=== PATIENT | female | born 1955 | race Caucasian/White ===

== ENCOUNTER 2017-08-08 20:19 | Emergency (ER) | payer MEDICARE, MEDICAID ==
[~2017-08-08] VITALS: Ht 157.5 cm; Wt 90.9 kg
[~2017-08-08 20:19] MED LIST: ASPI81TA52 PO; BIMA2.5D EACHEYE; BUDE10.2 INH; CITA20TA11 PO; CLOT15CR10 TP; COU1T PO; COU5T PO; DOCU100C40 PO; FLUT16SP26 NAS; GABA-338 PO; GABA600T2 PO; HYDR-3964 PO; LANTUS SQ; LEVO112T5 PO; LINA5TAB4 PO; LISI40TA4 PO; METO100T7 PO; MONT10TA24 PO; NIFE90TA37 PO; ZOC40T PO; [UNRECOGNIZED DRUG - CODE] LEFTEYE; [UNRECOGNIZED DRUG - CODE] OP
[2017-08-08 20:58] LABS: BASOPHILS % (AUTO) 0.5 % (0-1); EOSINOPHILS # (AUTO) 0.2 X10'3 (0-0.9); EOSINOPHILS % (AUTO) 2.8 % (0-6); HEMATOCRIT 37.4 % (35.0-45.0); HEMOGLOBIN 12.8 g/dl (12.0-16.0); LYMPHOCYTES # (AUTO) 1.9 X10'3 (1.1-4.8); LYMPHOCYTES % (AUTO) 25.3 % (21-51); MEAN CORPUSCULAR HEMOGLOBIN 30.9 PG (27.0-31.0); MEAN CORPUSCULAR HGB CONC 34.2 % (33.0-36.5); MEAN CORPUSCULAR VOLUME 90.4 FL (78-98); MEAN PLATELET VOLUME 8.4 FL (7.4-10.4); MONOCYTES # (AUTO) 0.5 X10'3 (0-0.9); MONOCYTES % (AUTO) 7.4 % (2-12); NEUTROPHILS # (AUTO) 4.7 X10'3 (1.8-7.7); PLATELET COUNT 181 X10'3 (140-440); RED BLOOD COUNT 4.13 X10'6 (4.20-5.60); RED CELL DISTRIBUTION WIDTH 14.6 % (11.5-14.5); WHITE BLOOD COUNT 7.4 X10'3 (4.5-11.0)
[2017-08-08 21:08] LABS: INR 2.2 INR; PARTIAL THROMBOPLASTIN TIME 51 SECONDS (22-32); PROTHROMBIN TIME 21.9 SECONDS (9.0-12.0)
[2017-08-08 21:24] LABS: ALANINE AMINOTRANSFERASE 37 U/L (12-78); ALBUMIN 3.3 G/DL (3.4-5.0); ALBUMIN/GLOBULIN RATIO 0.9 (1.1-1.5); ALKALINE PHOSPHATASE 94 IU/L (46-116); ANION GAP 8 (8-16); ASPARTATE AMINO TRANSFERASE 28 U/L (10-37); BILIRUBIN,TOTAL 0.2 MG/DL (0.1-1.0); BLOOD UREA NITROGEN 34 MG/DL (7-18); BUN/CREATININE RATIO 27.2 (6.6-38.0); CALCIUM 9.4 MG/DL (8.5-10.1); CHLORIDE 103 MMOL/L (99-107); CREATININE 1.25 MG/DL (0.40-0.90); GLUCOSE 263 MG/DL (70-104); POTASSIUM 3.6 MMOL/L (3.5-5.1); SODIUM 139 MMOL/L (135-145); TOTAL CARBON DIOXIDE 27.6 MMOL/L (24-32); TOTAL PROTEIN 6.8 G/DL (6.4-8.2); eGFR 44 ML/MIN
[2017-08-09 01:17] VITALS: BP 137/74
== END 2017-08-09 01:18 | disposition home or self-care (01) ==
LOC: ER 20:19
DX: R07.9 Chest pain, unspecified (principal); I25.10 Atherosclerotic heart disease of native coronary artery without angina pectoris; J44.9 Chronic obstructive pulmonary disease, unspecified; G89.29 Other chronic pain; Z86.718 Personal history of other venous thrombosis and embolism; Z95.5 Presence of coronary angioplasty implant and graft; Z95.1 Presence of aortocoronary bypass graft; Z87.891 Personal history of nicotine dependence; Z56.0 Unemployment, unspecified; Z88.8 Allergy status to other drugs, medicaments and biological substances; Z88.5 Allergy status to narcotic agent; Z79.82 Long term (current) use of aspirin; Z79.01 Long term (current) use of anticoagulants; Z79.899 Other long term (current) drug therapy; Z79.4 Long term (current) use of insulin
CPT/HCPCS: 36415; 71045; 80053; 82948; 84484; 85025; 85610; 85730; 93005; 99285

== ENCOUNTER 2017-08-31 16:46 | Inpatient (IN) | payer MEDICARE, MEDICAID ==
[~2017-08-31] VITALS: Ht 157.5 cm; Wt 97.3 kg
[~2017-08-31 16:46] MED LIST changes: +etomidate 2mg/ml inj. ONE; +rocuronium 10mg/ml inj IV ONE
[2017-08-31] MEDS ORDERED: aspirin 81mg tab.chew PO ONE (17:35)
[2017-08-31 18:11] LABS: BASOPHILS % (AUTO) 0.4 % (0-1); EOSINOPHILS # (AUTO) 0.2 X10'3 (0-0.9); EOSINOPHILS % (AUTO) 2.3 % (0-6); HEMATOCRIT 36.1 % (35.0-45.0); HEMOGLOBIN 12.4 g/dl (12.0-16.0); LYMPHOCYTES # (AUTO) 1.7 X10'3 (1.1-4.8); LYMPHOCYTES % (AUTO) 15.5 % (21-51); MEAN CORPUSCULAR HEMOGLOBIN 30.9 PG (27.0-31.0); MEAN CORPUSCULAR HGB CONC 34.5 % (33.0-36.5); MEAN CORPUSCULAR VOLUME 89.6 FL (78-98); MEAN PLATELET VOLUME 8.6 FL (7.4-10.4); MONOCYTES # (AUTO) 0.9 X10'3 (0-0.9); MONOCYTES % (AUTO) 8.2 % (2-12); NEUTROPHILS # (AUTO) 7.9 X10'3 (1.8-7.7); NEUTROPHILS % (AUTO) 73.6 % (42-75); PLATELET COUNT 155 X10'3 (140-440); RED BLOOD COUNT 4.03 X10'6 (4.20-5.60); RED CELL DISTRIBUTION WIDTH 14.4 % (11.5-14.5); WHITE BLOOD COUNT 10.7 X10'3 (4.5-11.0)
[2017-08-31] MEDS ORDERED: iohexol 350MG/ML 100ml bottle IV ONE (18:20)
[2017-08-31 18:22] LABS: PARTIAL THROMBOPLASTIN TIME 50 SECONDS (22-32); PROTHROMBIN TIME 20.2 SECONDS (9.0-12.0)
[2017-08-31 18:35] LABS: ALANINE AMINOTRANSFERASE 34 U/L (12-78); ALBUMIN 3.7 G/DL (3.4-5.0); ALBUMIN/GLOBULIN RATIO 1.1 (1.1-1.5); ALKALINE PHOSPHATASE 89 IU/L (46-116); ANION GAP 9 (8-16); ASPARTATE AMINO TRANSFERASE 18 U/L (10-37); BILIRUBIN,TOTAL 0.3 MG/DL (0.1-1.0); BLOOD UREA NITROGEN 44 MG/DL (7-18); BUN/CREATININE RATIO 31.4 (6.6-38.0); CALCIUM 9.2 MG/DL (8.5-10.1); CHLORIDE 99 MMOL/L (99-107); GLUCOSE 257 MG/DL (70-104); MAGNESIUM 1.9 MG/DL (1.5-2.4); POTASSIUM 3.8 MMOL/L (3.5-5.1); SODIUM 138 MMOL/L (135-145); TOTAL CARBON DIOXIDE 30.2 MMOL/L (24-32); eGFR 38 ML/MIN
[2017-08-31] MEDS ORDERED: phytonadione inj. 10 MG in normal saline 100ml IV soln 99 ML IV STA (20:04)
[2017-08-31] MEDS ORDERED: succinylcholine 20mg/ml inj IV ONE ×2 (20:10→20:45)
[2017-08-31] MEDS ORDERED: propofol 1000mg/100ml bottle 100 ML IV ONE (20:18)
[2017-08-31] MEDS ORDERED: tranexamic acid inj. 980 MG in normal saline 100ml IV soln 90.2 ML IV ONE (20:30)
[2017-08-31] MEDS ORDERED: heparin 10,000 units/1 ML INJ ONE (20:40)
[2017-08-31] MEDS ORDERED: ceFAZolin 1000mg inj ONE (20:40)
[2017-08-31] MEDS ORDERED: MIDAZolam 5mg/ml 2ml vial IV ONE (20:45)
[2017-08-31] MEDS ORDERED: sevoflurane 250ml liquid IH ONE (20:45)
[2017-08-31] MEDS ORDERED: midazolam 100mg in NS 100ml 100 ML IV PRN (20:45)
[2017-08-31] MEDS ORDERED: insulin regular, human 10 units/0.1 ml syringe IV ONE (20:50)
[2017-08-31] MEDS ORDERED: VECuronium br 10mg inj. IV ONE (20:57)
[2017-08-31] MEDS ORDERED: midazolam 2 mg/2 ml injection ONE (20:59)
[2017-08-31] MEDS ORDERED: fentaNYL/PF 50MCG/1 ML 2ML syringe ONE (20:59)
[2017-08-31 21:05] LABS: ABG BASE EXCESS 1.5 mmol/L (-2.0-3.0); ABG HCO3 26.3 mmol/L (22.0-26.0); ABG PCO2 (T) 43.1 mmHg (32.0-45.0); ABG PH (T) 7.406 (7.350-7.450); ABG PO2 (T) 68.4 mmHg (83-108); FCOHb 0.3 % (0.5-1.5); FMetHb 0.1 % (0.3-1.12); FO2Hb 92.6 % (94-100); MINUTE VOLUME 7 L/min; PATIENT TEMPERATURE 37.5; PEEP 5 cm H2O; RESPIRATORY RATE 14 b/min; TIDAL VOLUME 400 mL; TOTAL HEMOGLOBIN 11.9 G/dl (12.0-16.0)
[2017-08-31] MEDS ORDERED: ringers solution, lacted 1,000 ML IV SCH (21:57)
[2017-08-31] MEDS ORDERED: ondansetron/PF 4mg/2ml inj IV PRN (22:00)
[2017-08-31] MEDS ORDERED: magnesium 4gm in 100ml NS 100 ML IV PRN (22:00)
[2017-08-31] MEDS ORDERED: magnesium 2GM in 50ml NS 50 ML IV PRN (22:00)
[2017-08-31] MEDS ORDERED: potassium Cl 40MEQ/NS 500ml 500 ML IV PRN ×2 (22:00)
[2017-08-31] MEDS ORDERED: morphine 2 MG/ML inj. syringe IV PRN (22:00)
[2017-08-31] MEDS ORDERED: midazolam 2 mg/2 ml injection IV ONE (22:05)
[2017-08-31] MEDS ORDERED: fentaNYL/PF 50MCG/1 ML 2ML syringe IV PRN (22:05)
[2017-08-31] MEDS: midazolam 100mg in NS 100ml 100 ML IV PRN (22:41)
[2017-08-31] MEDS: FENTANYL-0.9 % NACL/PF 100 ML IV PRN (22:41)
[2017-08-31] MEDS: labetalol 5mg/ml 20ml inj. IV PRN ×3 (22:59→23:31)
[2017-08-31 23:00] VITALS: BP 259/85
[2017-08-31 23:00] LABS: HEMATOCRIT 31.3 % (35.0-45.0); HEMOGLOBIN 10.8 g/dl (12.0-16.0); MEAN CORPUSCULAR HGB CONC 34.4 % (33.0-36.5); MEAN CORPUSCULAR VOLUME 90.3 FL (78-98); MEAN PLATELET VOLUME 8.3 FL (7.4-10.4); PLATELET COUNT 143 X10'3 (140-440); RED BLOOD COUNT 3.46 X10'6 (4.20-5.60); RED CELL DISTRIBUTION WIDTH 14.6 % (11.5-14.5); WHITE BLOOD COUNT 8.4 X10'3 (4.5-11.0)
[2017-08-31 23:21] LABS: INR 1.6 INR; PARTIAL THROMBOPLASTIN TIME 37 SECONDS (22-32); PROTHROMBIN TIME 16.1 SECONDS (9.0-12.0)
[2017-08-31 23:22] LABS: ALBUMIN 3.2 G/DL (3.4-5.0); ANION GAP 10 (8-16); BLOOD UREA NITROGEN 35 MG/DL (7-18); BUN/CREATININE RATIO 29.2 (6.6-38.0); CALCIUM 8.3 MG/DL (8.5-10.1); CHLORIDE 105 MMOL/L (99-107); GLUCOSE 140 MG/DL (70-104); POTASSIUM 3.2 MMOL/L (3.5-5.1); SODIUM 142 MMOL/L (135-145); TOTAL CARBON DIOXIDE 26.7 MMOL/L (24-32); eGFR 46 ML/MIN
[2017-08-31 23:31] LABS: ABG BASE EXCESS 2.9 mmol/L (-2.0-3.0); ABG HCO3 24.5 mmol/L (22.0-26.0); ABG OXYGEN SATURATION 98.1 % (95-98); ABG PCO2 (T) 28.7 mmHg (32.0-45.0); ABG PH (T) 7.549 (7.350-7.450); ABG PO2 (T) 122.4 mmHg (83-108); FCOHb 0.3 % (0.5-1.5); FO2Hb 97.8 % (94-100); MINUTE VOLUME 9 L/min; PEEP 5 cm H2O; RESPIRATORY RATE 14 b/min; RESPIRATORY RATE (OBSERVED) 22 b/min; TIDAL VOLUME 400 mL; TOTAL HEMOGLOBIN 12.5 G/dl (12.0-16.0)
[2017-08-31] MEDS ORDERED: hydrALAZINE 20mg/ml inj. IV ONE ×2 (23:45→23:47)
[2017-08-31] MEDS: normal saline 1000ml 1,000 ML IV SCH (23:56)
[2017-09-01] VITALS (25 sets, daily range): BP systolic 122–179; BP diastolic 46–86
[2017-09-01] MEDS ORDERED: potassium Cl 40MEQ/NS 500ml 500 ML IV ONE (00:05)
[2017-09-01] MEDS ORDERED: hydrALAZINE 20mg/ml inj. IV ONE ×2 (01:50→19:55)
[2017-09-01] MEDS: mineral oil/petrolatum ophthal oint EACHEYE SCH ×4 (01:55→19:08)
[2017-09-01 03:02] LABS: BASOPHILS % (AUTO) 0.1 % (0-1); EOSINOPHILS # (AUTO) 0.2 X10'3 (0-0.9); EOSINOPHILS % (AUTO) 1.9 % (0-6); HEMATOCRIT 32.9 % (35.0-45.0); HEMOGLOBIN 11.2 g/dl (12.0-16.0); LYMPHOCYTES # (AUTO) 1.4 X10'3 (1.1-4.8); LYMPHOCYTES % (AUTO) 15.9 % (21-51); MEAN CORPUSCULAR HEMOGLOBIN 30.8 PG (27.0-31.0); MEAN CORPUSCULAR HGB CONC 34.1 % (33.0-36.5); MEAN CORPUSCULAR VOLUME 90.5 FL (78-98); MEAN PLATELET VOLUME 8.2 FL (7.4-10.4); MONOCYTES # (AUTO) 0.7 X10'3 (0-0.9); MONOCYTES % (AUTO) 7.8 % (2-12); NEUTROPHILS # (AUTO) 6.6 X10'3 (1.8-7.7); NEUTROPHILS % (AUTO) 74.3 % (42-75); PLATELET COUNT 151 X10'3 (140-440); RED BLOOD COUNT 3.64 X10'6 (4.20-5.60); RED CELL DISTRIBUTION WIDTH 14.1 % (11.5-14.5); WHITE BLOOD COUNT 8.8 X10'3 (4.5-11.0)
[2017-09-01 03:15] LABS: INR 1.3 INR; PARTIAL THROMBOPLASTIN TIME 35 SECONDS (22-32); PROTHROMBIN TIME 13.8 SECONDS (9.0-12.0)
[2017-09-01 03:17] LABS: ANION GAP 13 (8-16); BILIRUBIN,TOTAL 0.5 MG/DL (0.1-1.0); BLOOD UREA NITROGEN 32 MG/DL (7-18); CALCIUM 8.5 MG/DL (8.5-10.1); CHLORIDE 106 MMOL/L (99-107); GLUCOSE 188 MG/DL (70-104); MAGNESIUM 1.7 MG/DL (1.5-2.4); POTASSIUM 3.5 MMOL/L (3.5-5.1); SODIUM 144 MMOL/L (135-145); TOTAL CARBON DIOXIDE 25.3 MMOL/L (24-32); eGFR 56 ML/MIN
[2017-09-01 03:18] LABS: ALANINE AMINOTRANSFERASE 29 U/L (12-78); ALBUMIN 3.4 G/DL (3.4-5.0); ALBUMIN/GLOBULIN RATIO 1.1 (1.1-1.5); ALKALINE PHOSPHATASE 72 IU/L (46-116); ASPARTATE AMINO TRANSFERASE 17 U/L (10-37); TOTAL PROTEIN 6.6 G/DL (6.4-8.2)
[2017-09-01 04:36] LABS: ABG BASE EXCESS 1.5 mmol/L (-2.0-3.0); ABG HCO3 24.9 mmol/L (22.0-26.0); ABG OXYGEN SATURATION 97.9 % (95-98); ABG PCO2 (T) 34.7 mmHg (32.0-45.0); ABG PH (T) 7.473 (7.350-7.450); ABG PO2 (T) 112.9 mmHg (83-108); FCOHb 0.3 % (0.5-1.5); FMetHb 0.3 % (0.3-1.12); FO2Hb 97.3 % (94-100); MINUTE VOLUME 7 L/min; PATIENT TEMPERATURE 36.9; PEEP 5 cm H2O; RESPIRATORY RATE 14 b/min; RESPIRATORY RATE (OBSERVED) 17 b/min; TIDAL VOLUME 400 mL; TOTAL HEMOGLOBIN 11.4 G/dl (12.0-16.0)
[2017-09-01] MEDS: FENTANYL-0.9 % NACL/PF 100 ML IV PRN ×2 (05:06→20:53)
[2017-09-01] MEDS: midazolam 100mg in NS 100ml 100 ML IV PRN (05:07)
[2017-09-01] MEDS: cefazolin 1gm/NS 100mL 100 ML IV SCH ×3 (06:20→23:20)
[2017-09-01] MEDS: pantoprazole 40 MG vial IV SCH (08:14)
[2017-09-01] MEDS ORDERED: HYDROcodone/acetaminophen 5mg/325mg tablet PO PRN (12:10)
[2017-09-01] MEDS ORDERED: iohexol 300mg/ml 100ml inj. ONE (12:20)
[2017-09-01] MEDS ORDERED: DORZ10DR2 (12:49)
[2017-09-01] MEDS: normal saline 1000ml 1,000 ML IV SCH ×3 (13:21→23:20)
[2017-09-01] MEDS: lactobacillus rhamnosus 10,000 MMU CELLS/CAPSULE PO SCH (17:46)
[2017-09-01] MEDS: gabapentin 300mg capsule PO SCH (19:08)
[2017-09-01] MEDS: prednisoLONE acetate 1% ophth susp 5ml LEFTEYE SCH (19:09)
[2017-09-01] MEDS: latanoprost 0.005% 2.5ml ophthalmic drops EACHEYE SCH (19:11)
[2017-09-01] MEDS: DORZOLAMIDE EACHEYE SCH (19:11)
[2017-09-01] MEDS ORDERED: gabapentin 300mg capsule PO SCH (21:00)
[2017-09-02] VITALS (24 sets, daily range): BP systolic 83–196; BP diastolic 40–88
[2017-09-02] MEDS: midazolam 100mg in NS 100ml 100 ML IV PRN (01:43)
[2017-09-02] MEDS: mineral oil/petrolatum ophthal oint EACHEYE SCH ×4 (01:43→20:04)
[2017-09-02 02:52] LABS: BASOPHILS % (AUTO) 0.4 % (0-1); EOSINOPHILS # (AUTO) 0.2 X10'3 (0-0.9); EOSINOPHILS % (AUTO) 2.6 % (0-6); HEMOGLOBIN 10.4 g/dl (12.0-16.0); LYMPHOCYTES # (AUTO) 1.4 X10'3 (1.1-4.8); MEAN CORPUSCULAR HEMOGLOBIN 30.7 PG (27.0-31.0); MEAN CORPUSCULAR HGB CONC 33.5 % (33.0-36.5); MEAN CORPUSCULAR VOLUME 91.7 FL (78-98); MEAN PLATELET VOLUME 8.3 FL (7.4-10.4); MONOCYTES # (AUTO) 0.8 X10'3 (0-0.9); MONOCYTES % (AUTO) 9.2 % (2-12); NEUTROPHILS # (AUTO) 6.2 X10'3 (1.8-7.7); NEUTROPHILS % (AUTO) 71.8 % (42-75); PLATELET COUNT 139 X10'3 (140-440); RED BLOOD COUNT 3.38 X10'6 (4.20-5.60); RED CELL DISTRIBUTION WIDTH 14.9 % (11.5-14.5); WHITE BLOOD COUNT 8.7 X10'3 (4.5-11.0)
[2017-09-02 03:08] LABS: INR 1.1 INR; PARTIAL THROMBOPLASTIN TIME 34 SECONDS (22-32); PROTHROMBIN TIME 10.9 SECONDS (9.0-12.0)
[2017-09-02 03:23] LABS: ALANINE AMINOTRANSFERASE 24 U/L (12-78); ALBUMIN 2.7 G/DL (3.4-5.0); ALBUMIN/GLOBULIN RATIO 0.8 (1.1-1.5); ALKALINE PHOSPHATASE 65 IU/L (46-116); ANION GAP 7 (8-16); ASPARTATE AMINO TRANSFERASE 15 U/L (10-37); BILIRUBIN,TOTAL 0.4 MG/DL (0.1-1.0); BLOOD UREA NITROGEN 19 MG/DL (7-18); CHLORIDE 110 MMOL/L (99-107); GLUCOSE 144 MG/DL (70-104); MAGNESIUM 1.7 MG/DL (1.5-2.4); POTASSIUM 3.3 MMOL/L (3.5-5.1); SODIUM 143 MMOL/L (135-145); TOTAL CARBON DIOXIDE 26.3 MMOL/L (24-32); TOTAL PROTEIN 6.1 G/DL (6.4-8.2); eGFR 56 ML/MIN
[2017-09-02 04:01] LABS: ABG BASE EXCESS 0.1 mmol/L (-2.0-3.0); ABG HCO3 23.4 mmol/L (22.0-26.0); ABG OXYGEN SATURATION 95.5 % (95-98); ABG PCO2 (T) 33.9 mmHg (32.0-45.0); ABG PH (T) 7.458 (7.350-7.450); ABG PO2 (T) 78.5 mmHg (83-108); FCOHb 0.3 % (0.5-1.5); FMetHb 0.3 % (0.3-1.12); FO2Hb 94.9 % (94-100); MINUTE VOLUME 10 L/min; PATIENT TEMPERATURE 37.7; PEEP 5 cm H2O; RESPIRATORY RATE 14 b/min; RESPIRATORY RATE (OBSERVED) 23 b/min; TIDAL VOLUME 400 mL; TOTAL HEMOGLOBIN 10.9 G/dl (12.0-16.0)
[2017-09-02] MEDS ORDERED: potassium Cl 40MEQ/NS 500ml 500 ML IV ONE (04:15)
[2017-09-02] MEDS: lactobacillus rhamnosus 10,000 MMU CELLS/CAPSULE PO SCH ×2 (07:39→17:58)
[2017-09-02] MEDS: gabapentin 300mg capsule PO SCH ×2 (07:40→20:08)
[2017-09-02] MEDS: citalopram 20mg tablet PO SCH (07:40)
[2017-09-02] MEDS: pantoprazole 40 MG vial IV SCH (07:40)
[2017-09-02] MEDS: NIFEdipine XL 30mg tablet PO SCH (07:41)
[2017-09-02] MEDS: montelukast 10mg tablet PO SCH (07:41)
[2017-09-02] MEDS: levoTHYROXINE 112mcg tablet PO SCH (07:42)
[2017-09-02] MEDS: lisinopril 20mg tablet PO SCH (07:42)
[2017-09-02] MEDS: fluticasone nasal spray 16GM bottle NS SCH (07:43)
[2017-09-02] MEDS: prednisoLONE acetate 1% ophth susp 5ml LEFTEYE SCH ×2 (07:43→20:08)
[2017-09-02] MEDS: clotrimazole topical cream 15gm tube TP SCH (07:43)
[2017-09-02] MEDS: fluticasone/vilanterol 200mcg/25mcg inhaler IH SCH (08:00)
[2017-09-02] MEDS: docusate sod 100mg capsule PO SCH (08:00)
[2017-09-02] MEDS ORDERED: metoprolol succinate 25mg (24-HOUR) SR. Tablet PO SCH (08:00)
[2017-09-02] MEDS: DORZOLAMIDE EACHEYE SCH ×2 (08:00→20:04)
[2017-09-02] MEDS: cefazolin 1gm/NS 100mL 100 ML IV SCH (10:13)
[2017-09-02] MEDS ORDERED: NORepinephrine 8mg/ 250ml NS 250 ML IV SCH (12:10)
[2017-09-02] MEDS ORDERED: furosemide 20 MG/2 ML vial IV ONE (12:10)
[2017-09-02] MEDS ORDERED: albumin (human) 25% 100 ML IV solution IV ONE (12:15)
[2017-09-02] MEDS: furosemide 40mg/4ml inj IV SCH ×2 (12:15→20:12)
[2017-09-02] MEDS ORDERED: albumin (human) 25% 100ml IV 100 ML IV ONE (12:45)
[2017-09-02] MEDS: methylPREDNISolone sod succ 125mg/2ml vial IV SCH ×2 (14:31→20:05)
[2017-09-02] MEDS ORDERED: dextrose ORAL solution 15 GM/59 ML bottle PO PRN ×2 (15:05)
[2017-09-02] MEDS ORDERED: dextrose 50%-water 50ml dispensing syringe IV PRN ×2 (15:05)
[2017-09-02] MEDS ORDERED: MESSAGE TO PHARMACY PO ONE (15:05)
[2017-09-02] MEDS ORDERED: glucagon, human recombinant 1mg kit SUBCUT PRN (15:05)
[2017-09-02] MEDS ORDERED: insulin Lispro (HumaLOG) vial - multi-dose SQ SCH (15:05)
[2017-09-02] MEDS: normal saline 1000ml 1,000 ML IV SCH (16:07)
[2017-09-02] MEDS: insulin regular, human vial - multi-dose SQ SCH (19:01)
[2017-09-02] MEDS: piperacillin/tazo 3.375gm/50ml 50 ML IV SCH (20:07)
[2017-09-02] MEDS: latanoprost 0.005% 2.5ml ophthalmic drops EACHEYE SCH (20:09)
[2017-09-02] MEDS: insulin glargine (Lantus) pen - multi-dose SQ SCH (20:19)
[2017-09-02] MEDS: FENTANYL-0.9 % NACL/PF 100 ML IV PRN (21:12)
[2017-09-02 21:14] LABS: HEMOGLOBIN A1C 8.8 % (4.5-6.2)
[2017-09-03] VITALS (23 sets, daily range): BP systolic 136–158; BP diastolic 48–64
[2017-09-03] MEDS: methylPREDNISolone sod succ 125mg/2ml vial IV SCH ×4 (02:07→20:02)
[2017-09-03] MEDS: piperacillin/tazo 3.375gm/50ml 50 ML IV SCH ×4 (02:08→20:03)
[2017-09-03] MEDS: mineral oil/petrolatum ophthal oint EACHEYE SCH ×4 (02:08→20:03)
[2017-09-03 02:30] LABS: BASOPHILS % (AUTO) 0.1 % (0-1); EOSINOPHILS # (AUTO) 0.1 X10'3 (0-0.9); EOSINOPHILS % (AUTO) 1.1 % (0-6); LYMPHOCYTES # (AUTO) 0.5 X10'3 (1.1-4.8); LYMPHOCYTES % (AUTO) 6.8 % (21-51); MEAN CORPUSCULAR HEMOGLOBIN 31.3 PG (27.0-31.0); MEAN CORPUSCULAR HGB CONC 34.6 % (33.0-36.5); MEAN CORPUSCULAR VOLUME 90.5 FL (78-98); MEAN PLATELET VOLUME 8.6 FL (7.4-10.4); MONOCYTES # (AUTO) 0.1 X10'3 (0-0.9); MONOCYTES % (AUTO) 1.4 % (2-12); NEUTROPHILS # (AUTO) 6.6 X10'3 (1.8-7.7); NEUTROPHILS % (AUTO) 90.6 % (42-75); PLATELET COUNT 124 X10'3 (140-440); RED CELL DISTRIBUTION WIDTH 14.3 % (11.5-14.5); WHITE BLOOD COUNT 7.2 X10'3 (4.5-11.0)
[2017-09-03 02:41] LABS: INR 1.1 INR; PARTIAL THROMBOPLASTIN TIME 34 SECONDS (22-32)
[2017-09-03] MEDS: insulin regular, human vial - multi-dose SQ SCH ×3 (02:42→13:45)
[2017-09-03 02:47] LABS: ALANINE AMINOTRANSFERASE 25 U/L (12-78); ALBUMIN 3.4 G/DL (3.4-5.0); ALKALINE PHOSPHATASE 61 IU/L (46-116); ANION GAP 13 (8-16); ASPARTATE AMINO TRANSFERASE 20 U/L (10-37); BILIRUBIN,TOTAL 0.5 MG/DL (0.1-1.0); BLOOD UREA NITROGEN 32 MG/DL (7-18); CALCIUM 8.1 MG/DL (8.5-10.1); CHLORIDE 108 MMOL/L (99-107); GLUCOSE 324 MG/DL (70-104); MAGNESIUM 1.7 MG/DL (1.5-2.4); POTASSIUM 3.2 MMOL/L (3.5-5.1); SODIUM 142 MMOL/L (135-145); TOTAL CARBON DIOXIDE 20.7 MMOL/L (24-32); TOTAL PROTEIN 6.7 G/DL (6.4-8.2); eGFR 33 ML/MIN
[2017-09-03 03:41] LABS: ABG HCO3 18.1 mmol/L (22.0-26.0); ABG OXYGEN SATURATION 91.3 % (95-98); ABG PCO2 (T) 26.9 mmHg (32.0-45.0); ABG PH (T) 7.442 (7.350-7.450); ABG PO2 (T) 56.5 mmHg (83-108); FCOHb 0.2 % (0.5-1.5); FMetHb 0.3 % (0.3-1.12); FO2Hb 90.8 % (94-100); MINUTE VOLUME 8 L/min; PATIENT TEMPERATURE 36.3; PEEP 5 cm H2O; RESPIRATORY RATE 14 b/min; RESPIRATORY RATE (OBSERVED) 20 b/min; TIDAL VOLUME 400 mL; TOTAL HEMOGLOBIN 11.2 G/dl (12.0-16.0)
[2017-09-03] MEDS: normal saline 1000ml 1,000 ML IV SCH ×2 (04:02→11:55)
[2017-09-03] MEDS ORDERED: potassium Cl 40MEQ/NS 500ml 500 ML IV ONE (05:02)
[2017-09-03] MEDS: docusate sod 100mg capsule PO SCH (08:00)
[2017-09-03] MEDS: NIFEdipine XL 30mg tablet PO SCH (08:00)
[2017-09-03] MEDS: fluticasone/vilanterol 200mcg/25mcg inhaler IH SCH (08:00)
[2017-09-03] MEDS: lisinopril 20mg tablet PO SCH (08:54)
[2017-09-03] MEDS: levoTHYROXINE 112mcg tablet PO SCH (08:54)
[2017-09-03] MEDS: montelukast 10mg tablet PO SCH (08:54)
[2017-09-03] MEDS: amLODIPine 5mg tablet PO SCH (08:54)
[2017-09-03] MEDS: citalopram 20mg tablet PO SCH (08:54)
[2017-09-03] MEDS: gabapentin 300mg capsule PO SCH ×2 (08:54→20:05)
[2017-09-03] MEDS: clotrimazole topical cream 15gm tube TP SCH (08:55)
[2017-09-03] MEDS: furosemide 40mg/4ml inj IV SCH ×2 (08:55→20:02)
[2017-09-03] MEDS: pantoprazole 40 MG vial IV SCH (08:55)
[2017-09-03] MEDS: fluticasone nasal spray 16GM bottle NS SCH (08:56)
[2017-09-03] MEDS: prednisoLONE acetate 1% ophth susp 5ml LEFTEYE SCH ×2 (08:56→20:04)
[2017-09-03] MEDS: DORZOLAMIDE EACHEYE SCH ×2 (08:58→20:04)
[2017-09-03] MEDS: lactobacillus rhamnosus 10,000 MMU CELLS/CAPSULE PO SCH ×2 (09:12→16:33)
[2017-09-03] MEDS: ipratropium/albuterol 3ml nebule NEB SCH ×4 (10:50→23:27)
[2017-09-03] MEDS: midazolam 100mg in NS 100ml 100 ML IV PRN (16:34)
[2017-09-03 20:01] LABS: ABG HCO3 20.9 mmol/L (22.0-26.0); ABG OXYGEN SATURATION 94.6 % (95-98); ABG PCO2 (T) 36.1 mmHg (32.0-45.0); ABG PH (T) 7.377 (7.350-7.450); ABG PO2 (T) 70.4 mmHg (83-108); FCOHb 0.3 % (0.5-1.5); FMetHb 0.3 % (0.3-1.12); MINUTE VOLUME 7 L/min; PATIENT TEMPERATURE 36.3; PEEP 8 cm H2O; RESPIRATORY RATE 12 b/min; RESPIRATORY RATE (OBSERVED) 12 b/min; TIDAL VOLUME 500 mL; TOTAL HEMOGLOBIN 11.6 G/dl (12.0-16.0)
[2017-09-03] MEDS: latanoprost 0.005% 2.5ml ophthalmic drops EACHEYE SCH (20:05)
[2017-09-03] MEDS ORDERED: potassium CL 20mEq in D5-1/2NS 1,000 ML IV PRN (20:25)
[2017-09-03] MEDS ORDERED: insulin regular, human 10 units/0.1 ml syringe SQ PRN (20:25)
[2017-09-03] MEDS: metoprolol succinate 25mg (24-HOUR) SR. Tablet PO SCH (21:00)
[2017-09-03] MEDS: insulin regular, DKA only 100 UNIT in normal saline 100ml IV soln 99 ML IV SCH ×2 (21:25)
[2017-09-03] MEDS: insulin glargine (Lantus) pen - multi-dose SQ SCH (21:29)
[2017-09-03] MEDS: insulin Lispro (HumaLOG) vial - multi-dose SQ SCH ×2 (22:12→23:04)
[2017-09-03 22:56] LABS: ALBUMIN 3.1 G/DL (3.4-5.0); ANION GAP 12 (8-16); BLOOD UREA NITROGEN 46 MG/DL (7-18); BUN/CREATININE RATIO 30.7 (6.6-38.0); CALCIUM 8.1 MG/DL (8.5-10.1); CHLORIDE 109 MMOL/L (99-107); GLUCOSE 439 MG/DL (70-104); SODIUM 143 MMOL/L (135-145); TOTAL CARBON DIOXIDE 21.9 MMOL/L (24-32); eGFR 35 ML/MIN
[2017-09-03 23:05] LABS: POTASSIUM 2.8 MMOL/L (3.5-5.1)
[2017-09-03] MEDS ORDERED: potassium Cl 40MEQ/250ML bag 500 ML IV ONE (23:14)
[2017-09-03] MEDS: potassium Cl 40MEQ/250ML bag 250 ML IV PRN (23:19)
[2017-09-03] MEDS: FENTANYL-0.9 % NACL/PF 100 ML IV PRN (23:23)
[2017-09-04] VITALS (24 sets, daily range): BP systolic 139–166; BP diastolic 44–59
[2017-09-04] MEDS: insulin Lispro (HumaLOG) vial - multi-dose SQ SCH ×6 (00:03→05:02)
[2017-09-04 01:39] LABS: ALBUMIN 3.1 G/DL (3.4-5.0); ANION GAP 12 (8-16); BLOOD UREA NITROGEN 45 MG/DL (7-18); BUN/CREATININE RATIO 32.1 (6.6-38.0); CALCIUM 8.2 MG/DL (8.5-10.1); CHLORIDE 110 MMOL/L (99-107); GLUCOSE 378 MG/DL (70-104); POTASSIUM 3.3 MMOL/L (3.5-5.1); SODIUM 145 MMOL/L (135-145); TOTAL CARBON DIOXIDE 23.2 MMOL/L (24-32); eGFR 38 ML/MIN
[2017-09-04] MEDS: insulin regular, DKA only 100 UNIT in normal saline 100ml IV soln 99 ML IV SCH ×12 (02:16→14:34)
[2017-09-04] MEDS: methylPREDNISolone sod succ 125mg/2ml vial IV SCH ×4 (02:22→19:46)
[2017-09-04] MEDS: mineral oil/petrolatum ophthal oint EACHEYE SCH ×4 (02:22→19:47)
[2017-09-04] MEDS: piperacillin/tazo 3.375gm/50ml 50 ML IV SCH ×4 (02:22→19:46)
[2017-09-04] MEDS ORDERED: VANCOMYCIN LEVEL IV NR (03:30)
[2017-09-04 03:38] LABS: PARTIAL THROMBOPLASTIN TIME 29 SECONDS (22-32); PROTHROMBIN TIME 10.7 SECONDS (9.0-12.0)
[2017-09-04 03:41] LABS: ALANINE AMINOTRANSFERASE 16 U/L (12-78); ALBUMIN/GLOBULIN RATIO 0.9 (1.1-1.5); ALKALINE PHOSPHATASE 62 IU/L (46-116); ANION GAP 11 (8-16); ASPARTATE AMINO TRANSFERASE 12 U/L (10-37); BILIRUBIN,TOTAL 0.3 MG/DL (0.1-1.0); BLOOD UREA NITROGEN 46 MG/DL (7-18); BUN/CREATININE RATIO 32.9 (6.6-38.0); CALCIUM 8.4 MG/DL (8.5-10.1); CHLORIDE 111 MMOL/L (99-107); GLUCOSE 342 MG/DL (70-104); MAGNESIUM 1.6 MG/DL (1.5-2.4); POTASSIUM 3.1 MMOL/L (3.5-5.1); PREALBUMIN 15.7 MG/DL (19-36); SODIUM 146 MMOL/L (135-145); TOTAL CARBON DIOXIDE 24.2 MMOL/L (24-32); TOTAL PROTEIN 6.5 G/DL (6.4-8.2); eGFR 38 ML/MIN
[2017-09-04] MEDS: ipratropium/albuterol 3ml nebule NEB SCH ×6 (03:44→23:13)
[2017-09-04 03:52] LABS: BASOPHILS % (AUTO) 0 % (0-1); EOSINOPHILS # (AUTO) 0.1 X10'3 (0-0.9); EOSINOPHILS % (AUTO) 1.3 % (0-6); HEMATOCRIT 30.2 % (35.0-45.0); LYMPHOCYTES # (AUTO) 0.4 X10'3 (1.1-4.8); MEAN CORPUSCULAR HEMOGLOBIN 30.4 PG (27.0-31.0); MEAN CORPUSCULAR HGB CONC 33.1 % (33.0-36.5); MEAN CORPUSCULAR VOLUME 91.8 FL (78-98); MEAN PLATELET VOLUME 9.1 FL (7.4-10.4); MONOCYTES # (AUTO) 0.3 X10'3 (0-0.9); MONOCYTES % (AUTO) 3.5 % (2-12); NEUTROPHILS # (AUTO) 8.4 X10'3 (1.8-7.7); NEUTROPHILS % (AUTO) 91.2 % (42-75); PLATELET COUNT 172 X10'3 (140-440); RED BLOOD COUNT 3.29 X10'6 (4.20-5.60); RED CELL DISTRIBUTION WIDTH 14.7 % (11.5-14.5); WHITE BLOOD COUNT 9.2 X10'3 (4.5-11.0)
[2017-09-04 04:01] LABS: ABG BASE EXCESS -3.9 mmol/L (-2.0-3.0); ABG HCO3 20.7 mmol/L (22.0-26.0); ABG OXYGEN SATURATION 93.5 % (95-98); ABG PCO2 (T) 34.9 mmHg (32.0-45.0); ABG PH (T) 7.388 (7.350-7.450); ABG PO2 (T) 67.7 mmHg (83-108); FCOHb 0.2 % (0.5-1.5); FMetHb 0.3 % (0.3-1.12); MINUTE VOLUME 7 L/min; PATIENT TEMPERATURE 36.5; PEEP 8 cm H2O; RESPIRATORY RATE 12 b/min; RESPIRATORY RATE (OBSERVED) 12 b/min; TIDAL VOLUME 500 mL; TOTAL HEMOGLOBIN 10.7 G/dl (12.0-16.0)
[2017-09-04] MEDS ORDERED: insulin R INFUSION 1 ML IV ONE (04:36)
[2017-09-04 05:10] LABS: VANCOMYCIN,TROUGH 29.5 UG/ML (6.0-14.0)
[2017-09-04] MEDS: potassium Cl 40MEQ/250ML bag 250 ML IV PRN ×2 (06:02→20:35)
[2017-09-04] MEDS: fluticasone/vilanterol 200mcg/25mcg inhaler IH SCH (08:00)
[2017-09-04] MEDS: docusate sodium 100mg/10ml UD cup PO SCH (08:17)
[2017-09-04] MEDS: amLODIPine 5mg tablet PO SCH (08:18)
[2017-09-04] MEDS: lisinopril 20mg tablet PO SCH (08:19)
[2017-09-04] MEDS: lactobacillus rhamnosus 10,000 MMU CELLS/CAPSULE PO SCH ×2 (08:19→16:47)
[2017-09-04] MEDS: levoTHYROXINE 112mcg tablet PO SCH (08:20)
[2017-09-04] MEDS: gabapentin 300mg capsule PO SCH ×2 (08:20→19:47)
[2017-09-04] MEDS: montelukast 10mg tablet PO SCH (08:21)
[2017-09-04] MEDS: citalopram 20mg tablet PO SCH (08:21)
[2017-09-04] MEDS: pantoprazole 40 MG vial IV SCH (08:22)
[2017-09-04] MEDS: furosemide 40mg/4ml inj IV SCH ×2 (08:22→19:46)
[2017-09-04] MEDS: DORZOLAMIDE EACHEYE SCH ×2 (08:29→20:39)
[2017-09-04] MEDS: prednisoLONE acetate 1% ophth susp 5ml LEFTEYE SCH ×2 (08:31→20:39)
[2017-09-04] MEDS: fluticasone nasal spray 16GM bottle NS SCH (08:31)
[2017-09-04] MEDS: clotrimazole topical cream 15gm tube TP SCH (08:32)
[2017-09-04] MEDS: midazolam 100mg in NS 100ml 100 ML IV PRN (09:13)
[2017-09-04] MEDS: vancomycin/NS 1 GM ADD-VANTAGE 250 ML IV SCH (16:47)
[2017-09-04] MEDS: FENTANYL-0.9 % NACL/PF 100 ML IV PRN (19:55)
[2017-09-04] MEDS: latanoprost 0.005% 2.5ml ophthalmic drops EACHEYE SCH (20:39)
[2017-09-04] MEDS: metoprolol succinate 25mg (24-HOUR) SR. Tablet PO SCH (20:39)
[2017-09-05] VITALS (25 sets, daily range): BP systolic 155–207; BP diastolic 55–86
[2017-09-05] MEDS: methylPREDNISolone sod succ 125mg/2ml vial IV SCH ×2 (01:45→08:14)
[2017-09-05] MEDS: mineral oil/petrolatum ophthal oint EACHEYE SCH ×4 (01:45→19:58)
[2017-09-05] MEDS: piperacillin/tazo 3.375gm/50ml 50 ML IV SCH ×2 (01:45→08:13)
[2017-09-05] MEDS: midazolam 100mg in NS 100ml 100 ML IV PRN ×2 (01:58→21:50)
[2017-09-05 02:35] LABS: ABG BASE EXCESS 0.4 mmol/L (-2.0-3.0); ABG HCO3 24.9 mmol/L (22.0-26.0); ABG OXYGEN SATURATION 91.5 % (95-98); ABG PH (T) 7.413 (7.350-7.450); ABG PO2 (T) 60.1 mmHg (83-108); FCOHb 0.3 % (0.5-1.5); FMetHb 0.3 % (0.3-1.12); MINUTE VOLUME 7 L/min; PATIENT TEMPERATURE 37.3; PEEP 5 cm H2O; RESPIRATORY RATE 16 b/min; RESPIRATORY RATE (OBSERVED) 16 b/min; TIDAL VOLUME 400 mL; TOTAL HEMOGLOBIN 10.8 G/dl (12.0-16.0)
[2017-09-05] MEDS: ipratropium/albuterol 3ml nebule NEB SCH ×6 (02:44→23:20)
[2017-09-05 03:38] LABS: BASOPHILS % (AUTO) 0 % (0-1); EOSINOPHILS # (AUTO) 0.2 X10'3 (0-0.9); EOSINOPHILS % (AUTO) 1.6 % (0-6); HEMATOCRIT 30.7 % (35.0-45.0); HEMOGLOBIN 10.2 g/dl (12.0-16.0); LYMPHOCYTES # (AUTO) 0.5 X10'3 (1.1-4.8); LYMPHOCYTES % (AUTO) 4.2 % (21-51); MEAN CORPUSCULAR HEMOGLOBIN 30.6 PG (27.0-31.0); MEAN CORPUSCULAR HGB CONC 33.4 % (33.0-36.5); MEAN CORPUSCULAR VOLUME 91.6 FL (78-98); MEAN PLATELET VOLUME 8.5 FL (7.4-10.4); MONOCYTES # (AUTO) 0.6 X10'3 (0-0.9); MONOCYTES % (AUTO) 4.7 % (2-12); NEUTROPHILS # (AUTO) 10.7 X10'3 (1.8-7.7); NEUTROPHILS % (AUTO) 89.5 % (42-75); PLATELET COUNT 194 X10'3 (140-440); RED BLOOD COUNT 3.35 X10'6 (4.20-5.60); RED CELL DISTRIBUTION WIDTH 14.8 % (11.5-14.5)
[2017-09-05 03:52] LABS: PARTIAL THROMBOPLASTIN TIME 25 SECONDS (22-32); PROTHROMBIN TIME 10.3 SECONDS (9.0-12.0)
[2017-09-05] MEDS: vancomycin/NS 1 GM ADD-VANTAGE 250 ML IV SCH (03:54)
[2017-09-05 04:04] LABS: ALANINE AMINOTRANSFERASE 17 U/L (12-78); ALBUMIN 2.9 G/DL (3.4-5.0); ALBUMIN/GLOBULIN RATIO 0.8 (1.1-1.5); ALKALINE PHOSPHATASE 58 IU/L (46-116); ANION GAP 9 (8-16); ASPARTATE AMINO TRANSFERASE 11 U/L (10-37); BILIRUBIN,TOTAL 0.3 MG/DL (0.1-1.0); BLOOD UREA NITROGEN 56 MG/DL (7-18); BUN/CREATININE RATIO 43.1 (6.6-38.0); CALCIUM 8.6 MG/DL (8.5-10.1); CHLORIDE 117 MMOL/L (99-107); GLUCOSE 150 MG/DL (70-104); MAGNESIUM 1.6 MG/DL (1.5-2.4); POTASSIUM 3.1 MMOL/L (3.5-5.1); SODIUM 153 MMOL/L (135-145); TOTAL CARBON DIOXIDE 26.7 MMOL/L (24-32); TOTAL PROTEIN 6.4 G/DL (6.4-8.2); eGFR 42 ML/MIN
[2017-09-05] MEDS: amLODIPine 5mg tablet PO SCH (05:13)
[2017-09-05] MEDS: lisinopril 20mg tablet PO SCH (05:13)
[2017-09-05] MEDS: potassium Cl 40MEQ/250ML bag 250 ML IV PRN ×3 (05:48→21:18)
[2017-09-05] MEDS: fluticasone/vilanterol 200mcg/25mcg inhaler IH SCH (06:27)
[2017-09-05] MEDS: citalopram 20mg tablet PO SCH (08:00)
[2017-09-05] MEDS: DORZOLAMIDE EACHEYE SCH ×2 (08:00→19:59)
[2017-09-05] MEDS: docusate sodium 100mg/10ml UD cup PO SCH (08:12)
[2017-09-05] MEDS: levoTHYROXINE 112mcg tablet PO SCH (08:12)
[2017-09-05] MEDS: montelukast 10mg tablet PO SCH (08:12)
[2017-09-05] MEDS: lactobacillus rhamnosus 10,000 MMU CELLS/CAPSULE PO SCH ×2 (08:12→16:52)
[2017-09-05] MEDS: gabapentin 300mg capsule PO SCH ×2 (08:13→19:58)
[2017-09-05] MEDS: pantoprazole 40 MG vial IV SCH (08:13)
[2017-09-05] MEDS: furosemide 40mg/4ml inj IV SCH ×2 (08:14→16:52)
[2017-09-05] MEDS: clotrimazole topical cream 15gm tube TP SCH (08:14)
[2017-09-05] MEDS: prednisoLONE acetate 1% ophth susp 5ml LEFTEYE SCH ×2 (08:14→19:58)
[2017-09-05] MEDS: fluticasone nasal spray 16GM bottle NS SCH (08:15)
[2017-09-05] MEDS: insulin regular, DKA only 100 UNIT in normal saline 100ml IV soln 99 ML IV SCH ×14 (08:33→18:19)
[2017-09-05] MEDS ORDERED: dexmedetomidine inj. 400 MCG in normal saline 100ml IV soln 100 ML IV PRN (09:45)
[2017-09-05] MEDS: FENTANYL-0.9 % NACL/PF 100 ML IV PRN ×2 (11:42→19:17)
[2017-09-05] MEDS: methylPREDNISolone sod succ/PF 40mg inj. IV SCH ×2 (13:48→19:59)
[2017-09-05] MEDS: metoprolol tartrate 50mg tablet PO SCH ×2 (13:48→16:54)
[2017-09-05] MEDS ORDERED: insulin glargine (Lantus) pen - multi-dose SQ ONE (17:50)
[2017-09-05] MEDS ORDERED: acetaminophen 325mg tablet PO PRN (17:50)
[2017-09-05] MEDS: insulin glargine (Lantus) pen - multi-dose SQ SCH (21:07)
[2017-09-05] MEDS: latanoprost 0.005% 2.5ml ophthalmic drops EACHEYE SCH (21:11)
[2017-09-05] MEDS ORDERED: insulin R INFUSION 1 ML IV ONE (23:22)
[2017-09-06] VITALS (24 sets, daily range): BP systolic 177–207; BP diastolic 56–76
[2017-09-06] MEDS: insulin regular, DKA only 100 UNIT in normal saline 100ml IV soln 99 ML IV SCH ×26 (00:18→21:07)
[2017-09-06 01:28] LABS: PARTIAL THROMBOPLASTIN TIME 24 SECONDS (22-32); PROTHROMBIN TIME 10.4 SECONDS (9.0-12.0)
[2017-09-06 01:35] LABS: ALANINE AMINOTRANSFERASE 25 U/L (12-78); ALBUMIN 2.9 G/DL (3.4-5.0); ALBUMIN/GLOBULIN RATIO 0.8 (1.1-1.5); ALKALINE PHOSPHATASE 57 IU/L (46-116); ANION GAP 10 (8-16); ASPARTATE AMINO TRANSFERASE 13 U/L (10-37); BILIRUBIN,TOTAL 0.3 MG/DL (0.1-1.0); BLOOD UREA NITROGEN 62 MG/DL (7-18); BUN/CREATININE RATIO 51.7 (6.6-38.0); CALCIUM 8.7 MG/DL (8.5-10.1); CHLORIDE 118 MMOL/L (99-107); GLUCOSE 172 MG/DL (70-104); MAGNESIUM 1.6 MG/DL (1.5-2.4); POTASSIUM 3.5 MMOL/L (3.5-5.1); TOTAL CARBON DIOXIDE 28.5 MMOL/L (24-32); TOTAL PROTEIN 6.4 G/DL (6.4-8.2); eGFR 46 ML/MIN
[2017-09-06 01:38] LABS: SODIUM 156 MMOL/L (135-145)
[2017-09-06 02:05] LABS: BASOPHILS % (AUTO) 0 % (0-1); EOSINOPHILS # (AUTO) 0.1 X10'3 (0-0.9); EOSINOPHILS % (AUTO) 1.1 % (0-6); HEMATOCRIT 31.3 % (35.0-45.0); HEMOGLOBIN 10.4 g/dl (12.0-16.0); LYMPHOCYTES # (AUTO) 0.6 X10'3 (1.1-4.8); LYMPHOCYTES % (AUTO) 6.2 % (21-51); MEAN CORPUSCULAR HEMOGLOBIN 30.6 PG (27.0-31.0); MEAN CORPUSCULAR HGB CONC 33.3 % (33.0-36.5); MEAN CORPUSCULAR VOLUME 91.8 FL (78-98); MEAN PLATELET VOLUME 8.4 FL (7.4-10.4); MONOCYTES # (AUTO) 0.6 X10'3 (0-0.9); MONOCYTES % (AUTO) 6.3 % (2-12); NEUTROPHILS # (AUTO) 8.5 X10'3 (1.8-7.7); NEUTROPHILS % (AUTO) 86.4 % (42-75); PLATELET COUNT 198 X10'3 (140-440); RED BLOOD COUNT 3.41 X10'6 (4.20-5.60); RED CELL DISTRIBUTION WIDTH 15.1 % (11.5-14.5); WHITE BLOOD COUNT 9.8 X10'3 (4.5-11.0)
[2017-09-06] MEDS: methylPREDNISolone sod succ/PF 40mg inj. IV SCH ×4 (02:22→19:46)
[2017-09-06] MEDS: mineral oil/petrolatum ophthal oint EACHEYE SCH ×4 (02:23→19:49)
[2017-09-06 02:34] LABS: VANCOMYCIN,TROUGH 18.5 UG/ML (6.0-14.0)
[2017-09-06 02:50] LABS: ABG BASE EXCESS 1.8 mmol/L (-2.0-3.0); ABG HCO3 26.1 mmol/L (22.0-26.0); ABG OXYGEN SATURATION 91.8 % (95-98); ABG PCO2 (T) 41.2 mmHg (32.0-45.0); ABG PH (T) 7.423 (7.350-7.450); FCOHb 0.3 % (0.5-1.5); FMetHb 0.3 % (0.3-1.12); FO2Hb 91.2 % (94-100); PATIENT TEMPERATURE 37.9; PEEP 5 cm H2O; RESPIRATORY RATE 16 b/min; RESPIRATORY RATE (OBSERVED) 18 b/min; TIDAL VOLUME 400 mL; TOTAL HEMOGLOBIN 11.2 G/dl (12.0-16.0)
[2017-09-06] MEDS: ipratropium/albuterol 3ml nebule NEB SCH ×6 (02:50→23:27)
[2017-09-06] MEDS ORDERED: VANCOMYCIN LEVEL IV NR (03:30)
[2017-09-06] MEDS ORDERED: insulin R INFUSION 1 ML IV ONE (04:06)
[2017-09-06] MEDS: FENTANYL-0.9 % NACL/PF 100 ML IV PRN ×2 (05:15→13:35)
[2017-09-06] MEDS: pantoprazole 40 MG vial IV SCH (07:52)
[2017-09-06] MEDS: furosemide 40mg/4ml inj IV SCH ×2 (07:52→19:46)
[2017-09-06] MEDS: clotrimazole topical cream 15gm tube TP SCH (07:52)
[2017-09-06] MEDS: docusate sodium 100mg/10ml UD cup PO SCH (07:52)
[2017-09-06] MEDS: lactobacillus rhamnosus 10,000 MMU CELLS/CAPSULE PO SCH ×2 (07:53→17:13)
[2017-09-06] MEDS: citalopram 20mg tablet PO SCH (07:53)
[2017-09-06] MEDS: gabapentin 300mg capsule PO SCH ×2 (07:54→19:46)
[2017-09-06] MEDS: amLODIPine 5mg tablet PO SCH (07:54)
[2017-09-06] MEDS: metoprolol tartrate 50mg tablet PO SCH ×2 (07:54→19:46)
[2017-09-06] MEDS: montelukast 10mg tablet PO SCH (07:54)
[2017-09-06] MEDS: levoTHYROXINE 112mcg tablet PO SCH (07:54)
[2017-09-06] MEDS: lisinopril 20mg tablet PO SCH (07:54)
[2017-09-06] MEDS: fluticasone/vilanterol 200mcg/25mcg inhaler IH SCH (08:00)
[2017-09-06] MEDS: prednisoLONE acetate 1% ophth susp 5ml LEFTEYE SCH ×2 (08:01→19:48)
[2017-09-06] MEDS: fluticasone nasal spray 16GM bottle NS SCH (08:01)
[2017-09-06] MEDS: DORZOLAMIDE EACHEYE SCH ×2 (08:03→19:48)
[2017-09-06] MEDS: midazolam 100mg in NS 100ml 100 ML IV PRN ×2 (09:10→21:49)
[2017-09-06] MEDS ORDERED: dextrose 5%-water 1,000 ML IV SCH (10:40)
[2017-09-06] MEDS: Potassium Cl inj 40 MEQ in dextrose 5%-water 1,000 ML IV SCH ×2 (11:30→19:44)
[2017-09-06] MEDS: latanoprost 0.005% 2.5ml ophthalmic drops EACHEYE SCH (20:55)
[2017-09-06] MEDS: insulin glargine (Lantus) pen - multi-dose SQ SCH (20:58)
[2017-09-07] VITALS (24 sets, daily range): BP systolic 130–183; BP diastolic 48–73
[2017-09-07] MEDS: insulin regular, DKA only 100 UNIT in normal saline 100ml IV soln 99 ML IV SCH ×14 (01:09→23:58)
[2017-09-07] MEDS: methylPREDNISolone sod succ/PF 40mg inj. IV SCH (02:03)
[2017-09-07] MEDS: mineral oil/petrolatum ophthal oint EACHEYE SCH ×4 (02:03→20:06)
[2017-09-07 02:31] LABS: ABG BASE EXCESS 3.4 mmol/L (-2.0-3.0); ABG PCO2 (T) 33.1 mmHg (32.0-45.0); ABG PH (T) 7.515 (7.350-7.450); ABG PO2 (T) 74.8 mmHg (83-108); FCOHb 0.2 % (0.5-1.5); FMetHb 0.3 % (0.3-1.12); FO2Hb 94.5 % (94-100); MINUTE VOLUME 9 L/min; PATIENT TEMPERATURE 37.4; PEEP 8 cm H2O; RESPIRATORY RATE 16 b/min; RESPIRATORY RATE (OBSERVED) 16 b/min; TIDAL VOLUME 550 mL; TOTAL HEMOGLOBIN 11.1 G/dl (12.0-16.0)
[2017-09-07] MEDS: ipratropium/albuterol 3ml nebule NEB SCH ×6 (03:19→23:26)
[2017-09-07 03:25] LABS: BASOPHILS % (AUTO) 0.1 % (0-1); EOSINOPHILS # (AUTO) 0.1 X10'3 (0-0.9); EOSINOPHILS % (AUTO) 1.1 % (0-6); HEMATOCRIT 32.8 % (35.0-45.0); HEMOGLOBIN 10.8 g/dl (12.0-16.0); LYMPHOCYTES # (AUTO) 1.3 X10'3 (1.1-4.8); LYMPHOCYTES % (AUTO) 10.4 % (21-51); MEAN CORPUSCULAR HEMOGLOBIN 30.1 PG (27.0-31.0); MEAN CORPUSCULAR VOLUME 91.1 FL (78-98); MEAN PLATELET VOLUME 7.9 FL (7.4-10.4); MONOCYTES # (AUTO) 1.4 X10'3 (0-0.9); MONOCYTES % (AUTO) 11.3 % (2-12); NEUTROPHILS # (AUTO) 9.4 X10'3 (1.8-7.7); NEUTROPHILS % (AUTO) 77.1 % (42-75); PLATELET COUNT 201 X10'3 (140-440); RED CELL DISTRIBUTION WIDTH 14.8 % (11.5-14.5); WHITE BLOOD COUNT 12.2 X10'3 (4.5-11.0)
[2017-09-07 03:41] LABS: ALANINE AMINOTRANSFERASE 23 U/L (12-78); ALBUMIN 2.8 G/DL (3.4-5.0); ALBUMIN/GLOBULIN RATIO 0.8 (1.1-1.5); ALKALINE PHOSPHATASE 55 IU/L (46-116); ANION GAP 8 (8-16); ASPARTATE AMINO TRANSFERASE 13 U/L (10-37); BILIRUBIN,TOTAL 0.3 MG/DL (0.1-1.0); BLOOD UREA NITROGEN 59 MG/DL (7-18); BUN/CREATININE RATIO 53.6 (6.6-38.0); CALCIUM 8.7 MG/DL (8.5-10.1); CHLORIDE 110 MMOL/L (99-107); GLUCOSE 145 MG/DL (70-104); MAGNESIUM 1.7 MG/DL (1.5-2.4); POTASSIUM 4.1 MMOL/L (3.5-5.1); SODIUM 145 MMOL/L (135-145); TOTAL CARBON DIOXIDE 26.7 MMOL/L (24-32); TOTAL PROTEIN 6.1 G/DL (6.4-8.2); eGFR 50 ML/MIN
[2017-09-07] MEDS ORDERED: insulin R INFUSION 1 ML IV ONE (03:45)
[2017-09-07 04:01] LABS: PARTIAL THROMBOPLASTIN TIME 22 SECONDS (22-32); PROTHROMBIN TIME 10.1 SECONDS (9.0-12.0)
[2017-09-07] MEDS: Potassium Cl inj 40 MEQ in dextrose 5%-water 1,000 ML IV SCH ×2 (04:09→11:06)
[2017-09-07] MEDS: DORZOLAMIDE EACHEYE SCH ×2 (08:00→20:08)
[2017-09-07] MEDS: fluticasone/vilanterol 200mcg/25mcg inhaler IH SCH (08:00)
[2017-09-07] MEDS ORDERED: labetalol 20mg/4ml (5mg/ml) syringe IV PRN (09:00)
[2017-09-07] MEDS: levoTHYROXINE 112mcg tablet PO SCH (09:17)
[2017-09-07] MEDS: gabapentin 300mg capsule PO SCH ×2 (09:17→20:06)
[2017-09-07] MEDS: amLODIPine 5mg tablet PO SCH (09:17)
[2017-09-07] MEDS: citalopram 20mg tablet PO SCH (09:17)
[2017-09-07] MEDS: lactobacillus rhamnosus 10,000 MMU CELLS/CAPSULE PO SCH ×2 (09:17→17:38)
[2017-09-07] MEDS: lisinopril 20mg tablet PO SCH (09:17)
[2017-09-07] MEDS: montelukast 10mg tablet PO SCH (09:18)
[2017-09-07] MEDS: furosemide 40mg/4ml inj IV SCH ×2 (09:18→20:06)
[2017-09-07] MEDS: docusate sodium 100mg/10ml UD cup PO SCH (09:18)
[2017-09-07] MEDS: pantoprazole 40 MG vial IV SCH (09:18)
[2017-09-07] MEDS: clotrimazole topical cream 15gm tube TP SCH (09:18)
[2017-09-07] MEDS: QUEtiapine 25mg tablet PEG SCH ×2 (09:36→20:06)
[2017-09-07] MEDS: prednisoLONE acetate 1% ophth susp 5ml LEFTEYE SCH ×2 (09:40→20:07)
[2017-09-07] MEDS: fluticasone nasal spray 16GM bottle NS SCH (09:40)
[2017-09-07] MEDS: FENTANYL-0.9 % NACL/PF 100 ML IV PRN (09:50)
[2017-09-07] MEDS: midazolam 100mg in NS 100ml 100 ML IV PRN (14:09)
[2017-09-07] MEDS: latanoprost 0.005% 2.5ml ophthalmic drops EACHEYE SCH (20:24)
[2017-09-07] MEDS: insulin glargine (Lantus) pen - multi-dose SQ SCH (20:24)
[2017-09-08] VITALS (24 sets, daily range): BP systolic 104–166; BP diastolic 43–69
[2017-09-08] MEDS: mineral oil/petrolatum ophthal oint EACHEYE SCH ×4 (02:28→20:10)
[2017-09-08] MEDS: ipratropium/albuterol 3ml nebule NEB SCH ×5 (03:00→20:42)
[2017-09-08] MEDS: insulin regular, DKA only 100 UNIT in normal saline 100ml IV soln 99 ML IV SCH ×14 (03:53→23:09)
[2017-09-08 04:17] LABS: BASOPHILS % (AUTO) 0.1 % (0-1); EOSINOPHILS # (AUTO) 0.2 X10'3 (0-0.9); EOSINOPHILS % (AUTO) 1.6 % (0-6); HEMATOCRIT 32.8 % (35.0-45.0); HEMOGLOBIN 10.9 g/dl (12.0-16.0); LYMPHOCYTES # (AUTO) 2.8 X10'3 (1.1-4.8); LYMPHOCYTES % (AUTO) 20.9 % (21-51); MEAN CORPUSCULAR HEMOGLOBIN 30.5 PG (27.0-31.0); MEAN CORPUSCULAR HGB CONC 33.3 % (33.0-36.5); MEAN CORPUSCULAR VOLUME 91.3 FL (78-98); MONOCYTES # (AUTO) 1.2 X10'3 (0-0.9); MONOCYTES % (AUTO) 9.2 % (2-12); NEUTROPHILS # (AUTO) 9.1 X10'3 (1.8-7.7); NEUTROPHILS % (AUTO) 68.2 % (42-75); PLATELET COUNT 192 X10'3 (140-440); RED BLOOD COUNT 3.59 X10'6 (4.20-5.60); RED CELL DISTRIBUTION WIDTH 14.7 % (11.5-14.5); WHITE BLOOD COUNT 13.3 X10'3 (4.5-11.0)
[2017-09-08 04:25] LABS: INR 0.9 INR; PARTIAL THROMBOPLASTIN TIME 21 SECONDS (22-32); PROTHROMBIN TIME 9.8 SECONDS (9.0-12.0)
[2017-09-08 04:28] LABS: ALANINE AMINOTRANSFERASE 23 U/L (12-78); ALBUMIN 2.5 G/DL (3.4-5.0); ALBUMIN/GLOBULIN RATIO 0.9 (1.1-1.5); ALKALINE PHOSPHATASE 51 IU/L (46-116); ANION GAP 8 (8-16); ASPARTATE AMINO TRANSFERASE 12 U/L (10-37); BILIRUBIN,TOTAL 0.3 MG/DL (0.1-1.0); BLOOD UREA NITROGEN 78 MG/DL (7-18); CALCIUM 8.6 MG/DL (8.5-10.1); CHLORIDE 106 MMOL/L (99-107); GLUCOSE 152 MG/DL (70-104); MAGNESIUM 1.9 MG/DL (1.5-2.4); POTASSIUM 3.7 MMOL/L (3.5-5.1); SODIUM 142 MMOL/L (135-145); TOTAL CARBON DIOXIDE 28.2 MMOL/L (24-32); TOTAL PROTEIN 5.4 G/DL (6.4-8.2); eGFR 56 ML/MIN
[2017-09-08 04:45] LABS: PREALBUMIN 41.4 MG/DL (19-36)
[2017-09-08] MEDS: FENTANYL-0.9 % NACL/PF 100 ML IV PRN ×2 (04:59→11:44)
[2017-09-08 05:11] LABS: ABG BASE EXCESS 3.1 mmol/L (-2.0-3.0); ABG HCO3 27.1 mmol/L (22.0-26.0); ABG OXYGEN SATURATION 95.3 % (95-98); ABG PCO2 (T) 39.8 mmHg (32.0-45.0); ABG PH (T) 7.452 (7.350-7.450); ABG PO2 (T) 76.7 mmHg (83-108); FCOHb 0.3 % (0.5-1.5); FMetHb 0.3 % (0.3-1.12); FO2Hb 94.7 % (94-100); MINUTE VOLUME 8 L/min; PATIENT TEMPERATURE 37.2; PEEP 8 cm H2O; RESPIRATORY RATE 14 b/min; RESPIRATORY RATE (OBSERVED) 14 b/min; TIDAL VOLUME 550 mL; TOTAL HEMOGLOBIN 11.9 G/dl (12.0-16.0)
[2017-09-08] MEDS: fluticasone/vilanterol 200mcg/25mcg inhaler IH SCH (08:00)
[2017-09-08] MEDS: citalopram 20mg tablet PO SCH (08:05)
[2017-09-08] MEDS: lisinopril 20mg tablet PO SCH (08:05)
[2017-09-08] MEDS: levoTHYROXINE 112mcg tablet PO SCH (08:05)
[2017-09-08] MEDS: montelukast 10mg tablet PO SCH (08:05)
[2017-09-08] MEDS: pantoprazole 40 MG vial IV SCH (08:05)
[2017-09-08] MEDS: QUEtiapine 25mg tablet PEG SCH (08:06)
[2017-09-08] MEDS: clotrimazole topical cream 15gm tube TP SCH (08:06)
[2017-09-08] MEDS: lactobacillus rhamnosus 10,000 MMU CELLS/CAPSULE PO SCH ×2 (08:06→17:16)
[2017-09-08] MEDS: furosemide 40mg/4ml inj IV SCH ×2 (08:06→20:10)
[2017-09-08] MEDS: gabapentin 300mg capsule PO SCH ×2 (08:06→20:09)
[2017-09-08] MEDS: amLODIPine 5mg tablet PO SCH (08:06)
[2017-09-08] MEDS: docusate sodium 100mg/10ml UD cup PO SCH (08:06)
[2017-09-08] MEDS: prednisoLONE acetate 1% ophth susp 5ml LEFTEYE SCH ×2 (08:07→20:11)
[2017-09-08] MEDS: fluticasone nasal spray 16GM bottle NS SCH (08:07)
[2017-09-08] MEDS: DORZOLAMIDE EACHEYE SCH ×2 (08:08→20:35)
[2017-09-08] MEDS ORDERED: QUEtiapine 25mg tablet PEG SCH (20:00)
[2017-09-08] MEDS: insulin glargine (Lantus) pen - multi-dose SQ SCH (21:00)
[2017-09-08] MEDS: latanoprost 0.005% 2.5ml ophthalmic drops EACHEYE SCH (21:00)
[2017-09-09] VITALS (24 sets, daily range): BP systolic 90–176; BP diastolic 31–60
[2017-09-09] MEDS: ipratropium/albuterol 3ml nebule NEB SCH ×7 (00:03→21:11)
[2017-09-09] MEDS: insulin regular, DKA only 100 UNIT in normal saline 100ml IV soln 99 ML IV SCH ×6 (00:05→05:21)
[2017-09-09] MEDS: mineral oil/petrolatum ophthal oint EACHEYE SCH ×5 (02:00→20:37)
[2017-09-09 04:06] LABS: ABG BASE EXCESS 0.3 mmol/L (-2.0-3.0); ABG HCO3 25.1 mmol/L (22.0-26.0); ABG OXYGEN SATURATION 95.3 % (95-98); ABG PCO2 (T) 38.5 mmHg (32.0-45.0); ABG PH (T) 7.426 (7.350-7.450); ABG PO2 (T) 71.5 mmHg (83-108); FCOHb 0.3 % (0.5-1.5); FMetHb 0.3 % (0.3-1.12); FO2Hb 94.7 % (94-100); MINUTE VOLUME 8 L/min; PATIENT TEMPERATURE 35.6; PEEP 5 cm H2O; RESPIRATORY RATE (OBSERVED) 18 b/min; TIDAL VOLUME 430 mL; TOTAL HEMOGLOBIN 11.8 G/dl (12.0-16.0)
[2017-09-09 05:27] LABS: BASOPHILS % (AUTO) 0.1 % (0-1); EOSINOPHILS # (AUTO) 0.4 X10'3 (0-0.9); EOSINOPHILS % (AUTO) 3.5 % (0-6); HEMATOCRIT 32.6 % (35.0-45.0); HEMOGLOBIN 11.2 g/dl (12.0-16.0); LYMPHOCYTES # (AUTO) 2.3 X10'3 (1.1-4.8); LYMPHOCYTES % (AUTO) 18.1 % (21-51); MEAN CORPUSCULAR HGB CONC 34.3 % (33.0-36.5); MEAN CORPUSCULAR VOLUME 90.4 FL (78-98); MEAN PLATELET VOLUME 8.1 FL (7.4-10.4); MONOCYTES % (AUTO) 7.9 % (2-12); NEUTROPHILS # (AUTO) 8.8 X10'3 (1.8-7.7); NEUTROPHILS % (AUTO) 70.4 % (42-75); PLATELET COUNT 189 X10'3 (140-440); RED BLOOD COUNT 3.61 X10'6 (4.20-5.60); RED CELL DISTRIBUTION WIDTH 14.3 % (11.5-14.5); WHITE BLOOD COUNT 12.6 X10'3 (4.5-11.0)
[2017-09-09 05:28] LABS: PARTIAL THROMBOPLASTIN TIME 24 SECONDS (22-32); PROTHROMBIN TIME 9.9 SECONDS (9.0-12.0)
[2017-09-09 05:52] LABS: ALANINE AMINOTRANSFERASE 24 U/L (12-78); ALBUMIN 2.5 G/DL (3.4-5.0); ALBUMIN/GLOBULIN RATIO 0.8 (1.1-1.5); ALKALINE PHOSPHATASE 58 IU/L (46-116); ANION GAP 11 (8-16); ASPARTATE AMINO TRANSFERASE 13 U/L (10-37); BILIRUBIN,TOTAL 0.3 MG/DL (0.1-1.0); BLOOD UREA NITROGEN 101 MG/DL (7-18); BUN/CREATININE RATIO 77.7 (6.6-38.0); CALCIUM 8.4 MG/DL (8.5-10.1); CHLORIDE 105 MMOL/L (99-107); GLUCOSE 159 MG/DL (70-104); MAGNESIUM 2.1 MG/DL (1.5-2.4); POTASSIUM 3.4 MMOL/L (3.5-5.1); SODIUM 140 MMOL/L (135-145); TOTAL CARBON DIOXIDE 24.4 MMOL/L (24-32); TOTAL PROTEIN 5.5 G/DL (6.4-8.2); eGFR 42 ML/MIN
[2017-09-09] MEDS: fluticasone/vilanterol 200mcg/25mcg inhaler IH SCH (08:00)
[2017-09-09] MEDS: DORZOLAMIDE EACHEYE SCH ×2 (08:00→19:34)
[2017-09-09] MEDS: pantoprazole 40 MG vial IV SCH (08:50)
[2017-09-09] MEDS: furosemide 40mg/4ml inj IV SCH ×2 (08:50→19:53)
[2017-09-09] MEDS: prednisoLONE acetate 1% ophth susp 5ml LEFTEYE SCH ×2 (08:51→19:34)
[2017-09-09] MEDS: docusate sodium 100mg/10ml UD cup PO SCH (08:52)
[2017-09-09] MEDS: citalopram 20mg tablet PO SCH (08:52)
[2017-09-09] MEDS: fluticasone nasal spray 16GM bottle NS SCH (08:52)
[2017-09-09] MEDS: montelukast 10mg tablet PO SCH (08:53)
[2017-09-09] MEDS: levoTHYROXINE 112mcg tablet PO SCH (08:53)
[2017-09-09] MEDS: gabapentin 300mg capsule PO SCH ×2 (08:53→19:35)
[2017-09-09] MEDS: amLODIPine 5mg tablet PO SCH (08:53)
[2017-09-09] MEDS: clotrimazole topical cream 15gm tube TP SCH (08:54)
[2017-09-09] MEDS: lisinopril 20mg tablet PO SCH (08:54)
[2017-09-09] MEDS: lactobacillus rhamnosus 10,000 MMU CELLS/CAPSULE PO SCH ×2 (09:00→16:38)
[2017-09-09] MEDS ORDERED: naloxone 0.4 mg/ml inj IV PRN (11:15)
[2017-09-09] MEDS ORDERED: ipratropium/albuterol 3ml nebule NEB PRN (11:15)
[2017-09-09] MEDS ORDERED: CADD PCA waste documentation MC PRN (11:15)
[2017-09-09] MEDS ORDERED: racepinephrine 11.25mg/0.5ml nebule NEB PRN (11:15)
[2017-09-09] MEDS ORDERED: MESSAGE TO PHARMACY PO ONE (11:45)
[2017-09-09] MEDS ORDERED: dextrose 50%-water 50ml dispensing syringe IV PRN ×2 (11:45)
[2017-09-09] MEDS ORDERED: dextrose ORAL solution 15 GM/59 ML bottle PO PRN ×2 (11:45)
[2017-09-09] MEDS ORDERED: glucagon, human recombinant 1mg kit SUBCUT PRN (11:45)
[2017-09-09] MEDS: HYDROmorphone/NS 1 mg/ml CADD 50 ML IV SCH ×6 (13:00→23:00)
[2017-09-09] MEDS: insulin Lispro (HumaLOG) vial - multi-dose SQ SCH ×2 (14:32→19:50)
[2017-09-09] MEDS: latanoprost 0.005% 2.5ml ophthalmic drops EACHEYE SCH (19:41)
[2017-09-09] MEDS: insulin glargine (Lantus) pen - multi-dose SQ SCH (20:32)
[2017-09-09] MEDS ORDERED: insulin glargine (Lantus) pen - multi-dose SQ SCH (21:00)
[2017-09-10] VITALS (21 sets, daily range): BP systolic 94–177; BP diastolic 35–68
[2017-09-10] MEDS: HYDROmorphone/NS 1 mg/ml CADD 50 ML IV SCH ×12 (01:00→23:00)
[2017-09-10] MEDS: insulin Lispro (HumaLOG) vial - multi-dose SQ SCH ×3 (03:53→20:06)
[2017-09-10] MEDS: ipratropium/albuterol 3ml nebule NEB SCH ×4 (03:54→20:32)
[2017-09-10 04:07] LABS: BASOPHILS % (AUTO) 0.1 % (0-1); EOSINOPHILS # (AUTO) 0.4 X10'3 (0-0.9); HEMATOCRIT 32.2 % (35.0-45.0); HEMOGLOBIN 10.8 g/dl (12.0-16.0); INR 0.9 INR; LYMPHOCYTES # (AUTO) 1.4 X10'3 (1.1-4.8); LYMPHOCYTES % (AUTO) 11.1 % (21-51); MEAN CORPUSCULAR HEMOGLOBIN 30.7 PG (27.0-31.0); MEAN CORPUSCULAR HGB CONC 33.6 % (33.0-36.5); MEAN CORPUSCULAR VOLUME 91.2 FL (78-98); MEAN PLATELET VOLUME 8.2 FL (7.4-10.4); MONOCYTES # (AUTO) 0.7 X10'3 (0-0.9); MONOCYTES % (AUTO) 5.6 % (2-12); NEUTROPHILS # (AUTO) 10.2 X10'3 (1.8-7.7); NEUTROPHILS % (AUTO) 80.2 % (42-75); PARTIAL THROMBOPLASTIN TIME 25 SECONDS (22-32); PLATELET COUNT 174 X10'3 (140-440); PROTHROMBIN TIME 9.8 SECONDS (9.0-12.0); RED BLOOD COUNT 3.54 X10'6 (4.20-5.60); RED CELL DISTRIBUTION WIDTH 14.6 % (11.5-14.5); WHITE BLOOD COUNT 12.7 X10'3 (4.5-11.0)
[2017-09-10 04:10] LABS: ALANINE AMINOTRANSFERASE 22 U/L (12-78); ALBUMIN 2.6 G/DL (3.4-5.0); ALBUMIN/GLOBULIN RATIO 0.8 (1.1-1.5); ALKALINE PHOSPHATASE 56 IU/L (46-116); ANION GAP 8 (8-16); ASPARTATE AMINO TRANSFERASE 10 U/L (10-37); BILIRUBIN,TOTAL 0.3 MG/DL (0.1-1.0); BLOOD UREA NITROGEN 93 MG/DL (7-18); BUN/CREATININE RATIO 77.5 (6.6-38.0); CALCIUM 8.7 MG/DL (8.5-10.1); CHLORIDE 108 MMOL/L (99-107); GLUCOSE 181 MG/DL (70-104); MAGNESIUM 2.4 MG/DL (1.5-2.4); SODIUM 143 MMOL/L (135-145); TOTAL CARBON DIOXIDE 27.3 MMOL/L (24-32); TOTAL PROTEIN 5.7 G/DL (6.4-8.2); eGFR 46 ML/MIN
[2017-09-10] MEDS: amLODIPine 5mg tablet PO SCH ×2 (08:00→09:17)
[2017-09-10] MEDS: mineral oil/petrolatum ophthal oint EACHEYE SCH (08:00)
[2017-09-10] MEDS: fluticasone nasal spray 16GM bottle NS SCH ×2 (08:00→09:20)
[2017-09-10] MEDS: docusate sodium 100mg/10ml UD cup PO SCH (08:00)
[2017-09-10] MEDS: citalopram 20mg tablet PO SCH ×3 (08:00→20:18)
[2017-09-10] MEDS: prednisoLONE acetate 1% ophth susp 5ml LEFTEYE SCH ×2 (09:08→20:07)
[2017-09-10] MEDS: DORZOLAMIDE EACHEYE SCH ×2 (09:13→20:07)
[2017-09-10] MEDS: lisinopril 20mg tablet PO SCH (09:16)
[2017-09-10] MEDS: montelukast 10mg tablet PO SCH (09:16)
[2017-09-10] MEDS: levoTHYROXINE 112mcg tablet PO SCH (09:16)
[2017-09-10] MEDS: gabapentin 300mg capsule PO SCH ×2 (09:17→20:07)
[2017-09-10] MEDS: clotrimazole topical cream 15gm tube TP SCH (09:20)
[2017-09-10] MEDS: lactobacillus rhamnosus 10,000 MMU CELLS/CAPSULE PO SCH ×2 (09:24→17:30)
[2017-09-10] MEDS: fluticasone/vilanterol 200mcg/25mcg inhaler IH SCH (10:46)
[2017-09-10] MEDS: latanoprost 0.005% 2.5ml ophthalmic drops EACHEYE SCH (20:18)
[2017-09-10] MEDS ORDERED: brimonidine 0.2% 5 ML ophthalmic drops RIGHTEYE SCH (22:00)
[2017-09-10] MEDS: insulin glargine (Lantus) pen - multi-dose SQ SCH (22:22)
[2017-09-10] MEDS ORDERED: OPTH RIGHTEYE ONE (22:25)
[2017-09-10] MEDS ORDERED: BRIMONIDINE 0.1% RIGHTEYE ONE (22:25)
[2017-09-11] MEDS: HYDROmorphone/NS 1 mg/ml CADD 50 ML IV SCH ×7 (01:00→13:00)
[2017-09-11] MEDS: ipratropium/albuterol 3ml nebule NEB SCH ×4 (02:58→21:11)
[2017-09-11 06:01] LABS: BASOPHILS % (AUTO) 0.4 % (0-1); EOSINOPHILS # (AUTO) 0.3 X10'3 (0-0.9); EOSINOPHILS % (AUTO) 3.2 % (0-6); HEMATOCRIT 31.1 % (35.0-45.0); HEMOGLOBIN 10.6 g/dl (12.0-16.0); LYMPHOCYTES # (AUTO) 1.3 X10'3 (1.1-4.8); LYMPHOCYTES % (AUTO) 12.8 % (21-51); MEAN CORPUSCULAR HEMOGLOBIN 30.7 PG (27.0-31.0); MEAN CORPUSCULAR HGB CONC 34.2 % (33.0-36.5); MEAN CORPUSCULAR VOLUME 89.8 FL (78-98); MEAN PLATELET VOLUME 7.9 FL (7.4-10.4); MONOCYTES # (AUTO) 0.6 X10'3 (0-0.9); MONOCYTES % (AUTO) 5.5 % (2-12); NEUTROPHILS # (AUTO) 8.1 X10'3 (1.8-7.7); NEUTROPHILS % (AUTO) 78.1 % (42-75); PLATELET COUNT 170 X10'3 (140-440); RED BLOOD COUNT 3.46 X10'6 (4.20-5.60); RED CELL DISTRIBUTION WIDTH 15.1 % (11.5-14.5); WHITE BLOOD COUNT 10.4 X10'3 (4.5-11.0)
[2017-09-11 06:27] LABS: INR 0.9 INR; PROTHROMBIN TIME 9.6 SECONDS (9.0-12.0)
[2017-09-11 06:32] LABS: ALANINE AMINOTRANSFERASE 25 U/L (12-78); ALBUMIN 2.7 G/DL (3.4-5.0); ALBUMIN/GLOBULIN RATIO 0.8 (1.1-1.5); ALKALINE PHOSPHATASE 61 IU/L (46-116); ANION GAP 8 (8-16); ASPARTATE AMINO TRANSFERASE 16 U/L (10-37); BILIRUBIN,TOTAL 0.3 MG/DL (0.1-1.0); BLOOD UREA NITROGEN 63 MG/DL (7-18); BUN/CREATININE RATIO 58.3 (6.6-38.0); CALCIUM 8.9 MG/DL (8.5-10.1); CHLORIDE 106 MMOL/L (99-107); CREATININE 1.08 MG/DL (0.40-0.90); GLUCOSE 166 MG/DL (70-104); MAGNESIUM 2.2 MG/DL (1.5-2.4); POTASSIUM 3.4 MMOL/L (3.5-5.1); PREALBUMIN 33.1 MG/DL (19-36); SODIUM 144 MMOL/L (135-145); TOTAL CARBON DIOXIDE 29.7 MMOL/L (24-32); eGFR 52 ML/MIN
[2017-09-11 08:00] VITALS: BP 113/157
[2017-09-11] MEDS: lisinopril 20mg tablet PO SCH (08:00)
[2017-09-11] MEDS: clotrimazole topical cream 15gm tube TP SCH ×2 (08:00→12:18)
[2017-09-11] MEDS: fluticasone/vilanterol 200mcg/25mcg inhaler IH SCH (08:00)
[2017-09-11] MEDS: fluticasone nasal spray 16GM bottle NS SCH (08:00)
[2017-09-11] MEDS: montelukast 10mg tablet PO SCH (08:08)
[2017-09-11] MEDS: levoTHYROXINE 112mcg tablet PO SCH (08:08)
[2017-09-11] MEDS: lactobacillus rhamnosus 10,000 MMU CELLS/CAPSULE PO SCH ×2 (08:09→20:41)
[2017-09-11] MEDS: amLODIPine 5mg tablet PO SCH (08:09)
[2017-09-11] MEDS: docusate sod 100mg capsule PO SCH (08:09)
[2017-09-11] MEDS: gabapentin 300mg capsule PO SCH ×2 (08:10→20:40)
[2017-09-11] MEDS: prednisoLONE acetate 1% ophth susp 5ml LEFTEYE SCH ×2 (08:13→20:45)
[2017-09-11] MEDS: DORZOLAMIDE EACHEYE SCH ×2 (08:14→20:47)
[2017-09-11] MEDS: OPTH RIGHTEYE SCH ×2 (08:15→20:47)
[2017-09-11] MEDS: BRIMONIDINE 0.1% RIGHTEYE SCH ×2 (08:15→20:47)
[2017-09-11] MEDS: insulin Lispro (HumaLOG) vial - multi-dose SQ SCH ×3 (09:14→19:14)
[2017-09-11 11:00] VITALS: BP 114/56
[2017-09-11] MEDS ORDERED: Melatonin 3mg tablet PO PRN (16:45)
[2017-09-11 19:00] VITALS: BP 146/66
[2017-09-11] MEDS: citalopram 20mg tablet PO SCH (20:39)
[2017-09-11] MEDS: latanoprost 0.005% 2.5ml ophthalmic drops EACHEYE SCH (20:47)
[2017-09-11] MEDS: insulin glargine (Lantus) pen - multi-dose SQ SCH (21:02)
[2017-09-12] VITALS: BP 142/74
[2017-09-12] MEDS: ipratropium/albuterol 3ml nebule NEB SCH ×4 (02:49→20:47)
[2017-09-12 05:58] LABS: BASOPHILS % (AUTO) 0.2 % (0-1); EOSINOPHILS # (AUTO) 0.3 X10'3 (0-0.9); EOSINOPHILS % (AUTO) 3.7 % (0-6); HEMATOCRIT 28.7 % (35.0-45.0); HEMOGLOBIN 9.9 g/dl (12.0-16.0); LYMPHOCYTES # (AUTO) 1.3 X10'3 (1.1-4.8); MEAN CORPUSCULAR HEMOGLOBIN 31.2 PG (27.0-31.0); MEAN CORPUSCULAR HGB CONC 34.6 % (33.0-36.5); MEAN CORPUSCULAR VOLUME 90.2 FL (78-98); MEAN PLATELET VOLUME 8.1 FL (7.4-10.4); MONOCYTES # (AUTO) 0.7 X10'3 (0-0.9); MONOCYTES % (AUTO) 7.5 % (2-12); NEUTROPHILS # (AUTO) 6.4 X10'3 (1.8-7.7); NEUTROPHILS % (AUTO) 73.6 % (42-75); PLATELET COUNT 175 X10'3 (140-440); RED BLOOD COUNT 3.18 X10'6 (4.20-5.60); RED CELL DISTRIBUTION WIDTH 14.8 % (11.5-14.5); WHITE BLOOD COUNT 8.6 X10'3 (4.5-11.0)
[2017-09-12 06:08] LABS: INR 0.9 INR; PROTHROMBIN TIME 9.7 SECONDS (9.0-12.0)
[2017-09-12 06:32] LABS: ALANINE AMINOTRANSFERASE 25 U/L (12-78); ALBUMIN 2.7 G/DL (3.4-5.0); ALBUMIN/GLOBULIN RATIO 0.9 (1.1-1.5); ALKALINE PHOSPHATASE 59 IU/L (46-116); ANION GAP 10 (8-16); ASPARTATE AMINO TRANSFERASE 15 U/L (10-37); BILIRUBIN,TOTAL 0.3 MG/DL (0.1-1.0); BLOOD UREA NITROGEN 40 MG/DL (7-18); BUN/CREATININE RATIO 38.1 (6.6-38.0); CALCIUM 8.8 MG/DL (8.5-10.1); CHLORIDE 107 MMOL/L (99-107); CREATININE 1.05 MG/DL (0.40-0.90); GLUCOSE 142 MG/DL (70-104); MAGNESIUM 1.9 MG/DL (1.5-2.4); POTASSIUM 3.6 MMOL/L (3.5-5.1); SODIUM 146 MMOL/L (135-145); TOTAL CARBON DIOXIDE 28.6 MMOL/L (24-32); TOTAL PROTEIN 5.8 G/DL (6.4-8.2); eGFR 53 ML/MIN
[2017-09-12 07:00] VITALS: BP 132/71
[2017-09-12] MEDS: fluticasone nasal spray 16GM bottle NS SCH (08:00)
[2017-09-12] MEDS: docusate sod 100mg capsule PO SCH (08:00)
[2017-09-12] MEDS: OPTH RIGHTEYE SCH ×2 (08:00→20:42)
[2017-09-12] MEDS: BRIMONIDINE 0.1% RIGHTEYE SCH ×2 (08:00→20:42)
[2017-09-12] MEDS: lisinopril 20mg tablet PO SCH (08:00)
[2017-09-12] MEDS: DORZOLAMIDE EACHEYE SCH ×2 (08:00→20:43)
[2017-09-12] MEDS: amLODIPine 5mg tablet PO SCH (08:00)
[2017-09-12] MEDS: fluticasone/vilanterol 200mcg/25mcg inhaler IH SCH (08:28)
[2017-09-12] MEDS: insulin Lispro (HumaLOG) vial - multi-dose SQ SCH ×3 (09:31→19:10)
[2017-09-12] MEDS: gabapentin 300mg capsule PO SCH ×2 (09:37→20:39)
[2017-09-12] MEDS: levoTHYROXINE 112mcg tablet PO SCH (09:37)
[2017-09-12] MEDS: montelukast 10mg tablet PO SCH (09:37)
[2017-09-12] MEDS: lactobacillus rhamnosus 10,000 MMU CELLS/CAPSULE PO SCH ×2 (09:38→17:47)
[2017-09-12] MEDS: prednisoLONE acetate 1% ophth susp 5ml LEFTEYE SCH ×2 (09:41→20:39)
[2017-09-12 11:00] VITALS: BP 140/66
[2017-09-12 19:00] VITALS: BP 154/71
[2017-09-12] MEDS: citalopram 20mg tablet PO SCH (20:39)
[2017-09-12] MEDS: latanoprost 0.005% 2.5ml ophthalmic drops EACHEYE SCH (20:43)
[2017-09-12] MEDS: insulin glargine (Lantus) pen - multi-dose SQ SCH (21:10)
[2017-09-13] VITALS: BP 108/52
[2017-09-13] MEDS: ipratropium/albuterol 3ml nebule NEB SCH ×2 (02:37→08:38)
[2017-09-13 05:21] LABS: BASOPHILS % (AUTO) 0.2 % (0-1); EOSINOPHILS # (AUTO) 0.3 X10'3 (0-0.9); EOSINOPHILS % (AUTO) 3.5 % (0-6); HEMATOCRIT 28.9 % (35.0-45.0); HEMOGLOBIN 9.9 g/dl (12.0-16.0); LYMPHOCYTES # (AUTO) 1.3 X10'3 (1.1-4.8); LYMPHOCYTES % (AUTO) 14.2 % (21-51); MEAN CORPUSCULAR HEMOGLOBIN 31.2 PG (27.0-31.0); MEAN CORPUSCULAR HGB CONC 34.3 % (33.0-36.5); MEAN CORPUSCULAR VOLUME 90.9 FL (78-98); MONOCYTES # (AUTO) 0.7 X10'3 (0-0.9); MONOCYTES % (AUTO) 7.5 % (2-12); NEUTROPHILS % (AUTO) 74.6 % (42-75); PLATELET COUNT 188 X10'3 (140-440); RED BLOOD COUNT 3.18 X10'6 (4.20-5.60); RED CELL DISTRIBUTION WIDTH 14.6 % (11.5-14.5); WHITE BLOOD COUNT 9.4 X10'3 (4.5-11.0)
[2017-09-13 05:44] LABS: ALANINE AMINOTRANSFERASE 32 U/L (12-78); ALBUMIN 2.9 G/DL (3.4-5.0); ALBUMIN/GLOBULIN RATIO 0.9 (1.1-1.5); ALKALINE PHOSPHATASE 58 IU/L (46-116); ANION GAP 12 (8-16); ASPARTATE AMINO TRANSFERASE 23 U/L (10-37); BILIRUBIN,TOTAL 0.3 MG/DL (0.1-1.0); BLOOD UREA NITROGEN 30 MG/DL (7-18); BUN/CREATININE RATIO 31.3 (6.6-38.0); CALCIUM 8.8 MG/DL (8.5-10.1); CHLORIDE 106 MMOL/L (99-107); CREATININE 0.96 MG/DL (0.40-0.90); GLUCOSE 142 MG/DL (70-104); MAGNESIUM 1.9 MG/DL (1.5-2.4); POTASSIUM 3.7 MMOL/L (3.5-5.1); SODIUM 143 MMOL/L (135-145); TOTAL CARBON DIOXIDE 24.7 MMOL/L (24-32); TOTAL PROTEIN 6.2 G/DL (6.4-8.2); eGFR 59 ML/MIN
[2017-09-13] MEDS: lactobacillus rhamnosus 10,000 MMU CELLS/CAPSULE PO SCH (07:20)
[2017-09-13] MEDS: levoTHYROXINE 112mcg tablet PO SCH (07:20)
[2017-09-13 08:00] VITALS: BP 126/65
[2017-09-13] MEDS: docusate sod 100mg capsule PO SCH (08:00)
[2017-09-13] MEDS: fluticasone nasal spray 16GM bottle NS SCH (08:00)
[2017-09-13] MEDS: OPTH RIGHTEYE SCH (08:00)
[2017-09-13] MEDS: amLODIPine 5mg tablet PO SCH (08:00)
[2017-09-13] MEDS: clotrimazole topical cream 15gm tube TP SCH (08:00)
[2017-09-13] MEDS: DORZOLAMIDE EACHEYE SCH (08:00)
[2017-09-13] MEDS: lisinopril 20mg tablet PO SCH (08:00)
[2017-09-13] MEDS: BRIMONIDINE 0.1% RIGHTEYE SCH (08:00)
[2017-09-13] MEDS: fluticasone/vilanterol 200mcg/25mcg inhaler IH SCH (08:42)
[2017-09-13] MEDS: insulin Lispro (HumaLOG) vial - multi-dose SQ SCH (09:06)
[2017-09-13] MEDS: prednisoLONE acetate 1% ophth susp 5ml LEFTEYE SCH (09:09)
[2017-09-13] MEDS: gabapentin 300mg capsule PO SCH (09:11)
[2017-09-13] MEDS: montelukast 10mg tablet PO SCH (09:13)
== END 2017-09-13 10:15 | disposition home health service (06) | DRG 981 ==
LOC: ER 16:47 → ED HOLD 21:56 → CICU 2S 22:25 → SUR 3N 09-10 19:29
PROVIDERS: ADMIT Internal Medicine Critical Care Medicine; ATTEND Internal Medicine Critical Care Medicine
PROC: 5A1955Z Respiratory Ventilation, Greater than 96 Consecutive Hours (ICD-10-PCS; 2017-08-31)
PROC: 0BH18EZ Insertion of Endotracheal Airway into Trachea, Via Natural or Artificial Opening Endoscopic (ICD-10-PCS; 2017-08-31)
PROC: B3251ZZ Computerized Tomography (CT Scan) of Bilateral Common Carotid Arteries using Low Osmolar Contrast (ICD-10-PCS; 2017-08-31)
PROC: B32G1ZZ Computerized Tomography (CT Scan) of Bilateral Vertebral Arteries using Low Osmolar Contrast (ICD-10-PCS; 2017-08-31)
PROC: B3201ZZ Computerized Tomography (CT Scan) of Thoracic Aorta using Low Osmolar Contrast (ICD-10-PCS; 2017-08-31)
PROC: B32S1ZZ Computerized Tomography (CT Scan) of Right Pulmonary Artery using Low Osmolar Contrast (ICD-10-PCS; 2017-08-31)
PROC: B32T1ZZ Computerized Tomography (CT Scan) of Left Pulmonary Artery using Low Osmolar Contrast (ICD-10-PCS; 2017-08-31)
PROC: B3281ZZ Computerized Tomography (CT Scan) of Bilateral Internal Carotid Arteries using Low Osmolar Contrast (ICD-10-PCS; 2017-08-31)
PROC: 30233K1 Transfusion of Nonautologous Frozen Plasma into Peripheral Vein, Percutaneous Approach (ICD-10-PCS; 2017-08-31)
PROC: 0W360ZZ Control Bleeding in Neck, Open Approach (ICD-10-PCS; principal; 2017-08-31 20:45)
PROC: BW2F1ZZ Computerized Tomography (CT Scan) of Neck using Low Osmolar Contrast (ICD-10-PCS; 2017-09-01)
PROC: 02HV33Z Insertion of Infusion Device into Superior Vena Cava, Percutaneous Approach (ICD-10-PCS; 2017-09-02)
PROC: 4A02X4A Measurement of Cardiac Electrical Activity, Guidance, External Approach (ICD-10-PCS; 2017-09-02)
DX: S10.93XA Contusion of unspecified part of neck, initial encounter (principal); J96.00 Acute respiratory failure, unspecified whether with hypoxia or hypercapnia; E03.9 Hypothyroidism, unspecified; E11.22 Type 2 diabetes mellitus with diabetic chronic kidney disease; E11.42 Type 2 diabetes mellitus with diabetic polyneuropathy; N18.3 Chronic kidney disease, stage 3 (moderate); G47.30 Sleep apnea, unspecified; H54.62 Unqualified visual loss, left eye, normal vision right eye; I25.10 Atherosclerotic heart disease of native coronary artery without angina pectoris; J44.9 Chronic obstructive pulmonary disease, unspecified; G89.29 Other chronic pain; Z90.49 Acquired absence of other specified parts of digestive tract; Z95.1 Presence of aortocoronary bypass graft; I25.2 Old myocardial infarction; Z88.8 Allergy status to other drugs, medicaments and biological substances; Z79.01 Long term (current) use of anticoagulants; Z79.51 Long term (current) use of inhaled steroids; Z79.82 Long term (current) use of aspirin; Z79.84 Long term (current) use of oral hypoglycemic drugs; Z79.899 Other long term (current) drug therapy; Z86.711 Personal history of pulmonary embolism; Z87.891 Personal history of nicotine dependence; W22.8XXA Striking against or struck by other objects, initial encounter; Y93.E5 Activity, floor mopping and cleaning; Y92.090 Kitchen in other non-institutional residence as the place of occurrence of the external cause; Y99.8 Other external cause status
CPT/HCPCS: 36415; 36569; 36600; 70491; 70498; 71045; 71046; 74018; 76937; 80048; 80053; 80202; 82803; 82948; 83036; 83735; 83880; 84132; 84134; 84443; 84484; 85018; 85025; 85027; 85610; 85730; 86885; 86900; 86901; 86920; 87040; 87070; 88304; 92616; 93005; 94002; 94003; 94640; 94667; 94760; 96365; 96375; 97116; 97162; 97530; 99291; A6212; A6213; A6222; A6257; A6258; A6402; A6449; A7000; A7015; C1758; C9113; J0330; J0360; J0690; J1644; J1815; J1940; J2250; J2543; J2704; J2920; J2930; J3010; J3370; J3430; J3480; J3490; J7030; J7070; J7120; P9047; P9059; Q9967

== ENCOUNTER 2017-10-31 11:35 | Emergency (ER) | payer MEDICARE, MEDICAID ==
[~2017-10-31] VITALS: Ht 157.5 cm; Wt 89.0 kg
[~2017-10-31 11:35] MED LIST changes: +DORZ10DR2; -GABA-338 PO; -[UNRECOGNIZED DRUG - CODE] OP; -etomidate 2mg/ml inj. ONE; -rocuronium 10mg/ml inj IV ONE
[2017-10-31] MEDS ORDERED: TAM75C PO (13:11)
[2017-10-31] MEDS ORDERED: AZIT-57 PO (13:11)
[2017-10-31] MEDS ORDERED: PRED10TA PO (13:11)
[2017-10-31 13:15] VITALS: BP 120/59
== END 2017-10-31 13:19 | disposition home or self-care (01) ==
LOC: ER 11:36
DX: R05 Cough (principal); I25.10 Atherosclerotic heart disease of native coronary artery without angina pectoris; I25.2 Old myocardial infarction; J44.9 Chronic obstructive pulmonary disease, unspecified; E11.22 Type 2 diabetes mellitus with diabetic chronic kidney disease; E11.42 Type 2 diabetes mellitus with diabetic polyneuropathy; N18.9 Chronic kidney disease, unspecified; E03.9 Hypothyroidism, unspecified; G89.29 Other chronic pain; I48.91 Unspecified atrial fibrillation; Z56.0 Unemployment, unspecified; Z79.4 Long term (current) use of insulin
CPT/HCPCS: 93005; 99283

== ENCOUNTER 2017-11-12 10:35 | Emergency (ER) | payer MEDICARE, MEDICAID ==
[~2017-11-12] VITALS: Ht 157.5 cm; Wt 93.2 kg
[~2017-11-12 10:35] MED LIST changes: +PRED10TA PO
[2017-11-12] MEDS ORDERED: aspirin 81mg tab.chew PO ONE (10:45)
[2017-11-12] MEDS ORDERED: nitroGLYCERIN 0.4mg SUBLingual tab SL PRN (10:45)
[2017-11-12 11:00] LABS: BASOPHILS % (AUTO) 0.3 % (0-1); EOSINOPHILS # (AUTO) 0.1 X10'3 (0-0.9); HEMATOCRIT 34.7 % (35.0-45.0); HEMOGLOBIN 12.1 g/dl (12.0-16.0); LYMPHOCYTES # (AUTO) 2.9 X10'3 (1.1-4.8); LYMPHOCYTES % (AUTO) 22.4 % (21-51); MEAN CORPUSCULAR HEMOGLOBIN 30.3 PG (27.0-31.0); MEAN CORPUSCULAR HGB CONC 34.9 % (33.0-36.5); MEAN CORPUSCULAR VOLUME 86.8 FL (78-98); MEAN PLATELET VOLUME 8.1 FL (7.4-10.4); MONOCYTES # (AUTO) 0.8 X10'3 (0-0.9); MONOCYTES % (AUTO) 6.5 % (2-12); NEUTROPHILS # (AUTO) 9.1 X10'3 (1.8-7.7); NEUTROPHILS % (AUTO) 69.8 % (42-75); PLATELET COUNT 213 X10'3 (140-440); RED CELL DISTRIBUTION WIDTH 13.6 % (11.5-14.5); WHITE BLOOD COUNT 12.9 X10'3 (4.5-11.0)
[2017-11-12 11:09] LABS: INR 1.9 INR; PARTIAL THROMBOPLASTIN TIME 37 SECONDS (22-32); PROTHROMBIN TIME 18.9 SECONDS (9.0-12.0)
[2017-11-12 11:13] LABS: ALANINE AMINOTRANSFERASE 31 U/L (12-78); ALBUMIN 3.3 G/DL (3.4-5.0); ALBUMIN/GLOBULIN RATIO 1.1 (1.1-1.5); ALKALINE PHOSPHATASE 63 IU/L (46-116); ANION GAP 8 (8-16); ASPARTATE AMINO TRANSFERASE 13 U/L (10-37); BILIRUBIN,TOTAL 0.3 MG/DL (0.1-1.0); BLOOD UREA NITROGEN 44 MG/DL (7-18); BUN/CREATININE RATIO 28.9 (6.6-38.0); CALCIUM 9.2 MG/DL (8.5-10.1); CHLORIDE 97 MMOL/L (99-107); CREATININE 1.52 MG/DL (0.40-0.90); GLUCOSE 146 MG/DL (70-104); POTASSIUM 4.2 MMOL/L (3.5-5.1); SODIUM 135 MMOL/L (135-145); TOTAL CARBON DIOXIDE 30.3 MMOL/L (24-32); TOTAL PROTEIN 6.4 G/DL (6.4-8.2); eGFR 35 ML/MIN
[2017-11-12 12:46] VITALS: BP 119/67
== END 2017-11-12 13:05 | disposition home or self-care (01) ==
LOC: ER 10:35
DX: R07.9 Chest pain, unspecified (principal); E11.42 Type 2 diabetes mellitus with diabetic polyneuropathy; E03.9 Hypothyroidism, unspecified; E11.22 Type 2 diabetes mellitus with diabetic chronic kidney disease; G89.29 Other chronic pain; I25.10 Atherosclerotic heart disease of native coronary artery without angina pectoris; I25.2 Old myocardial infarction; I48.91 Unspecified atrial fibrillation; J44.9 Chronic obstructive pulmonary disease, unspecified; N18.9 Chronic kidney disease, unspecified; Z86.711 Personal history of pulmonary embolism; Z95.1 Presence of aortocoronary bypass graft; Z56.0 Unemployment, unspecified; Z79.4 Long term (current) use of insulin; Z79.899 Other long term (current) drug therapy; Z95.5 Presence of coronary angioplasty implant and graft; Z79.01 Long term (current) use of anticoagulants; Z88.8 Allergy status to other drugs, medicaments and biological substances
CPT/HCPCS: 36415; 71045; 80053; 84484; 85025; 85610; 85730; 93005; 99285

== ENCOUNTER 2018-08-03 16:47 | Emergency (ER) | payer MEDICARE, MEDICAID ==
[~2018-08-03] VITALS: Ht 157.5 cm; Wt 98.7 kg
[~2018-08-03 16:47] MED LIST changes: +CITA-278 PO; -CITA20TA11 PO
--- NOTE | 2018-08-03 17:23 | NUR ---
Pt removed from trauma status per Dr Bird at [id number].
--- NOTE | 2018-08-03 17:34 | NUR ---
pt out to ct via wheelchair with defect repairer glassware
--- NOTE | 2018-08-03 18:05 | NUR ---
PT RETURNS FROM CT AND XRAY
[2018-08-03 18:12] VITALS: BP 138/43
[2018-08-03] MEDS ORDERED: HYDROcodone/acetaminophen 10/325mg tab PO ONE (18:20)
[2018-08-03] MEDS ORDERED: ibuprofen 200mg tablet PO ONE (18:20)
== END 2018-08-03 19:10 | disposition home or self-care (01) ==
LOC: ER 16:47
DX: S00.531A Contusion of lip, initial encounter (principal); R51 Headache; M25.532 Pain in left wrist; R10.32 Left lower quadrant pain; M79.602 Pain in left arm; M79.601 Pain in right arm; I48.91 Unspecified atrial fibrillation; I25.10 Atherosclerotic heart disease of native coronary artery without angina pectoris; I25.2 Old myocardial infarction; J44.9 Chronic obstructive pulmonary disease, unspecified; E03.9 Hypothyroidism, unspecified; G89.29 Other chronic pain; E11.42 Type 2 diabetes mellitus with diabetic polyneuropathy; E11.22 Type 2 diabetes mellitus with diabetic chronic kidney disease; N18.9 Chronic kidney disease, unspecified; M25.562 Pain in left knee; Z86.711 Personal history of pulmonary embolism; Z95.5 Presence of coronary angioplasty implant and graft; Z90.49 Acquired absence of other specified parts of digestive tract; Z95.1 Presence of aortocoronary bypass graft; Z56.0 Unemployment, unspecified; Z87.891 Personal history of nicotine dependence; Z88.8 Allergy status to other drugs, medicaments and biological substances; Z79.82 Long term (current) use of aspirin; Z79.4 Long term (current) use of insulin; Z79.01 Long term (current) use of anticoagulants; Z79.899 Other long term (current) drug therapy; W18.09XA Striking against other object with subsequent fall, initial encounter; Y93.89 Activity, other specified; Y92.89 Other specified places as the place of occurrence of the external cause; Y99.9 Unspecified external cause status
CPT/HCPCS: 70450; 72125; 73080; 73100; 73120; 73560; 99284

== ENCOUNTER 2018-12-16 09:18 | Inpatient (IN) | payer MEDICARE, MEDICAID ==
[2018-12-15 16:07] LABS: CLARITY,URINE CLEAR (Clear); COLOR,URINE STRAW (Yellow); GLUCOSE, URINE >=1000 mg/dl (Neg); KETONES,URINE NEGATIVE (Neg); LEUKOCYTE ESTERASE ,URINE NEGATIVE (Neg); NITRITES, URINE NEGATIVE (Neg); OCCULT BLOOD,URINE NEGATIVE (Neg); PH,URINE 6.5 (4.8-8.0); PROTEIN,URINE NEGATIVE (Neg); UROBILINOGEN,URINE 0.2 E.U/dL (0.2-1.0)
[2018-12-15 16:18] LABS: BASOPHILS # (AUTO) 0.1 X10'3 (0-0.2); BASOPHILS % (AUTO) 0.9 % (0-1); EOSINOPHILS # (AUTO) 0.2 X10'3 (0-0.9); EOSINOPHILS % (AUTO) 2.8 % (0-6); LYMPHOCYTES # (AUTO) 1.8 X10'3 (1.1-4.8); LYMPHOCYTES % (AUTO) 21.6 % (21-51); MEAN CORPUSCULAR HEMOGLOBIN 30.3 PG (27.0-31.0); MEAN CORPUSCULAR HGB CONC 33.7 g/dL (33.0-36.5); MEAN CORPUSCULAR VOLUME 89.7 FL (78-98); MEAN PLATELET VOLUME 8.2 FL (7.4-10.4); MONOCYTES # (AUTO) 0.6 X10'3 (0-0.9); MONOCYTES % (AUTO) 6.8 % (2-12); NEUTROPHILS # (AUTO) 5.7 X10'3 (1.8-7.7); NEUTROPHILS % (AUTO) 67.9 % (42-75); PRE OP HEMATOCRIT 36.7 % (35.0-45.0); PRE OP HEMOGLOBIN 12.4 g/dL (12.0-16.0); PRE OP PLATELET COUNT 194 X10'3 (140-440); RED BLOOD COUNT 4.09 X10'6 (4.20-5.60); RED CELL DISTRIBUTION WIDTH 14.8 % (11.5-14.5)
[2018-12-15 16:19] LABS: UA COLLECTION TYPE NON-SPECIFIED
[2018-12-15 16:20] LABS: BACTERIA,URINE FEW /HPF (Neg); RBC,URINE 0-2 /HPF (0-2); SQUAMOUS EPITHELIAL CELL,UR FEW /LPF (FEW); WBC,URINE 0-4 /HPF (0-4)
[2018-12-15 16:34] LABS: HEMOGLOBIN A1C 7.6 % (4.5-6.2)
[2018-12-15 16:35] LABS: PRE OP PROTIME 10.1 SECONDS (9.0-12.0)
[2018-12-15 16:41] LABS: ALBUMIN 3.7 G/DL (3.4-5.0); ALBUMIN/GLOBULIN RATIO 1.2 (1.1-1.5); ALKALINE PHOSPHATASE 93 IU/L (46-116); BLOOD UREA NITROGEN 27 MG/DL (7-18); BUN/CREATININE RATIO 23.9 (6.6-38.0); CALCIUM 9.8 MG/DL (8.5-10.1); CHLORIDE 101 MMOL/L (99-107); CREATININE 1.13 MG/DL (0.40-0.90); PRE OP ALT 38 U/L (30-65); PRE OP ANION GAP 5 (8-16); PRE OP AST 22 U/L (10-37); PRE OP BILIRUB, TOTAL 0.3 MG/DL (0.0-1.0); PRE OP POTASSIUM 3.7 MMOL/L (3.4-5.1); PRE OP SODIUM 137 MMOL/L (135-145); TOTAL PROTEIN 6.9 G/DL (6.4-8.2); eGFR 49 ML/MIN
[2018-12-15 16:53] LABS: PRE OP GLUCOSE 319 MG/DL (70-104)
[~2018-12-16] VITALS: Ht 157.5 cm; Wt 97.5 kg
[2018-12-16] VITALS (25 sets, daily range): BP systolic 111–151; BP diastolic 56–79
[~2018-12-16 09:18] MED LIST changes: +ALBU18HF2 INH; -BIMA2.5D EACHEYE; +BIMA2.5D RIGHTEYE; +CARV3.122 PO; -CITA-278 PO; +CITA20TA28 PO; +CLOP75TA15 PO; -CLOT15CR10 TP; -DOCU100C40 PO; +DOCUMENT DATE & TIME OF BETA-BLOCKER PO ONE; -DORZ10DR2; +DORZ10DR2 RIGHTEYE; -FLUT16SP26 NAS; +GABA600T13 PO; -GABA600T2 PO; -HYDR-3964 PO; +HYDR25TA4 PO; +INSU100I31 SQ; -LANTUS SQ; -LINA5TAB4 PO; +LIRA0.6P SQ; +LORA10TA7 PO; -METO100T7 PO; +MULT-1074 PO; -NIFE90TA37 PO; +NITR0.4T51 SL; -PRED10TA PO; +ceFAZolin 2gm in dextrose, iso 100 ML IV ONE; +famotidine 20mg tablet PO ONE; +ringers solution, lacted 1,000 ML IV SCH
[2018-12-16] MEDS ORDERED: BRIM5DRO RIGHTEYE (10:54)
[2018-12-16] MEDS ORDERED: insulin regular, human 10 units/0.1 ml syringe IV STA (10:59)
[2018-12-16] MEDS ORDERED: LIDOcaine 1% (10mg/ml) 2ml vial ONE (11:03)
[2018-12-16] MEDS ORDERED: heparin 10,000 units/1 ML INJ ONE (11:08)
[2018-12-16] MEDS ORDERED: sevoflurane 250ml liquid IH ONE (11:40)
[2018-12-16] MEDS ORDERED: LIDOcaine 1%/PF 5ML 10 MG/ML VIAL ONE (11:40)
[2018-12-16] MEDS ORDERED: midazolam 2 mg/2 ml injection ONE (11:42)
[2018-12-16] MEDS ORDERED: fentaNYL /PF 50mcg/ml 5ml ampule ONE (11:43)
[2018-12-16] MEDS ORDERED: insulin regular, human vial - multi-dose ONE (12:09)
[2018-12-16] MEDS ORDERED: normal saline 1000ml 1,000 ML IV ONE (12:27)
[2018-12-16] MEDS ORDERED: ondansetron/PF 4mg/2ml inj IV PRN (12:30)
[2018-12-16] MEDS ORDERED: HYDROmorphone inj. 0.5 MG/0.5 ML DISP.SYRIN IV PRN (12:30)
--- NOTE | 2018-12-16 12:49 | NUR ---
Received from OR via BED, accompanied by Anesthesiologist DR GUERRA, report given by Anesthesiologist. PT DROWSY, NO S/S OF DISTRESS/DISCOMFORT, LEFT GROIN W/INO SPARKS. Addendum: 12/16/18 at 1328 by Nataly Shen RN Amended: Links added.
[2018-12-16] MEDS ORDERED: naloxone 0.4 mg/ml inj IV PRN (12:50)
[2018-12-16] MEDS ORDERED: CADD PCA waste documentation MC PRN (12:50)
[2018-12-16] MEDS ORDERED: ondansetron/PF 4mg/2ml inj ONE (13:38)
[2018-12-16] MEDS ORDERED: LIDOcaine 2% (20mg/ml) 5ml vial ONE (13:38)
[2018-12-16] MEDS ORDERED: propofol inj 20 ML IV ONE (13:38)
[2018-12-16] MEDS ORDERED: non-formulary drug (Albuterol Sulfate (Ventolin Hfa) 2 PUFFS) INH PRN (13:45)
[2018-12-16] MEDS ORDERED: nitroGLYCERIN 0.4mg SUBLingual tab SL PRN (13:45)
[2018-12-16] MEDS: morphine 4 MG/ML inj SYRINge IV PRN ×2 (14:00→14:06)
[2018-12-16] MEDS ORDERED: albuterol 2.5 MG/3 ML nebule NEB PRN (14:00)
[2018-12-16] MEDS: HYDROmorphone/NS 1 mg/ml CADD 50 ML IV SCH ×6 (14:22→23:00)
[2018-12-16] MEDS: albuterol 2.5 MG/3 ML nebule NEB SCH ×2 (15:00→20:31)
--- NOTE | 2018-12-16 15:06 | NUR ---
RECEIVED REPORT FROM ERICA JUSTICE. AWAITING PATIENT ARRIVAL TO FLOOR.
--- NOTE | 2018-12-16 15:19 | NUR ---
Report called to receiving nurse. Transferred via BED ON TELE, 1 BAG OF Belongings SENT W/PT TO ROOM [facility] [place], RECEIVING RN AT BEDSIDE TO RECEIVE PT. Special Issues communicated to receiving nurse. YES. Addendum: 12/16/18 at 1537 by Nataly Shen RN Amended: Links added.
--- NOTE | 2018-12-16 15:45 | NUR ---
RECEIVED PATIENT TO ROOM 354C IN BED ACCOMPANIED BY X2 STAFF. PATIENT DROWSY BUT EASILY AROUSES TO NAME AND IS ORIENTED X4. ORIENTED PATIENT TO ROOM AND CALL LIGHT. CALL LIGHT WITHIN PATIENT REACH, BED IS LOW AND LOCKED. ORIENTED PATIENT TO DILAUDID CADD PUMP WELL. 1 BAG OF BELONGING PLACED AT PATIENT BEDSIDE DRESSER.
--- NOTE | 2018-12-16 15:50 | NUR ---
DRESSING TO LEFT GROIN CDI.
[2018-12-16] MEDS: ceFAZolin 1GM/D5W- ADD-VANTAGE 50 ML IV SCH (16:26)
--- NOTE | 2018-12-16 18:24 | NUR ---
Problems reprioritized. Patient report given, questions answered & plan of care reviewed with ERICA Alvarenga and ERICA Riggs.
--- NOTE | 2018-12-16 18:30 | NUR ---
Patient in room [facility] 354. I have received report from ERICA Lawler and had the opportunity to ask questions and assume patient care with ERICA Riggs. Pt awake in room sitting up in bed, states tired, vss. dressing to left groin CD&I, tender to touch, no bruising or swelling noted. Pedal pulse weak, but palpable. Addendum: 12/16/18 at 7 by Salvatore Escobar RN Amended: Links added.
--- NOTE | 2018-12-16 18:52 | NUR ---
Patient in room [facility] 354. I have received report from Rina MALDONADO and had the opportunity to ask questions and assume patient care.
[2018-12-16] MEDS ORDERED: non-formulary drug (Budesonide/Formoterol Fumarate (Symbicort 160-4.5 Mcg Inhaler) 2 PUFFS INH SCH (20:00)
[2018-12-16] MEDS ORDERED: BRIMONIDINE TARTRATE RIGHTEYE SCH (20:00)
[2018-12-16] MEDS ORDERED: non-formulary drug (Gabapentin 1 TABLET) PO SCH (20:00)
[2018-12-16] MEDS ORDERED: PREDNISOLONE SODIUM PHOSPHATE LEFTEYE SCH (20:00)
[2018-12-16] MEDS: gabapentin 300mg capsule PO SCH (20:31)
[2018-12-16] MEDS: budesonide 0.5mg/2ml UD nebule IH SCH (20:32)
[2018-12-16] MEDS: carVEDilol 3.125mg tablet PO SCH (20:32)
[2018-12-16] MEDS: atorvastatin 20mg tablet PO SCH (20:33)
[2018-12-16] MEDS: warfarin 1mg tablet PO SCH (20:35)
[2018-12-16] MEDS: warfarin 5mg tablet PO SCH (20:36)
[2018-12-16] MEDS: prednisoLONE acetate 1% ophth susp 5ml LEFTEYE SCH (20:37)
[2018-12-16] MEDS: dorzolamide 2% ophthalmic drops 10ml RIGHTEYE SCH (20:38)
[2018-12-16] MEDS: brimonidine 0.2% 5 ML ophthalmic drops RIGHTEYE SCH (20:40)
[2018-12-16] MEDS: OPTH RIGHTEYE SCH (20:59)
[2018-12-16] MEDS: LUMIGAN 0.01% RIGHTEYE SCH (20:59)
[2018-12-16] MEDS ORDERED: latanoprost 0.005% 2.5ml ophthalmic drops RIGHTEYE SCH (21:00)
[2018-12-16] MEDS ORDERED: SIMVASTATIN 40 MG PO SCH (21:00)
[2018-12-16] MEDS: insulin glargine (Lantus) pen - multi-dose SQ SCH (21:04)
[2018-12-16] MEDS: lisinopril 20mg tablet PO SCH (21:05)
--- NOTE | 2018-12-16 21:05 | NUR ---
No void no desire at this time. pt states does not want to get oob at this time. denies any urgency to void, will get up "later" Addendum: 12/16/18 at 2134 by Salvatore Escobar RN Amended: Links added.
[2018-12-17] VITALS: BP_SYST 127; BP_SYST 99; BP_DIAS 51; BP_DIAS 58
[2018-12-17] MEDS ORDERED: normal saline 1000ml 1,000 ML IV SCH (00:12)
--- NOTE | 2018-12-17 00:32 | NUR ---
250ml ns bolus given per protocal for low u/o. per protocal Addendum: 12/17/18 at 0033 by Salvatore Escobar RN Amended: Links added.
[2018-12-17] MEDS: ceFAZolin 1GM/D5W- ADD-VANTAGE 50 ML IV SCH ×2 (00:51→08:10)
[2018-12-17] MEDS: HYDROmorphone/NS 1 mg/ml CADD 50 ML IV SCH ×12 (01:00→23:00)
--- NOTE | 2018-12-17 06:15 | NUR ---
Patient in room [facility] 354. I have received report from ERICA Riggs and had the opportunity to ask questions and assume patient care.
[2018-12-17 06:24] LABS: BASOPHILS % (AUTO) 0.4 % (0-1); EOSINOPHILS # (AUTO) 0.2 X10'3 (0-0.9); EOSINOPHILS % (AUTO) 1.8 % (0-6); HEMATOCRIT 34.1 % (35.0-45.0); HEMOGLOBIN 11.3 g/dl (12.0-16.0); LYMPHOCYTES # (AUTO) 1.3 X10'3 (1.1-4.8); LYMPHOCYTES % (AUTO) 14.8 % (21-51); MEAN CORPUSCULAR HEMOGLOBIN 30.6 PG (27.0-31.0); MEAN CORPUSCULAR HGB CONC 33.2 g/dL (33.0-36.5); MEAN CORPUSCULAR VOLUME 92.1 FL (78-98); MEAN PLATELET VOLUME 8.5 FL (7.4-10.4); MONOCYTES # (AUTO) 0.5 X10'3 (0-0.9); MONOCYTES % (AUTO) 5.9 % (2-12); NEUTROPHILS # (AUTO) 6.9 X10'3 (1.8-7.7); NEUTROPHILS % (AUTO) 77.1 % (42-75); PLATELET COUNT 177 X10'3 (140-440); RED CELL DISTRIBUTION WIDTH 14.9 % (11.5-14.5); WHITE BLOOD COUNT 8.9 X10'3 (4.5-11.0)
--- NOTE | 2018-12-17 06:25 | NUR ---
Problems reprioritized. Patient report given, questions answered & plan of care reviewed with Yamilet RN.
[2018-12-17 06:30] VITALS: BP 116/56
[2018-12-17] MEDS: budesonide 0.5mg/2ml UD nebule IH SCH ×2 (06:57→19:35)
[2018-12-17] MEDS: albuterol 2.5 MG/3 ML nebule NEB SCH ×4 (06:57→19:35)
[2018-12-17] MEDS ORDERED: lisinopril 20mg tablet PO SCH (08:00)
[2018-12-17] MEDS ORDERED: non-formulary drug (Multivitamin (Multi-Vitamin Daily) 1 EACH) PO SCH (08:00)
[2018-12-17] MEDS ORDERED: non-formulary drug (Lisinopril* 40 MG) PO SCH (08:00)
[2018-12-17] MEDS ORDERED: LIRAGLUTIDE 1.8 MG SQ SCH (08:00)
[2018-12-17] MEDS: VICTOZA 1.8 MG SQ SCH (08:00)
[2018-12-17] MEDS: multivitamins, therapeutics tablet PO SCH (08:10)
[2018-12-17] MEDS: montelukast 10mg tablet PO SCH (08:11)
[2018-12-17] MEDS: loratadine 10mg tablet PO SCH (08:11)
[2018-12-17] MEDS: gabapentin 300mg capsule PO SCH ×2 (08:11→20:33)
[2018-12-17] MEDS: citalopram 20mg tablet PO SCH (08:11)
[2018-12-17] MEDS: levoTHYROXINE 112mcg tablet PO SCH (08:11)
[2018-12-17] MEDS: clopidogrel 75mg tablet PO SCH (08:11)
[2018-12-17] MEDS: HYDROchlorothiazide 25mg tablet PO SCH (08:12)
[2018-12-17] MEDS: aspirin 81mg tablet.DR PO SCH (08:12)
[2018-12-17] MEDS: enoxaparin 40mg/0.4ml syringe SQ SCH (08:12)
[2018-12-17] MEDS: carVEDilol 3.125mg tablet PO SCH ×2 (08:12→20:48)
[2018-12-17] MEDS: brimonidine 0.2% 5 ML ophthalmic drops RIGHTEYE SCH ×2 (08:13→20:41)
[2018-12-17] MEDS: dorzolamide 2% ophthalmic drops 10ml RIGHTEYE SCH ×2 (08:13→20:40)
[2018-12-17] MEDS: insulin glargine (Lantus) pen - multi-dose SQ SCH ×2 (08:26→20:52)
[2018-12-17] MEDS: prednisoLONE acetate 1% ophth susp 5ml LEFTEYE SCH ×2 (08:28→20:42)
--- NOTE | 2018-12-17 10:44 | NUR ---
16French dawn catheter inserted with no issues. Patient tolerated procedure well. Dawn secured to leg, draining to gravity.
[2018-12-17 11:00] VITALS: BP 121/54
--- NOTE | 2018-12-17 11:30 | NUR ---
Patient pediatric critical care nurse reported that she found the patient sitting up on the edge of her bed with her oxygen off. Patient appeared slightly confused. When I went in to check on her she was lying back down with oxygen in place, and was reoriented. Oxygen sat was ranging between 94-96% on 2L of oxygen. Patient has bipap at [facility] that she usually uses. Will continue to monitor.
--- NOTE | 2018-12-17 15:53 | NUR ---
DM Consult: A1C 7.6. Pt seen by RD for written/verbal DM ed. Pt fatigued and not able to waken fully or respond during RD visit. Written DM ed w/ RD contact information left at bedside. Addendum: 12/17/18 at [address] Amended: Links added.
--- NOTE | 2018-12-17 18:30 | NUR ---
Patient in room [facility] 354. I have received report from ERICA TELLEZ and had the opportunity to ask questions and assume patient care WITH ERICA MOISE. Addendum: 12/17/18 at 8 by Salvatore Escobar RN Amended: Links added.
--- NOTE | 2018-12-17 18:30 | NUR ---
Problems reprioritized. Patient report given, questions answered & plan of care reviewed with ERICA Riggs & ERICA Alvarenga.
--- NOTE | 2018-12-17 18:30 | NUR ---
Patient in room [facility] 354. I have received report from Yamilet MALDONADO and had the opportunity to ask questions and assume patient care.
[2018-12-17 19:00] VITALS: BP 146/53
[2018-12-17] MEDS: lisinopril 20mg tablet PO SCH (20:35)
[2018-12-17] MEDS: atorvastatin 20mg tablet PO SCH (20:35)
[2018-12-17] MEDS: warfarin 1mg tablet PO SCH (20:37)
[2018-12-17] MEDS: warfarin 5mg tablet PO SCH (20:38)
[2018-12-17] MEDS: OPTH RIGHTEYE SCH (20:47)
[2018-12-17] MEDS: LUMIGAN 0.01% RIGHTEYE SCH (20:47)
--- NOTE | 2018-12-17 21:38 | NUR ---
SAT 97% WHEN AMB ON 4 L N/C, WENT TO 89% ON 2/5 L, ENC C&DB, IS. SAT NOW 93 TO 94% ON 3L N/C. Addendum: 12/17/18 at 2138 by Salvatore Escobar RN Amended: Links added.
[2018-12-18] MEDS: normal saline 500ml IV soln 500 ML IV SCH ×2 (00:12→03:30)
[2018-12-18] MEDS: HYDROmorphone/NS 1 mg/ml CADD 50 ML IV SCH ×6 (01:00→11:00)
--- NOTE | 2018-12-18 03:34 | NUR ---
Agree with nursing assessment done by ERICA Riggs. Addendum: 12/18/18 at 0334 by Salvatore Escobar RN Amended: Links added.
[2018-12-18 05:56] LABS: BASOPHILS % (AUTO) 0.5 % (0-1); EOSINOPHILS # (AUTO) 0.2 X10'3 (0-0.9); EOSINOPHILS % (AUTO) 2.3 % (0-6); HEMATOCRIT 33.8 % (35.0-45.0); HEMOGLOBIN 11.4 g/dl (12.0-16.0); LYMPHOCYTES # (AUTO) 1.3 X10'3 (1.1-4.8); LYMPHOCYTES % (AUTO) 15.2 % (21-51); MEAN CORPUSCULAR HEMOGLOBIN 30.8 PG (27.0-31.0); MEAN CORPUSCULAR HGB CONC 33.7 g/dL (33.0-36.5); MEAN CORPUSCULAR VOLUME 91.3 FL (78-98); MEAN PLATELET VOLUME 8.4 FL (7.4-10.4); MONOCYTES # (AUTO) 0.8 X10'3 (0-0.9); MONOCYTES % (AUTO) 9.8 % (2-12); NEUTROPHILS % (AUTO) 72.2 % (42-75); PLATELET COUNT 159 X10'3 (140-440); RED BLOOD COUNT 3.71 X10'6 (4.20-5.60); RED CELL DISTRIBUTION WIDTH 14.9 % (11.5-14.5); WHITE BLOOD COUNT 8.2 X10'3 (4.5-11.0)
--- NOTE | 2018-12-18 06:05 | NUR ---
Patient in room [facility] 354. I have received report from Oneil RN and ERICA Alvarenga and had the opportunity to ask questions and assume patient care.
[2018-12-18 06:07] LABS: INR 1.1 INR
--- NOTE | 2018-12-18 06:28 | NUR ---
Problems reprioritized. Patient report given, questions answered & plan of care reviewed with Azeb MALDONADO.
[2018-12-18] MEDS: budesonide 0.5mg/2ml UD nebule IH SCH (07:19)
[2018-12-18] MEDS: albuterol 2.5 MG/3 ML nebule NEB SCH ×3 (07:19→15:00)
[2018-12-18 07:20] VITALS: BP 102/60
[2018-12-18] MEDS: VICTOZA 1.8 MG SQ SCH (08:00)
[2018-12-18] MEDS: carVEDilol 3.125mg tablet PO SCH (08:00)
[2018-12-18] MEDS: HYDROchlorothiazide 25mg tablet PO SCH (08:00)
[2018-12-18] MEDS: prednisoLONE acetate 1% ophth susp 5ml LEFTEYE SCH (08:55)
[2018-12-18] MEDS: citalopram 20mg tablet PO SCH (08:55)
[2018-12-18] MEDS: loratadine 10mg tablet PO SCH (08:55)
[2018-12-18] MEDS: aspirin 81mg tablet.DR PO SCH (08:56)
[2018-12-18] MEDS: gabapentin 300mg capsule PO SCH (08:56)
[2018-12-18] MEDS: levoTHYROXINE 112mcg tablet PO SCH (08:58)
[2018-12-18] MEDS: clopidogrel 75mg tablet PO SCH (08:58)
[2018-12-18] MEDS: multivitamins, therapeutics tablet PO SCH (08:58)
[2018-12-18] MEDS: montelukast 10mg tablet PO SCH (08:58)
[2018-12-18] MEDS: dorzolamide 2% ophthalmic drops 10ml RIGHTEYE SCH (08:59)
[2018-12-18] MEDS: brimonidine 0.2% 5 ML ophthalmic drops RIGHTEYE SCH (08:59)
[2018-12-18] MEDS: enoxaparin 40mg/0.4ml syringe SQ SCH (09:00)
[2018-12-18] MEDS: insulin glargine (Lantus) pen - multi-dose SQ SCH (09:12)
[2018-12-18 11:30] VITALS: BP 110/63
[2018-12-18] MEDS ORDERED: TRAM50TA2 PO (14:58)
--- NOTE | 2018-12-18 15:15 | NUR ---
Patient voided 250ml about an hour after her dawn was removed. She also voided another 200ml right before being wheeled downstairs.
--- NOTE | 2018-12-18 17:55 | NUR ---
Patient discharged. PIV removed: cath tip in tact. Education given to patient and spouse and spouse verbalized understanding. Patient received Tramadol from Pastor from [employer]. Patient was wheeled down by staff.
== END 2018-12-18 17:35 | disposition home or self-care (01) | DRG 254 ==
LOC: PAS IN 09:18 → EDSTATUS 12:45 → SUR 3N 16:23
PROVIDERS: ADMIT Surgery; ATTEND Surgery
PROC: 04BL0ZZ Excision of Left Femoral Artery, Open Approach (ICD-10-PCS; principal; 2018-12-16 11:40)
DX: I77.0 Arteriovenous fistula, acquired (principal); E11.22 Type 2 diabetes mellitus with diabetic chronic kidney disease; N18.2 Chronic kidney disease, stage 2 (mild); F32.9 Major depressive disorder, single episode, unspecified; J44.9 Chronic obstructive pulmonary disease, unspecified; Z80.1 Family history of malignant neoplasm of trachea, bronchus and lung; Z80.6 Family history of leukemia; Z86.718 Personal history of other venous thrombosis and embolism; Z87.01 Personal history of pneumonia (recurrent); Z88.8 Allergy status to other drugs, medicaments and biological substances; Z79.899 Other long term (current) drug therapy
CPT/HCPCS: 36415; 80053; 81001; 82948; 83036; 84443; 85025; 85610; 85730; 86885; 86900; 86901; 87070; 93005; 94640; 94760; 97116; 97162; 97530; A6257; A6258; A7000; C1758; G0378; J0690; J1170; J1644; J1650; J1815; J2001; J2250; J2270; J2405; J2704; J3010; J3490; J7030; J7120; J7626

== ENCOUNTER 2019-01-05 17:08 | Emergency (ER) | payer MEDICARE, MEDICAID ==
[~2019-01-05] VITALS: Ht 157.5 cm; Wt 88.0 kg
[~2019-01-05 17:08] MED LIST changes: +BRIM5DRO RIGHTEYE; -DOCUMENT DATE & TIME OF BETA-BLOCKER PO ONE; +TRAM50TA2 PO; -ceFAZolin 2gm in dextrose, iso 100 ML IV ONE; -famotidine 20mg tablet PO ONE; -ringers solution, lacted 1,000 ML IV SCH
[2019-01-05] MEDS ORDERED: normal saline 1000ML IV soln IVB ONE (17:35)
[2019-01-05 17:51] LABS: BASOPHILS # (AUTO) 0.1 X10'3 (0-0.2); BASOPHILS % (AUTO) 0.9 % (0-1); EOSINOPHILS # (AUTO) 0.2 X10'3 (0-0.9); EOSINOPHILS % (AUTO) 3.3 % (0-6); HEMATOCRIT 36.5 % (35.0-45.0); HEMOGLOBIN 12.4 g/dl (12.0-16.0); LYMPHOCYTES % (AUTO) 25.8 % (21-51); MEAN CORPUSCULAR HGB CONC 33.8 g/dL (33.0-36.5); MEAN CORPUSCULAR VOLUME 88.8 FL (78-98); MEAN PLATELET VOLUME 8.4 FL (7.4-10.4); MONOCYTES # (AUTO) 0.6 X10'3 (0-0.9); MONOCYTES % (AUTO) 7.8 % (2-12); NEUTROPHILS # (AUTO) 4.7 X10'3 (1.8-7.7); NEUTROPHILS % (AUTO) 62.2 % (42-75); PLATELET COUNT 201 X10'3 (140-440); RED BLOOD COUNT 4.11 X10'6 (4.20-5.60); RED CELL DISTRIBUTION WIDTH 14.7 % (11.5-14.5); WHITE BLOOD COUNT 7.6 X10'3 (4.5-11.0)
[2019-01-05 18:04] LABS: ALANINE AMINOTRANSFERASE 51 U/L (12-78); ALBUMIN 3.5 G/DL (3.4-5.0); ALBUMIN/GLOBULIN RATIO 1.1 (1.1-1.5); ALKALINE PHOSPHATASE 88 IU/L (46-116); ANION GAP 8 (8-16); ASPARTATE AMINO TRANSFERASE 29 U/L (10-37); BILIRUBIN,TOTAL 0.3 MG/DL (0.1-1.0); BLOOD UREA NITROGEN 29 MG/DL (7-18); BUN/CREATININE RATIO 25.7 (6.6-38.0); CALCIUM 10.1 MG/DL (8.5-10.1); CHLORIDE 102 MMOL/L (99-107); CREATININE 1.13 MG/DL (0.40-0.90); GLUCOSE 86 MG/DL (70-104); MAGNESIUM 1.8 MG/DL (1.5-2.4); POTASSIUM 3.4 MMOL/L (3.5-5.1); SODIUM 137 MMOL/L (135-145); TOTAL CARBON DIOXIDE 27.3 MMOL/L (24-32); TOTAL PROTEIN 6.8 G/DL (6.4-8.2); eGFR 49 ML/MIN
[2019-01-05] MEDS ORDERED: potassium Cl 20 mEq SR tablet PO STA (18:32)
[2019-01-05 18:35] LABS: CLARITY,URINE CLEAR (Clear); COLOR,URINE YELLOW (Yellow); GLUCOSE, URINE NEGATIVE (Neg); KETONES,URINE NEGATIVE (Neg); LEUKOCYTE ESTERASE ,URINE NEGATIVE (Neg); NITRITES, URINE NEGATIVE (Neg); OCCULT BLOOD,URINE NEGATIVE (Neg); PROTEIN,URINE NEGATIVE (Neg); UROBILINOGEN,URINE 0.2 E.U/dL (0.2-1.0)
[2019-01-05 18:36] LABS: UA COLLECTION TYPE CLN CATCH MIDSTREAM
[2019-01-05] MEDS ORDERED: LOPE2CAP PO (18:47)
[2019-01-05] MEDS ORDERED: POTA20TA19 PO (18:47)
[2019-01-05 19:51] VITALS: BP 165/81
== END 2019-01-05 19:45 | disposition home or self-care (01) ==
LOC: ER 17:09
DX: R19.7 Diarrhea, unspecified (principal); E86.0 Dehydration; I48.91 Unspecified atrial fibrillation; I25.10 Atherosclerotic heart disease of native coronary artery without angina pectoris; I25.2 Old myocardial infarction; J44.9 Chronic obstructive pulmonary disease, unspecified; E03.9 Hypothyroidism, unspecified; G89.29 Other chronic pain; E11.22 Type 2 diabetes mellitus with diabetic chronic kidney disease; N18.9 Chronic kidney disease, unspecified; E11.42 Type 2 diabetes mellitus with diabetic polyneuropathy; Z56.0 Unemployment, unspecified; Z95.5 Presence of coronary angioplasty implant and graft; Z90.49 Acquired absence of other specified parts of digestive tract; Z95.1 Presence of aortocoronary bypass graft; Z98.890 Other specified postprocedural states; Z86.711 Personal history of pulmonary embolism; Z79.01 Long term (current) use of anticoagulants; Z79.899 Other long term (current) drug therapy; Z79.4 Long term (current) use of insulin; Z79.82 Long term (current) use of aspirin; Z88.8 Allergy status to other drugs, medicaments and biological substances
CPT/HCPCS: 36415; 80053; 81003; 83735; 85025; 85610; 96360; 99284; J7030

== ENCOUNTER 2019-02-21 10:10 | Inpatient (IN) | payer MEDICARE, MEDICAID ==
[~2019-02-21] VITALS: Ht 157.5 cm; Wt 90.0 kg
[~2019-02-21 10:10] MED LIST changes: +LOPE2CAP PO; -TRAM50TA2 PO
[2019-02-21 10:38] LABS: BASOPHILS % (AUTO) 0.7 % (0-1); EOSINOPHILS # (AUTO) 0.3 X10'3 (0-0.9); HEMATOCRIT 26.8 % (35.0-45.0); HEMOGLOBIN 9.2 g/dl (12.0-16.0); LYMPHOCYTES # (AUTO) 1.1 X10'3 (1.1-4.8); LYMPHOCYTES % (AUTO) 15.6 % (21-51); MEAN CORPUSCULAR HEMOGLOBIN 31.3 PG (27.0-31.0); MEAN CORPUSCULAR HGB CONC 34.3 g/dL (33.0-36.5); MEAN CORPUSCULAR VOLUME 91.1 FL (78-98); MEAN PLATELET VOLUME 8.2 FL (7.4-10.4); MONOCYTES # (AUTO) 0.7 X10'3 (0-0.9); MONOCYTES % (AUTO) 9.6 % (2-12); NEUTROPHILS # (AUTO) 4.9 X10'3 (1.8-7.7); NEUTROPHILS % (AUTO) 70.1 % (42-75); PLATELET COUNT 195 X10'3 (140-440); RED BLOOD COUNT 2.94 X10'6 (4.20-5.60); RED CELL DISTRIBUTION WIDTH 14.8 % (11.5-14.5); WHITE BLOOD COUNT 6.9 X10'3 (4.5-11.0)
[2019-02-21 10:47] LABS: ALANINE AMINOTRANSFERASE 32 U/L (12-78); ALBUMIN 3.2 G/DL (3.4-5.0); ALBUMIN/GLOBULIN RATIO 1.1 (1.1-1.5); ALKALINE PHOSPHATASE 78 IU/L (46-116); ANION GAP 6 (8-16); ASPARTATE AMINO TRANSFERASE 17 U/L (10-37); BILIRUBIN,TOTAL 0.2 MG/DL (0.1-1.0); BLOOD UREA NITROGEN 38 MG/DL (7-18); CHLORIDE 99 MMOL/L (99-107); CREATININE 1.41 MG/DL (0.40-0.90); GLUCOSE 111 MG/DL (70-104); POTASSIUM 3.9 MMOL/L (3.5-5.1); SODIUM 135 MMOL/L (135-145); TOTAL CARBON DIOXIDE 29.7 MMOL/L (24-32); TOTAL PROTEIN 6.1 G/DL (6.4-8.2); eGFR 38 ML/MIN
[2019-02-21] MEDS ORDERED: INSU100I25 SQ ×2 (11:01→11:02)
[2019-02-21] MEDS ORDERED: normal saline 1000ML IV soln IVB ONE (11:10)
--- NOTE | 2019-02-21 12:45 | NUR ---
BACK FROM CT, RESTING IN POC, VSS, WAITING HOSPITALIST.
[2019-02-21] MEDS ORDERED: magnesium hydroxide 30ml (MOM) UD suspension PO PRN (13:15)
[2019-02-21] MEDS ORDERED: ondansetron/PF 4mg/2ml inj IV PRN (13:15)
[2019-02-21] MEDS ORDERED: acetaminophen 325mg tablet PO PRN (13:15)
[2019-02-21] MEDS ORDERED: mag hydrox/Alum hydrox/simeth 30ml oral suspension PO PRN (13:15)
[2019-02-21 14:27] LABS: HEMATOCRIT 24.5 % (35.0-45.0); HEMOGLOBIN 8.4 g/dl (12.0-16.0); MEAN CORPUSCULAR HEMOGLOBIN 30.9 PG (27.0-31.0); MEAN CORPUSCULAR HGB CONC 34.2 g/dL (33.0-36.5); MEAN CORPUSCULAR VOLUME 90.4 FL (78-98); MEAN PLATELET VOLUME 8.7 FL (7.4-10.4); PLATELET COUNT 168 X10'3 (140-440); RED BLOOD COUNT 2.71 X10'6 (4.20-5.60); RED CELL DISTRIBUTION WIDTH 14.6 % (11.5-14.5); WHITE BLOOD COUNT 5.7 X10'3 (4.5-11.0)
[2019-02-21 15:00] VITALS: BP 119/52
[2019-02-21] MEDS: normal saline 1000ml 1,000 ML IV SCH (16:14)
--- NOTE | 2019-02-21 16:48 | NUR ---
Sent Dr Echevarria PAGER ID: [phone] MESSAGE: RE: Georgette Hinton [id number]. Should we start bowel prep for colonoscopy tomorrow? -Laurel [phone]
[2019-02-21] MEDS ORDERED: PEG 3350/Na sulf,bicarb,Cl/KCl oral sol 4 liter bottle PO ONE (16:55)
[2019-02-21 17:24] LABS: HEMATOCRIT 23.9 % (35.0-45.0); HEMOGLOBIN 8.2 g/dl (12.0-16.0); MEAN CORPUSCULAR HGB CONC 34.2 g/dL (33.0-36.5); MEAN CORPUSCULAR VOLUME 90.7 FL (78-98); MEAN PLATELET VOLUME 8.3 FL (7.4-10.4); PLATELET COUNT 166 X10'3 (140-440); RED BLOOD COUNT 2.64 X10'6 (4.20-5.60); WHITE BLOOD COUNT 5.4 X10'3 (4.5-11.0)
[2019-02-21] MEDS ORDERED: nitroGLYCERIN 0.4mg SUBLingual tab SL PRN (18:15)
[2019-02-21] MEDS ORDERED: phytonadione inj. 2 MG in normal saline 100ml IV soln 99.8 ML IV ONE (18:15)
[2019-02-21] MEDS ORDERED: albuterol 2.5 MG/3 ML nebule NEB PRN (18:25)
--- NOTE | 2019-02-21 18:47 | NUR ---
Patient in room PCU 3024. I have received report from Laurel MALDONADO and had the opportunity to ask questions and assume patient care.
--- NOTE | 2019-02-21 18:50 | NUR ---
Problems reprioritized. Patient report given, questions answered & plan of care reviewed with ERICA Goodman and ERICA Erwin.
[2019-02-21 19:00] VITALS: BP 133/58
[2019-02-21] MEDS: gabapentin 300mg capsule PO SCH (19:17)
[2019-02-21] MEDS: carVEDilol 3.125mg tablet PO SCH (19:18)
[2019-02-21 19:27] LABS: HEMATOCRIT 23.7 % (35.0-45.0); HEMOGLOBIN 8.2 g/dl (12.0-16.0); MEAN CORPUSCULAR HEMOGLOBIN 31.3 PG (27.0-31.0); MEAN CORPUSCULAR HGB CONC 34.5 g/dL (33.0-36.5); MEAN CORPUSCULAR VOLUME 90.8 FL (78-98); MEAN PLATELET VOLUME 8.5 FL (7.4-10.4); PLATELET COUNT 169 X10'3 (140-440); RED BLOOD COUNT 2.61 X10'6 (4.20-5.60); RED CELL DISTRIBUTION WIDTH 14.7 % (11.5-14.5); WHITE BLOOD COUNT 5.2 X10'3 (4.5-11.0)
[2019-02-21] MEDS: PREDNISOLONE SODIUM PHOSPHATE LEFTEYE SCH (20:00)
[2019-02-21] MEDS ORDERED: loperamide 2mg capsule PO PRN (20:00)
[2019-02-21] MEDS: atorvastatin 20mg tablet PO SCH (20:22)
[2019-02-21] MEDS: dorzolamide 2% ophthalmic drops 10ml RIGHTEYE SCH (20:23)
[2019-02-21] MEDS: brimonidine 0.2% 5 ML ophthalmic drops RIGHTEYE SCH (20:30)
--- NOTE | 2019-02-21 20:40 | NUR ---
Patient's own medications which include the Prednisolone eye drops and the Victoza will be brought in by the patient's in the morning. Pharmacy was notified and said it is ok to non-administer the Prednisolone eye drops for tonight rather than discontinuing the order since they will be brought in tomorrow.
[2019-02-21] MEDS: latanoprost 0.005% 2.5ml ophthalmic drops RIGHTEYE SCH (21:11)
[2019-02-21 22:00] VITALS: BP 114/56
[2019-02-21] MEDS: budesonide 0.5mg/2ml UD nebule IH SCH (23:24)
[2019-02-21] MEDS: albuterol 2.5 MG/3 ML nebule NEB SCH (23:24)
[2019-02-22] VITALS (13 sets, daily range): BP systolic 114–159; BP diastolic 48–66
[2019-02-22] MEDS: albuterol 2.5 MG/3 ML nebule NEB SCH ×4 (02:00→20:22)
[2019-02-22 02:02] LABS: ALBUMIN 3.2 G/DL (3.4-5.0); ANION GAP 7 (8-16); BLOOD UREA NITROGEN 27 MG/DL (7-18); BUN/CREATININE RATIO 24.5 (6.6-38.0); CALCIUM 8.7 MG/DL (8.5-10.1); CHLORIDE 103 MMOL/L (99-107); GLUCOSE 122 MG/DL (70-104); POTASSIUM 3.6 MMOL/L (3.5-5.1); SODIUM 139 MMOL/L (135-145); eGFR 50 ML/MIN
[2019-02-22 02:10] LABS: BASOPHILS # (AUTO) 0.1 X10'3 (0-0.2); BASOPHILS % (AUTO) 0.8 % (0-1); EOSINOPHILS # (AUTO) 0.3 X10'3 (0-0.9); EOSINOPHILS % (AUTO) 3.9 % (0-6); HEMATOCRIT 24.5 % (35.0-45.0); HEMOGLOBIN 8.4 g/dl (12.0-16.0); LYMPHOCYTES # (AUTO) 1.5 X10'3 (1.1-4.8); MEAN CORPUSCULAR HEMOGLOBIN 31.1 PG (27.0-31.0); MEAN CORPUSCULAR HGB CONC 34.2 g/dL (33.0-36.5); MEAN CORPUSCULAR VOLUME 90.9 FL (78-98); MEAN PLATELET VOLUME 8.6 FL (7.4-10.4); MONOCYTES # (AUTO) 0.6 X10'3 (0-0.9); MONOCYTES % (AUTO) 8.5 % (2-12); NEUTROPHILS # (AUTO) 4.8 X10'3 (1.8-7.7); NEUTROPHILS % (AUTO) 65.8 % (42-75); PLATELET COUNT 201 X10'3 (140-440); RED BLOOD COUNT 2.69 X10'6 (4.20-5.60); RED CELL DISTRIBUTION WIDTH 15.1 % (11.5-14.5); WHITE BLOOD COUNT 7.3 X10'3 (4.5-11.0)
[2019-02-22] MEDS: normal saline 1000ml 1,000 ML IV SCH ×3 (02:14→19:27)
--- NOTE | 2019-02-22 05:10 | NUR ---
Orientee documentation: I have reviewed and agree with all interventions, assessments performed and documented by Yaima MALDONADO. Orientee Medication Administration: For this medication-pass time frame, all medication were reviewed, dispensed, administered and documented per hospital policy by Yaima MALDONADO.
--- NOTE | 2019-02-22 06:24 | NUR ---
Problems reprioritized. Patient report given, questions answered & plan of care reviewed with Laurel RN.
--- NOTE | 2019-02-22 06:27 | NUR ---
Patient in room PCU 3024. I have received report from ERICA Goodman and ERICA Erwin and had the opportunity to ask questions and assume patient care. Pt is sleeping. Will continue to monitor.
[2019-02-22] MEDS: budesonide 0.5mg/2ml UD nebule IH SCH ×2 (07:21→20:22)
[2019-02-22] MEDS: levoTHYROXINE 112mcg tablet PO SCH (07:34)
[2019-02-22] MEDS: dorzolamide 2% ophthalmic drops 10ml RIGHTEYE SCH ×2 (07:35→20:13)
[2019-02-22] MEDS: brimonidine 0.2% 5 ML ophthalmic drops RIGHTEYE SCH ×2 (07:35→20:13)
[2019-02-22] MEDS: citalopram 20mg tablet PO SCH (07:41)
[2019-02-22] MEDS: loratadine 10mg tablet PO SCH (07:41)
[2019-02-22] MEDS: PREDNISOLONE SODIUM PHOSPHATE LEFTEYE SCH (07:41)
[2019-02-22] MEDS: gabapentin 300mg capsule PO SCH ×2 (07:42→19:18)
[2019-02-22] MEDS: montelukast 10mg tablet PO SCH (07:42)
[2019-02-22] MEDS: carVEDilol 3.125mg tablet PO SCH ×2 (07:42→19:18)
[2019-02-22] MEDS: multivitamins, therapeutics tablet PO SCH (07:42)
[2019-02-22] MEDS: LIRAGLUTIDE 0.6 MG/0.1 ML SQ SCH (07:42)
[2019-02-22] MEDS ORDERED: lisinopril 20mg tablet PO SCH (08:00)
[2019-02-22] MEDS ORDERED: HYDROchlorothiazide 25mg tablet PO SCH (08:00)
--- NOTE | 2019-02-22 08:46 | NUR ---
Sent to Dr Echevarria PAGER ID: [phone] MESSAGE: RE: Georgette Hinton [id number]. Pt takes Victoza at home. She is Type II Diabetic. Can we please get order for [facility] Accuchecks? - Laurel [phone]
--- NOTE | 2019-02-22 08:47 | NUR ---
Pt stated her will be bringing in her home meds this am 02/22/19 (prednisolone Na Ph gtts; victoza pen injector). She refused all her morning meds except her levothyroxine and eye drops because of her NPO status; stated she only takes her meds after she eats.
[2019-02-22 09:03] LABS: HEMOGLOBIN 7.2 g/dl (12.0-16.0); MEAN CORPUSCULAR HGB CONC 34.2 g/dL (33.0-36.5); MEAN CORPUSCULAR VOLUME 90.6 FL (78-98); MEAN PLATELET VOLUME 8.4 FL (7.4-10.4); PLATELET COUNT 170 X10'3 (140-440); RED BLOOD COUNT 2.33 X10'6 (4.20-5.60); WHITE BLOOD COUNT 5.3 X10'3 (4.5-11.0)
[2019-02-22 09:07] LABS: HEMATOCRIT 21.1 % (35.0-45.0)
[2019-02-22 13:54] LABS: HEMATOCRIT 25.5 % (35.0-45.0); HEMOGLOBIN 8.7 g/dl (12.0-16.0); MEAN CORPUSCULAR HEMOGLOBIN 30.8 PG (27.0-31.0); MEAN CORPUSCULAR HGB CONC 34.1 g/dL (33.0-36.5); MEAN CORPUSCULAR VOLUME 90.3 FL (78-98); PLATELET COUNT 175 X10'3 (140-440); RED BLOOD COUNT 2.82 X10'6 (4.20-5.60); RED CELL DISTRIBUTION WIDTH 15.4 % (11.5-14.5); WHITE BLOOD COUNT 5.4 X10'3 (4.5-11.0)
[2019-02-22] MEDS ORDERED: fentaNYL/PF 50MCG/1 ML 2ML syringe ONE (13:56)
[2019-02-22] MEDS ORDERED: LIDOcaine Viscous 15ml cup ONE (13:57)
[2019-02-22] MEDS ORDERED: MIDAZolam 5mg/5ml vial ONE (13:57)
--- NOTE | 2019-02-22 18:38 | NUR ---
Patient in room PCU 3024. I have received report from Laurel MALDONADO and had the opportunity to ask questions and assume patient care.
--- NOTE | 2019-02-22 18:50 | NUR ---
Problems reprioritized. Patient report given, questions answered & plan of care reviewed with ERICA Erwin and ERICA Goodman.
[2019-02-22 19:41] LABS: HEMATOCRIT 24.4 % (35.0-45.0); HEMOGLOBIN 8.3 g/dl (12.0-16.0); MEAN CORPUSCULAR HEMOGLOBIN 31.1 PG (27.0-31.0); MEAN CORPUSCULAR HGB CONC 34.1 g/dL (33.0-36.5); MEAN CORPUSCULAR VOLUME 91.2 FL (78-98); MEAN PLATELET VOLUME 8.2 FL (7.4-10.4); PLATELET COUNT 175 X10'3 (140-440); RED BLOOD COUNT 2.67 X10'6 (4.20-5.60); RED CELL DISTRIBUTION WIDTH 15.5 % (11.5-14.5); WHITE BLOOD COUNT 8.2 X10'3 (4.5-11.0)
[2019-02-22] MEDS: prednisoLONE acetate 1% ophth susp 5ml LEFTEYE SCH ×2 (20:00→20:12)
[2019-02-22] MEDS: atorvastatin 20mg tablet PO SCH (20:08)
[2019-02-22] MEDS: latanoprost 0.005% 2.5ml ophthalmic drops RIGHTEYE SCH (20:13)
[2019-02-23] VITALS (10 sets, daily range): BP systolic 114–149; BP diastolic 45–67
[2019-02-23 01:36] LABS: BASOPHILS % (AUTO) 0.7 % (0-1); EOSINOPHILS # (AUTO) 0.2 X10'3 (0-0.9); EOSINOPHILS % (AUTO) 2.9 % (0-6); HEMATOCRIT 22.6 % (35.0-45.0); HEMOGLOBIN 7.8 g/dl (12.0-16.0); LYMPHOCYTES # (AUTO) 1.7 X10'3 (1.1-4.8); LYMPHOCYTES % (AUTO) 24.4 % (21-51); MEAN CORPUSCULAR HEMOGLOBIN 30.9 PG (27.0-31.0); MEAN CORPUSCULAR HGB CONC 34.4 g/dL (33.0-36.5); MEAN CORPUSCULAR VOLUME 89.8 FL (78-98); MONOCYTES # (AUTO) 0.5 X10'3 (0-0.9); MONOCYTES % (AUTO) 7.7 % (2-12); NEUTROPHILS # (AUTO) 4.6 X10'3 (1.8-7.7); NEUTROPHILS % (AUTO) 64.3 % (42-75); PLATELET COUNT 164 X10'3 (140-440); RED BLOOD COUNT 2.52 X10'6 (4.20-5.60); RED CELL DISTRIBUTION WIDTH 15.5 % (11.5-14.5); WHITE BLOOD COUNT 7.1 X10'3 (4.5-11.0)
[2019-02-23 01:46] LABS: ALBUMIN 2.5 G/DL (3.4-5.0); ANION GAP 4 (8-16); BLOOD UREA NITROGEN 11 MG/DL (7-18); BUN/CREATININE RATIO 13.3 (6.6-38.0); CHLORIDE 110 MMOL/L (99-107); CREATININE 0.83 MG/DL (0.40-0.90); GLUCOSE 99 MG/DL (70-104); POTASSIUM 3.4 MMOL/L (3.5-5.1); SODIUM 142 MMOL/L (135-145); TOTAL CARBON DIOXIDE 28.2 MMOL/L (24-32); eGFR 70 ML/MIN
[2019-02-23] MEDS: albuterol 2.5 MG/3 ML nebule NEB SCH ×4 (02:00→20:03)
[2019-02-23] MEDS: normal saline 1000ml 1,000 ML IV SCH ×2 (04:54→16:06)
--- NOTE | 2019-02-23 06:36 | NUR ---
Problems reprioritized. Patient report given, questions answered & plan of care reviewed with Laurel RN.
[2019-02-23] MEDS: budesonide 0.5mg/2ml UD nebule IH SCH ×2 (06:55→20:03)
[2019-02-23 07:12] LABS: HEMATOCRIT 23.1 % (35.0-45.0); HEMOGLOBIN 7.8 g/dl (12.0-16.0); MEAN CORPUSCULAR HEMOGLOBIN 30.2 PG (27.0-31.0); MEAN CORPUSCULAR HGB CONC 33.5 g/dL (33.0-36.5); MEAN PLATELET VOLUME 7.9 FL (7.4-10.4); PLATELET COUNT 180 X10'3 (140-440); RED BLOOD COUNT 2.57 X10'6 (4.20-5.60); RED CELL DISTRIBUTION WIDTH 15.3 % (11.5-14.5); WHITE BLOOD COUNT 6.3 X10'3 (4.5-11.0)
[2019-02-23] MEDS: montelukast 10mg tablet PO SCH (08:00)
[2019-02-23] MEDS: citalopram 20mg tablet PO SCH (08:00)
[2019-02-23] MEDS: LIRAGLUTIDE 0.6 MG/0.1 ML SQ SCH (08:00)
[2019-02-23] MEDS: gabapentin 300mg capsule PO SCH ×2 (08:18→19:51)
[2019-02-23] MEDS: multivitamins, therapeutics tablet PO SCH (08:18)
[2019-02-23] MEDS: carVEDilol 3.125mg tablet PO SCH ×2 (08:18→19:51)
[2019-02-23] MEDS: levoTHYROXINE 112mcg tablet PO SCH (08:18)
[2019-02-23] MEDS: loratadine 10mg tablet PO SCH (08:18)
[2019-02-23] MEDS: dorzolamide 2% ophthalmic drops 10ml RIGHTEYE SCH ×2 (08:19→19:52)
[2019-02-23] MEDS: prednisoLONE acetate 1% ophth susp 5ml LEFTEYE SCH ×2 (08:19→19:52)
[2019-02-23] MEDS: brimonidine 0.2% 5 ML ophthalmic drops RIGHTEYE SCH ×2 (08:20→19:52)
[2019-02-23 13:08] LABS: HEMATOCRIT 23.4 % (35.0-45.0); HEMOGLOBIN 7.8 g/dl (12.0-16.0); MEAN CORPUSCULAR HEMOGLOBIN 30.5 PG (27.0-31.0); MEAN CORPUSCULAR HGB CONC 33.4 g/dL (33.0-36.5); MEAN CORPUSCULAR VOLUME 91.4 FL (78-98); MEAN PLATELET VOLUME 7.9 FL (7.4-10.4); PLATELET COUNT 190 X10'3 (140-440); RED BLOOD COUNT 2.57 X10'6 (4.20-5.60); RED CELL DISTRIBUTION WIDTH 15.7 % (11.5-14.5); WHITE BLOOD COUNT 6.7 X10'3 (4.5-11.0)
--- NOTE | 2019-02-23 17:13 | NUR ---
Sent to Dr Echevarria PAGER ID: [phone] MESSAGE: RE: Georgette Hinton [id number]. Are we going to transfuse her? She also needs K replacement orders, K was 3.4 this AM. - Laurel [phone]
--- NOTE | 2019-02-23 17:15 | NUR ---
Sent to Dr Echevarria PAGER ID: [phone] MESSAGE: RE: Georgette Hinton [id number]. Also, records are here from [facility]. -Lauerl [phone]
--- NOTE | 2019-02-23 18:34 | NUR ---
Patient in room PCU 3024. I have received report from Laurel MALDONADO and had the opportunity to ask questions and assume patient care.
--- NOTE | 2019-02-23 18:52 | NUR ---
Problems reprioritized. Patient report given, questions answered & plan of care reviewed with ERICA Goodman and ERICA Erwin.
--- NOTE | 2019-02-23 20:00 | NUR ---
Order was put in for 2 units of blood, however MD actually only ordered one unit. When order was edited to change the quantity to one the blood bank denied the request to cancel the second unit and said that they will just keep it on standby in case she does end up needing another unit at some point before her type and screen expires.
[2019-02-23] MEDS: latanoprost 0.005% 2.5ml ophthalmic drops RIGHTEYE SCH (20:01)
[2019-02-23] MEDS: atorvastatin 20mg tablet PO SCH (20:03)
--- NOTE | 2019-02-23 22:45 | NUR ---
Patient received one unit of blood and tolerated well with no issues. Will check CBC in the AM. Her stool is looking much better than the previous nights in that there is no longer visible blood in it s/p colonoscopy with cauterization of bleed.
[2019-02-24 02:00] VITALS: BP 130/40
[2019-02-24] MEDS: albuterol 2.5 MG/3 ML nebule NEB SCH ×4 (03:02→20:31)
[2019-02-24] MEDS: normal saline 1000ml 1,000 ML IV SCH (04:05)
[2019-02-24 05:51] LABS: BASOPHILS % (AUTO) 0.4 % (0-1); EOSINOPHILS # (AUTO) 0.2 X10'3 (0-0.9); EOSINOPHILS % (AUTO) 3.2 % (0-6); HEMATOCRIT 26.6 % (35.0-45.0); LYMPHOCYTES # (AUTO) 1.5 X10'3 (1.1-4.8); LYMPHOCYTES % (AUTO) 20.3 % (21-51); MEAN CORPUSCULAR HEMOGLOBIN 31.1 PG (27.0-31.0); MEAN CORPUSCULAR HGB CONC 33.7 g/dL (33.0-36.5); MEAN CORPUSCULAR VOLUME 92.2 FL (78-98); MEAN PLATELET VOLUME 8.1 FL (7.4-10.4); MONOCYTES # (AUTO) 0.6 X10'3 (0-0.9); MONOCYTES % (AUTO) 7.6 % (2-12); NEUTROPHILS # (AUTO) 5.1 X10'3 (1.8-7.7); NEUTROPHILS % (AUTO) 68.5 % (42-75); PLATELET COUNT 174 X10'3 (140-440); RED BLOOD COUNT 2.89 X10'6 (4.20-5.60); RED CELL DISTRIBUTION WIDTH 15.2 % (11.5-14.5); WHITE BLOOD COUNT 7.5 X10'3 (4.5-11.0)
[2019-02-24 06:02] LABS: ALBUMIN 2.6 G/DL (3.4-5.0); ANION GAP 8 (8-16); BLOOD UREA NITROGEN 9 MG/DL (7-18); BUN/CREATININE RATIO 11.1 (6.6-38.0); CHLORIDE 113 MMOL/L (99-107); CREATININE 0.81 MG/DL (0.40-0.90); GLUCOSE 113 MG/DL (70-104); POTASSIUM 3.3 MMOL/L (3.5-5.1); SODIUM 146 MMOL/L (135-145); TOTAL CARBON DIOXIDE 25.4 MMOL/L (24-32); eGFR 72 ML/MIN
--- NOTE | 2019-02-24 06:30 | NUR ---
Problems reprioritized. Patient report given, questions answered & plan of care reviewed with Esperanza MALDONADO.
--- NOTE | 2019-02-24 06:31 | NUR ---
Patient in room PCU 3024. I have received report from Yaima MALDONADO and Maxine MALDONADO and had the opportunity to ask questions and assume patient care.
--- NOTE | 2019-02-24 06:33 | NUR ---
Patient in room PCU 3024. I have received report from Maxine MALDONADO and had the opportunity to ask questions and assume patient care.
[2019-02-24 07:00] VITALS: BP 143/58
[2019-02-24] MEDS: dorzolamide 2% ophthalmic drops 10ml RIGHTEYE SCH ×2 (08:10→20:11)
[2019-02-24] MEDS: prednisoLONE acetate 1% ophth susp 5ml LEFTEYE SCH ×2 (08:10→20:10)
[2019-02-24] MEDS: brimonidine 0.2% 5 ML ophthalmic drops RIGHTEYE SCH ×2 (08:11→20:11)
[2019-02-24] MEDS: levoTHYROXINE 112mcg tablet PO SCH (08:11)
[2019-02-24] MEDS: multivitamins, therapeutics tablet PO SCH (08:12)
[2019-02-24] MEDS: loratadine 10mg tablet PO SCH (08:12)
[2019-02-24] MEDS: citalopram 20mg tablet PO SCH (08:12)
[2019-02-24] MEDS: montelukast 10mg tablet PO SCH (08:12)
[2019-02-24] MEDS: gabapentin 300mg capsule PO SCH ×2 (08:12→20:11)
[2019-02-24] MEDS: carVEDilol 3.125mg tablet PO SCH ×2 (08:12→20:11)
[2019-02-24] MEDS: LIRAGLUTIDE 0.6 MG/0.1 ML PEN.INJCTR SQ SCH (08:15)
[2019-02-24] MEDS ORDERED: potassium Cl 20 mEq SR tablet PO STA (08:24)
[2019-02-24] MEDS ORDERED: furosemide 40mg/4ml inj IV ONE (08:25)
[2019-02-24] MEDS: budesonide 0.5mg/2ml UD nebule IH SCH ×2 (08:58→20:31)
--- NOTE | 2019-02-24 09:56 | NUR ---
PAGER ID: [phone] MESSAGE: [phone] Rosey Hinton Refusing Lasix. Do you still want to give the 40mEq of potassium? K level is at 3.3 Thanks Kian OROZCO
--- NOTE | 2019-02-24 10:28 | NUR ---
PIV at R AC 20G, with resistance noted on flushing. No venous return on aspiration. IV start atempted x2; unsuccessful. Current IV dressing changed and saline locked. PICC RN notified.
[2019-02-24 13:20] VITALS: BP 132/59
[2019-02-24 15:00] VITALS: BP 138/68
--- NOTE | 2019-02-24 17:51 | NUR ---
Orientee documentation: I have reviewed and agree with interventions, assessments performed and documented by Liset MADLONADO. Orientee Medication Administration: For this medication-pass time frame, medication were reviewed, dispensed, administered and documented per hospital policy by Liset MALDONADO
--- NOTE | 2019-02-24 18:30 | NUR ---
Problems reprioritized. Patient report given, questions answered & plan of care reviewed with Marlene MALDONADO.
--- NOTE | 2019-02-24 18:47 | NUR ---
Patient in room PCU 3024. I have received report from Esperanza MALDONADO and Kian MALDONADO and had the opportunity to ask questions and assume patient care.
[2019-02-24 19:00] VITALS: BP 145/62
[2019-02-24] MEDS: latanoprost 0.005% 2.5ml ophthalmic drops RIGHTEYE SCH (20:11)
[2019-02-24] MEDS: atorvastatin 20mg tablet PO SCH (20:11)
[2019-02-24 23:00] VITALS: BP 146/53
[2019-02-25 03:00] VITALS: BP 166/69
[2019-02-25] MEDS: albuterol 2.5 MG/3 ML nebule NEB SCH ×2 (03:03→07:42)
[2019-02-25 05:32] LABS: BASOPHILS % (AUTO) 0.3 % (0-1); EOSINOPHILS # (AUTO) 0.3 X10'3 (0-0.9); EOSINOPHILS % (AUTO) 2.9 % (0-6); HEMATOCRIT 28.1 % (35.0-45.0); HEMOGLOBIN 9.6 g/dl (12.0-16.0); LYMPHOCYTES # (AUTO) 0.9 X10'3 (1.1-4.8); LYMPHOCYTES % (AUTO) 10.9 % (21-51); MEAN CORPUSCULAR HEMOGLOBIN 31.3 PG (27.0-31.0); MEAN CORPUSCULAR HGB CONC 34.1 g/dL (33.0-36.5); MEAN CORPUSCULAR VOLUME 91.7 FL (78-98); MEAN PLATELET VOLUME 7.8 FL (7.4-10.4); MONOCYTES # (AUTO) 0.5 X10'3 (0-0.9); MONOCYTES % (AUTO) 5.9 % (2-12); PLATELET COUNT 192 X10'3 (140-440); RED BLOOD COUNT 3.06 X10'6 (4.20-5.60); RED CELL DISTRIBUTION WIDTH 15.6 % (11.5-14.5); WHITE BLOOD COUNT 8.7 X10'3 (4.5-11.0)
[2019-02-25 05:37] LABS: ALBUMIN 2.9 G/DL (3.4-5.0); ANION GAP 8 (8-16); BLOOD UREA NITROGEN 7 MG/DL (7-18); BUN/CREATININE RATIO 8.1 (6.6-38.0); CALCIUM 8.6 MG/DL (8.5-10.1); CHLORIDE 108 MMOL/L (99-107); CREATININE 0.86 MG/DL (0.40-0.90); GLUCOSE 134 MG/DL (70-104); POTASSIUM 3.5 MMOL/L (3.5-5.1); SODIUM 141 MMOL/L (135-145); TOTAL CARBON DIOXIDE 25.2 MMOL/L (24-32); eGFR 67 ML/MIN
[2019-02-25 06:00] VITALS: BP 143/61
--- NOTE | 2019-02-25 06:33 | NUR ---
Problems reprioritized. Patient report given, questions answered & plan of care reviewed with Esperanza MALDONADO and Kian MALDONADO.
--- NOTE | 2019-02-25 06:35 | NUR ---
Patient in room PCU 3024. I have received report from Marlene MALDONADO and had the opportunity to ask questions and assume patient care.
[2019-02-25] MEDS: levoTHYROXINE 112mcg tablet PO SCH (07:08)
[2019-02-25] MEDS: dorzolamide 2% ophthalmic drops 10ml RIGHTEYE SCH (07:16)
[2019-02-25] MEDS: brimonidine 0.2% 5 ML ophthalmic drops RIGHTEYE SCH (07:16)
[2019-02-25] MEDS: prednisoLONE acetate 1% ophth susp 5ml LEFTEYE SCH (07:16)
[2019-02-25] MEDS: LIRAGLUTIDE 0.6 MG/0.1 ML PEN.INJCTR SQ SCH (07:17)
[2019-02-25] MEDS: budesonide 0.5mg/2ml UD nebule IH SCH (07:41)
[2019-02-25] MEDS: multivitamins, therapeutics tablet PO SCH (08:32)
[2019-02-25] MEDS: montelukast 10mg tablet PO SCH (08:32)
[2019-02-25] MEDS: loratadine 10mg tablet PO SCH (08:32)
[2019-02-25] MEDS: citalopram 20mg tablet PO SCH (08:32)
[2019-02-25] MEDS: gabapentin 300mg capsule PO SCH (08:33)
[2019-02-25] MEDS: carVEDilol 3.125mg tablet PO SCH (08:33)
[2019-02-25 11:00] VITALS: BP 154/67
--- NOTE | 2019-02-25 12:12 | NUR ---
Initial: Pt admit with GIB secondary to angiodysplasia of ascending colon now s/p colonoscopy. Patient's diet just advanced to CHO controlled from liquid diet, documented with 75-100% meeting nutrient needs. Pt with A1c 7.[address] 12/07/18 and provided with written and verbal DM ed with referral to outpatient DM class and RD contact information, no further education warranted at this time. LBM 02/24. Per MD notes pt denies blood in stool, N/V, or abdominal pain. No edema or wounds. No nutrition diagnosis at this time. Will continue to follow. Recommendations: 1) Continue with CHO controlled diet 2) Wt per rx Addendum: 02/25/19 at [address] Amended: Links added.
--- NOTE | 2019-02-25 14:00 | NUR ---
Tele monitor removed, IV discontinued with cannula intact. Transported to private vehicle via wheelchair, accompanied by and friend. Pt. discharged to home with belongings and home meds, in stable condition.
--- NOTE | 2019-02-25 15:25 | NUR ---
Orientee documentation: I have reviewed and agree with interventions, assessments performed and documented by Liset MALDONADO. Orientee Medication Administration: For this medication-pass time frame, medication were reviewed, dispensed, administered and documented per hospital policy by Liset MALDONADO.
== END 2019-02-25 13:45 | disposition home or self-care (01) | DRG 377 ==
LOC: ER 10:10 → PCU 3S 14:07 → CMPBEDREQ 02-22 20:59
PROVIDERS: ADMIT Family Medicine; ATTEND Family Medicine
PROC: 30233N1 Transfusion of Nonautologous Red Blood Cells into Peripheral Vein, Percutaneous Approach (ICD-10-PCS; principal; 2019-02-22)
PROC: 0W3P8ZZ Control Bleeding in Gastrointestinal Tract, Via Natural or Artificial Opening Endoscopic (ICD-10-PCS; 2019-02-22)
PROC: 30233N1 Transfusion of Nonautologous Red Blood Cells into Peripheral Vein, Percutaneous Approach (ICD-10-PCS; 2019-02-23)
DX: K55.21 Angiodysplasia of colon with hemorrhage (principal); N17.0 Acute kidney failure with tubular necrosis; D62 Acute posthemorrhagic anemia; D68.69 Other thrombophilia; H40.9 Unspecified glaucoma; K57.30 Diverticulosis of large intestine without perforation or abscess without bleeding; I48.2 Chronic atrial fibrillation; E03.9 Hypothyroidism, unspecified; E11.22 Type 2 diabetes mellitus with diabetic chronic kidney disease; T45.515A Adverse effect of anticoagulants, initial encounter; E11.42 Type 2 diabetes mellitus with diabetic polyneuropathy; E11.51 Type 2 diabetes mellitus with diabetic peripheral angiopathy without gangrene; G47.30 Sleep apnea, unspecified; J44.9 Chronic obstructive pulmonary disease, unspecified; G89.4 Chronic pain syndrome; I25.10 Atherosclerotic heart disease of native coronary artery without angina pectoris; N18.9 Chronic kidney disease, unspecified; I25.2 Old myocardial infarction; Z86.711 Personal history of pulmonary embolism; Z95.1 Presence of aortocoronary bypass graft; Z88.8 Allergy status to other drugs, medicaments and biological substances; Y92.89 Other specified places as the place of occurrence of the external cause; Z79.899 Other long term (current) drug therapy; Z79.82 Long term (current) use of aspirin
CPT/HCPCS: 36415; 45382; 74176; 80048; 80053; 82948; 85025; 85027; 85610; 86885; 86900; 86901; 86920; 87081; 94640; 94760; 96360; 99152; 99153; 99285; A4620; G0378; J1940; J2250; J3010; J3430; J7030; J7040; J7626; P9016

== ENCOUNTER 2019-05-02 13:37 | Emergency (ER) | payer MEDICARE, MEDICAID ==
[~2019-05-02] VITALS: Ht 157.5 cm; Wt 93.6 kg
[~2019-05-02 13:37] MED LIST changes: -CLOP75TA15 PO; -COU1T PO; -COU5T PO; +INSU100I25 SQ; -INSU100I31 SQ
[2019-05-02] MEDS ORDERED: naproxen 500mg tablet PO ONE (14:40)
[2019-05-02] MEDS ORDERED: cyclobenzaprine 10mg tablet PO ONE (14:40)
[2019-05-02] MEDS ORDERED: HYDROcodone/acetaminophen 10/325mg tab PO ONE (14:40)
[2019-05-02] MEDS ORDERED: BUPIVAcaine/PF 2.5mg/ml (0.25%) 10ml vial IJ ONE (14:45)
[2019-05-02] MEDS ORDERED: LIDOcaine 1% W/epiNEPHrine 1:200,000 10ml vial IJ ONE (14:45)
[2019-05-02] MEDS ORDERED: CYCL-1 PO (16:10)
[2019-05-02] MEDS ORDERED: NAPR-56 PO (16:10)
[2019-05-02] MEDS ORDERED: HYDR-4383 PO (16:10)
[2019-05-02 16:17] VITALS: BP 128/65
== END 2019-05-02 16:15 | disposition home or self-care (01) ==
LOC: ER 13:38
DX: M54.2 Cervicalgia (principal); M79.18 Myalgia, other site; E11.42 Type 2 diabetes mellitus with diabetic polyneuropathy; I48.91 Unspecified atrial fibrillation; I25.10 Atherosclerotic heart disease of native coronary artery without angina pectoris; I25.2 Old myocardial infarction; J44.9 Chronic obstructive pulmonary disease, unspecified; G47.30 Sleep apnea, unspecified; E11.22 Type 2 diabetes mellitus with diabetic chronic kidney disease; N18.9 Chronic kidney disease, unspecified; E03.9 Hypothyroidism, unspecified; G89.29 Other chronic pain; Z95.1 Presence of aortocoronary bypass graft; Z90.49 Acquired absence of other specified parts of digestive tract; Z98.61 Coronary angioplasty status; Z56.0 Unemployment, unspecified; Z88.8 Allergy status to other drugs, medicaments and biological substances; Z79.82 Long term (current) use of aspirin; Z79.4 Long term (current) use of insulin; Z79.899 Other long term (current) drug therapy; Z86.711 Personal history of pulmonary embolism
CPT/HCPCS: 20552; 72040; 99284; J3490

== ENCOUNTER 2019-07-11 13:38 | Emergency (ER) | payer MEDICARE, MEDICAID ==
[~2019-07-11] VITALS: Ht 157.5 cm; Wt 90.0 kg
[~2019-07-11 13:38] MED LIST changes: +CYCL-1 PO; +HYDR-4383 PO
[2019-07-11] MEDS ORDERED: normal saline 1000ML IV soln IVB ONE ×2 (13:50→15:00)
[2019-07-11 14:16] LABS: BASOPHILS % (AUTO) 0.3 % (0-1); EOSINOPHILS # (AUTO) 0.1 X10'3 (0-0.9); EOSINOPHILS % (AUTO) 1.4 % (0-6); HEMATOCRIT 38.8 % (35.0-45.0); HEMOGLOBIN 13.2 g/dl (12.0-16.0); LYMPHOCYTES # (AUTO) 1.1 X10'3 (1.1-4.8); LYMPHOCYTES % (AUTO) 15.3 % (21-51); MEAN CORPUSCULAR HGB CONC 33.9 g/dL (33.0-36.5); MEAN CORPUSCULAR VOLUME 88.7 FL (78-98); MEAN PLATELET VOLUME 8.4 FL (7.4-10.4); MONOCYTES # (AUTO) 0.7 X10'3 (0-0.9); MONOCYTES % (AUTO) 9.6 % (2-12); NEUTROPHILS # (AUTO) 5.2 X10'3 (1.8-7.7); NEUTROPHILS % (AUTO) 73.4 % (42-75); PLATELET COUNT 163 X10'3 (140-440); RED BLOOD COUNT 4.38 X10'6 (4.20-5.60); RED CELL DISTRIBUTION WIDTH 15.5 % (11.5-14.5); WHITE BLOOD COUNT 7.1 X10'3 (4.5-11.0)
[2019-07-11 14:32] LABS: ALANINE AMINOTRANSFERASE 27 U/L (12-78); ALBUMIN 3.4 G/DL (3.4-5.0); ALKALINE PHOSPHATASE 81 IU/L (46-116); ANION GAP 12 (8-16); ASPARTATE AMINO TRANSFERASE 24 U/L (10-37); BILIRUBIN,TOTAL 0.5 MG/DL (0.1-1.0); BLOOD UREA NITROGEN 26 MG/DL (7-18); CALCIUM 9.2 MG/DL (8.5-10.1); CHLORIDE 100 MMOL/L (99-107); CREATININE 1.24 MG/DL (0.40-0.90); GLUCOSE 227 MG/DL (70-104); POTASSIUM 3.2 MMOL/L (3.5-5.1); SODIUM 137 MMOL/L (135-145); TOTAL CARBON DIOXIDE 24.6 MMOL/L (24-32); TOTAL PROTEIN 6.9 G/DL (6.4-8.2); eGFR 44 ML/MIN
[2019-07-11 14:36] LABS: LIPASE 2143 U/L (73-393)
[2019-07-11] MEDS ORDERED: CIPR-259 PO (15:30)
[2019-07-11] MEDS ORDERED: METR500T PO (15:30)
[2019-07-11] MEDS ORDERED: acetaminophen 325mg tablet PO ONE (15:40)
[2019-07-11 16:29] VITALS: BP 143/66
== END 2019-07-11 16:36 | disposition home or self-care (01) ==
LOC: ER 13:39
DX: R10.32 Left lower quadrant pain (principal); R19.7 Diarrhea, unspecified; R50.9 Fever, unspecified; E11.42 Type 2 diabetes mellitus with diabetic polyneuropathy; I48.91 Unspecified atrial fibrillation; I25.10 Atherosclerotic heart disease of native coronary artery without angina pectoris; I25.2 Old myocardial infarction; J44.9 Chronic obstructive pulmonary disease, unspecified; G47.30 Sleep apnea, unspecified; Z86.711 Personal history of pulmonary embolism; E03.9 Hypothyroidism, unspecified; E11.22 Type 2 diabetes mellitus with diabetic chronic kidney disease; N18.9 Chronic kidney disease, unspecified; G89.29 Other chronic pain; Z98.61 Coronary angioplasty status; Z90.49 Acquired absence of other specified parts of digestive tract; Z95.1 Presence of aortocoronary bypass graft; Z56.0 Unemployment, unspecified; Z98.890 Other specified postprocedural states; Z88.8 Allergy status to other drugs, medicaments and biological substances; Z79.82 Long term (current) use of aspirin; Z79.4 Long term (current) use of insulin; Z79.899 Other long term (current) drug therapy
CPT/HCPCS: 36415; 74176; 80053; 83690; 85025; 96360; 96361; 99284; J7030

== ENCOUNTER 2019-10-03 17:16 | Emergency (ER) | payer MEDICARE, MEDICAID ==
[~2019-10-03] VITALS: Ht 157.5 cm; Wt 89.0 kg
[~2019-10-03 17:16] MED LIST changes: -MONT10TA24 PO; +MONT10TA26 PO
[2019-10-03 17:42] VITALS: BP 103/51
[2019-10-03] MEDS ORDERED: prednisone 10mg tablet PO STA (19:47)
[2019-10-03] MEDS ORDERED: azithromycin 250mg tablet PO ONE (19:50)
[2019-10-03] MEDS ORDERED: predniSONE 20 mg tablet PO STA (19:59)
[2019-10-03] MEDS ORDERED: PRED20TA PO (20:42)
[2019-10-03] MEDS ORDERED: AZIT250T83 PO (20:42)
== END 2019-10-03 20:50 | disposition home or self-care (01) ==
LOC: ER 17:17
DX: R05 Cough (principal); E11.42 Type 2 diabetes mellitus with diabetic polyneuropathy; I48.91 Unspecified atrial fibrillation; I25.10 Atherosclerotic heart disease of native coronary artery without angina pectoris; I25.2 Old myocardial infarction; J44.9 Chronic obstructive pulmonary disease, unspecified; G47.30 Sleep apnea, unspecified; E11.22 Type 2 diabetes mellitus with diabetic chronic kidney disease; N18.9 Chronic kidney disease, unspecified; E03.9 Hypothyroidism, unspecified; G89.29 Other chronic pain; Z86.711 Personal history of pulmonary embolism; Z98.61 Coronary angioplasty status; Z90.49 Acquired absence of other specified parts of digestive tract; Z95.1 Presence of aortocoronary bypass graft; Z98.890 Other specified postprocedural states
CPT/HCPCS: 71045; 99284; J7512

== ENCOUNTER 2020-10-25 10:34 | Emergency (ER) | payer BC, MEDICAID ==
[~2020-10-25] VITALS: Ht 157.5 cm; Wt 92.2 kg
[~2020-10-25 10:34] MED LIST changes: +LISI40TA13 PO; -LISI40TA4 PO; -MONT10TA26 PO; +MONT10TA32 PO
[2020-10-25 11:06] VITALS: BP 145/62
[2020-10-25] MEDS ORDERED: predniSONE 20 mg tablet PO ONE (11:10)
[2020-10-25] MEDS ORDERED: albuterol 2.5 MG/3 ML nebule NEB ONE (11:10)
--- NOTE | 2020-10-25 11:11 | NUR ---
SEEN IN TRIAGE WITH DR. BOYD. AFTER TRIAGE PATIENT TAKEN TO AMBULANCE BAY TO R/[facility]
[2020-10-25] MEDS ORDERED: DOXYCYCLINE 100MG CAPSULE PO STA (12:30)
[2020-10-25] MEDS ORDERED: DOXY100C2 PO (12:32)
[2020-10-25] MEDS ORDERED: PRED20TA PO (12:32)
--- NOTE | 2020-10-25 12:52 | NUR ---
OK TO CXL EKG PER DR BOYD
== END 2020-10-25 12:53 | disposition home or self-care (01) ==
LOC: ER 10:36
DX: J20.9 Acute bronchitis, unspecified (principal); R05 Cough; R50.9 Fever, unspecified; E11.42 Type 2 diabetes mellitus with diabetic polyneuropathy; I48.91 Unspecified atrial fibrillation; I25.10 Atherosclerotic heart disease of native coronary artery without angina pectoris; I25.2 Old myocardial infarction; J44.9 Chronic obstructive pulmonary disease, unspecified; E11.22 Type 2 diabetes mellitus with diabetic chronic kidney disease; N18.9 Chronic kidney disease, unspecified; E03.9 Hypothyroidism, unspecified; G89.29 Other chronic pain; Z86.711 Personal history of pulmonary embolism; Z90.89 Acquired absence of other organs; Z98.890 Other specified postprocedural states; Z56.0 Unemployment, unspecified; Z88.8 Allergy status to other drugs, medicaments and biological substances; Z79.82 Long term (current) use of aspirin; Z79.2 Long term (current) use of antibiotics; Z79.4 Long term (current) use of insulin; Z79.899 Other long term (current) drug therapy
CPT/HCPCS: 71046; 94640; 99283; J7512

== ENCOUNTER 2021-08-03 19:00 | Emergency (ER) | payer BC, MEDICAID ==
[~2021-08-03] VITALS: Ht 157.5 cm; Wt 85.0 kg
[~2021-08-03 19:00] MED LIST changes: +MONT-40 PO; -MONT10TA32 PO
[2021-08-03] MEDS ORDERED: HYDROcodone/acetaminophen 10/325mg tab PO ONE (20:15)
[2021-08-03 21:03] LABS: BASOPHILS # (AUTO) 0.1 X10'3 (0-0.2); BASOPHILS % (AUTO) 0.6 % (0-1); EOSINOPHILS # (AUTO) 0.1 X10'3 (0-0.9); EOSINOPHILS % (AUTO) 1.4 % (0-6); HEMATOCRIT 38.1 % (35.0-45.0); HEMOGLOBIN 12.8 g/dl (12.0-16.0); LYMPHOCYTES # (AUTO) 0.8 X10'3 (1.1-4.8); LYMPHOCYTES % (AUTO) 9.9 % (21-51); MEAN CORPUSCULAR HEMOGLOBIN 30.1 PG (27.0-31.0); MEAN CORPUSCULAR HGB CONC 33.6 g/dL (33.0-36.5); MEAN CORPUSCULAR VOLUME 89.8 FL (78-98); MEAN PLATELET VOLUME 8.6 FL (7.4-10.4); MONOCYTES # (AUTO) 0.7 X10'3 (0-0.9); NEUTROPHILS # (AUTO) 6.7 X10'3 (1.8-7.7); NEUTROPHILS % (AUTO) 80.1 % (42-75); PLATELET COUNT 183 X10'3 (140-440); RED BLOOD COUNT 4.24 X10'6 (4.20-5.60); RED CELL DISTRIBUTION WIDTH 14.4 % (11.5-14.5); WHITE BLOOD COUNT 8.3 X10'3 (4.5-11.0)
[2021-08-03 21:10] LABS: ALANINE AMINOTRANSFERASE 19 U/L (12-78); ALBUMIN/GLOBULIN RATIO 0.8 (1.1-1.5); ALKALINE PHOSPHATASE 87 IU/L (46-116); ANION GAP 10 (8-16); ASPARTATE AMINO TRANSFERASE 15 U/L (10-37); BILIRUBIN,TOTAL 0.4 MG/DL (0.1-1.0); BLOOD UREA NITROGEN 29 MG/DL (7-18); BUN/CREATININE RATIO 20.6 (6.6-38.0); CHLORIDE 102 MMOL/L (99-107); CREATININE 1.41 MG/DL (0.40-0.90); GLUCOSE 233 MG/DL (70-104); POTASSIUM 3.4 MMOL/L (3.5-5.1); SODIUM 141 MMOL/L (135-145); TOTAL CARBON DIOXIDE 28.6 MMOL/L (24-32); TOTAL PROTEIN 6.6 G/DL (6.4-8.2); eGFR 37 ML/MIN
[2021-08-03] MEDS ORDERED: CEPH-585 PO (21:36)
[2021-08-03] MEDS ORDERED: HYDR-3973 PO (21:36)
[2021-08-04 00:39] VITALS: BP 103/52
== END 2021-08-04 01:14 | disposition home or self-care (01) ==
LOC: ER 19:02
DX: I73.9 Peripheral vascular disease, unspecified (principal); M79.671 Pain in right foot; M79.674 Pain in right toe(s); E11.22 Type 2 diabetes mellitus with diabetic chronic kidney disease; N18.9 Chronic kidney disease, unspecified; E11.42 Type 2 diabetes mellitus with diabetic polyneuropathy; I48.91 Unspecified atrial fibrillation; I25.10 Atherosclerotic heart disease of native coronary artery without angina pectoris; I25.2 Old myocardial infarction; J44.9 Chronic obstructive pulmonary disease, unspecified; E03.9 Hypothyroidism, unspecified; G89.29 Other chronic pain; Z86.711 Personal history of pulmonary embolism; Z90.89 Acquired absence of other organs; Z98.890 Other specified postprocedural states; Z56.0 Unemployment, unspecified; Z88.8 Allergy status to other drugs, medicaments and biological substances; Z79.82 Long term (current) use of aspirin; Z79.2 Long term (current) use of antibiotics; Z79.4 Long term (current) use of insulin; Z79.899 Other long term (current) drug therapy
CPT/HCPCS: 36415; 80053; 85025; 93926; 99284

== ENCOUNTER 2021-08-26 21:49 | Emergency (ER) | payer BC, MEDICAID ==
[~2021-08-26] VITALS: Ht 157.5 cm; Wt 85.5 kg
[~2021-08-26 21:49] MED LIST changes: +CEPH-585 PO; +HYDR-3973 PO
[2021-08-26 22:05] VITALS: BP 158/71
[2021-08-27] MEDS ORDERED: ondansetron/PF 4mg/2ml inj IV ONE (02:15)
[2021-08-27] MEDS ORDERED: morphine 4 MG/ML inj SYRINge IV ONE (02:15)
[2021-08-27 02:59] LABS: BASOPHILS # (AUTO) 0.1 X10'3 (0-0.2); BASOPHILS % (AUTO) 0.8 % (0-1); EOSINOPHILS # (AUTO) 0.2 X10'3 (0-0.9); EOSINOPHILS % (AUTO) 2.6 % (0-6); HEMATOCRIT 31.3 % (35.0-45.0); HEMOGLOBIN 10.4 g/dl (12.0-16.0); LYMPHOCYTES # (AUTO) 1.2 X10'3 (1.1-4.8); LYMPHOCYTES % (AUTO) 14.4 % (21-51); MEAN CORPUSCULAR HEMOGLOBIN 29.5 PG (27.0-31.0); MEAN CORPUSCULAR HGB CONC 33.3 g/dL (33.0-36.5); MEAN CORPUSCULAR VOLUME 88.7 FL (78-98); MEAN PLATELET VOLUME 7.9 FL (7.4-10.4); MONOCYTES # (AUTO) 0.9 X10'3 (0-0.9); MONOCYTES % (AUTO) 10.9 % (2-12); NEUTROPHILS # (AUTO) 5.8 X10'3 (1.8-7.7); NEUTROPHILS % (AUTO) 71.3 % (42-75); PLATELET COUNT 287 X10'3 (140-440); RED BLOOD COUNT 3.53 X10'6 (4.20-5.60); RED CELL DISTRIBUTION WIDTH 14.8 % (11.5-14.5); WHITE BLOOD COUNT 8.2 X10'3 (4.5-11.0)
[2021-08-27 03:08] LABS: ALBUMIN 2.8 G/DL (3.4-5.0); ANION GAP 8 (8-16); BLOOD UREA NITROGEN 22 MG/DL (7-18); BUN/CREATININE RATIO 18.3 (6.6-38.0); CALCIUM 9.5 MG/DL (8.5-10.1); CHLORIDE 99 MMOL/L (99-107); GLUCOSE 128 MG/DL (70-104); POTASSIUM 3.1 MMOL/L (3.5-5.1); SODIUM 136 MMOL/L (135-145); TOTAL CARBON DIOXIDE 29.1 MMOL/L (24-32); eGFR 45 ML/MIN
== END 2021-08-27 05:52 | disposition home or self-care (01) ==
LOC: ER 21:49
DX: M54.50 Low back pain, unspecified (principal); G89.29 Other chronic pain; M62.838 Other muscle spasm; I48.91 Unspecified atrial fibrillation; I25.10 Atherosclerotic heart disease of native coronary artery without angina pectoris; I25.2 Old myocardial infarction; J44.9 Chronic obstructive pulmonary disease, unspecified; G47.30 Sleep apnea, unspecified; E11.43 Type 2 diabetes mellitus with diabetic autonomic (poly)neuropathy; E11.22 Type 2 diabetes mellitus with diabetic chronic kidney disease; I12.9 Hypertensive chronic kidney disease with stage 1 through stage 4 chronic kidney disease, or unspecified chronic kidney disease; N18.9 Chronic kidney disease, unspecified; E03.9 Hypothyroidism, unspecified; Z87.01 Personal history of pneumonia (recurrent); Z95.5 Presence of coronary angioplasty implant and graft; Z90.49 Acquired absence of other specified parts of digestive tract; Z56.0 Unemployment, unspecified; Z79.899 Other long term (current) drug therapy; Z79.2 Long term (current) use of antibiotics; Z79.4 Long term (current) use of insulin; Z88.8 Allergy status to other drugs, medicaments and biological substances
CPT/HCPCS: 36415; 80048; 83605; 85025; 96374; 96375; 99284; J2270; J2405

== ENCOUNTER 2021-12-03 08:37 | Emergency (ER) | payer BC, MEDICAID ==
[~2021-12-03] VITALS: Ht 157.5 cm; Wt 82.7 kg
[~2021-12-03 08:37] MED LIST changes: -HYDR-3973 PO
--- NOTE | 2021-12-03 10:15 | NUR ---
Pt alert, oriented, VSS, no apparent respiratory distress or needs at this time.
[2021-12-03] MEDS ORDERED: azithromycin 250mg tablet PO ONE (11:05)
[2021-12-03] MEDS ORDERED: AZIT250T2 PO (11:08)
[2021-12-03 11:15] VITALS: BP 113/60
--- NOTE | 2021-12-03 11:22 | NUR ---
Pt calling [employer] for ride. Pt d/c
== END 2021-12-03 14:20 | disposition home or self-care (01) ==
LOC: ER 08:37
DX: J20.9 Acute bronchitis, unspecified (principal); E11.43 Type 2 diabetes mellitus with diabetic autonomic (poly)neuropathy; I48.91 Unspecified atrial fibrillation; I25.10 Atherosclerotic heart disease of native coronary artery without angina pectoris; I25.2 Old myocardial infarction; J44.9 Chronic obstructive pulmonary disease, unspecified; E11.22 Type 2 diabetes mellitus with diabetic chronic kidney disease; I12.9 Hypertensive chronic kidney disease with stage 1 through stage 4 chronic kidney disease, or unspecified chronic kidney disease; N18.9 Chronic kidney disease, unspecified; E03.9 Hypothyroidism, unspecified; G89.29 Other chronic pain; G47.30 Sleep apnea, unspecified; Z87.01 Personal history of pneumonia (recurrent); Z95.5 Presence of coronary angioplasty implant and graft; Z90.49 Acquired absence of other specified parts of digestive tract; Z87.891 Personal history of nicotine dependence; Z56.0 Unemployment, unspecified; Z88.8 Allergy status to other drugs, medicaments and biological substances; Z79.2 Long term (current) use of antibiotics; Z79.82 Long term (current) use of aspirin; Z79.4 Long term (current) use of insulin; Z79.899 Other long term (current) drug therapy
CPT/HCPCS: 71045; 99283

== ENCOUNTER 2022-02-17 17:42 | Emergency (ER) | payer BC, MEDICAID ==
[~2022-02-17] VITALS: Ht 157.5 cm; Wt 83.3 kg
[2022-02-17 17:46] VITALS: BP 173/76
== END 2022-02-17 21:26 | disposition home or self-care (01) ==
LOC: ER 17:44
DX: M25.572 Pain in left ankle and joints of left foot (principal); I11.9 Hypertensive heart disease without heart failure; J44.9 Chronic obstructive pulmonary disease, unspecified; E11.9 Type 2 diabetes mellitus without complications; E11.22 Type 2 diabetes mellitus with diabetic chronic kidney disease; I13.10 Hypertensive heart and chronic kidney disease without heart failure, with stage 1 through stage 4 chronic kidney disease, or unspecified chronic kidney disease; N18.9 Chronic kidney disease, unspecified; F41.9 Anxiety disorder, unspecified; Z88.8 Allergy status to other drugs, medicaments and biological substances; Z79.82 Long term (current) use of aspirin; Z79.84 Long term (current) use of oral hypoglycemic drugs
CPT/HCPCS: 29515; 73610; 73630; 73700; 99284; L1930

== ENCOUNTER 2023-06-08 08:25 | Emergency (ER) | payer MEDICARE, MEDICAID ==
[~2023-06-08] VITALS: Ht 157.5 cm; Wt 82.7 kg
[~2023-06-08 08:25] MED LIST changes: -CEPH-585 PO; -DORZ10DR2 RIGHTEYE; +DORZ10DR26 RIGHTEYE; -INSU100I25 SQ; +INSU100I27 SQ
[2023-06-08] MEDS ORDERED: traMADol 50MG tablet PO ONE (09:30)
[2023-06-08] MEDS ORDERED: acetaminophen 325mg tablet PO ONE (09:30)
[2023-06-08] MEDS ORDERED: LIDOcaine 5% patch TP SCH (09:30)
[2023-06-08] MEDS ORDERED: DICLOFENAC SODIUM 1% gel 1 APPLIC APPLIC TP ONE (11:05)
[2023-06-08] MEDS ORDERED: PRED10TA23 PO ×2 (11:16)
[2023-06-08] MEDS ORDERED: LIDO700A32 TOP (11:16)
[2023-06-08] MEDS ORDERED: DICL20GE TOP (11:16)
[2023-06-08] MEDS ORDERED: CLOT30CR24 TOP (11:18)
[2023-06-08] MEDS ORDERED: PRED5TAB PO (11:19)
[2023-06-08] MEDS ORDERED: ketorolac tromethamine 15mg/ml inj. IM ONE (11:20)
[2023-06-08] MEDS ORDERED: predniSONE 20 mg tablet PO ONE (11:20)
[2023-06-08 12:14] VITALS: BP 156/71; PULSE 65; O2SAT 97
[2023-06-08 12:42] VITALS: RESP 17
[2023-06-08 13:27] VITALS: TEMP 98.1
== END 2023-06-08 13:27 | disposition home or self-care (01) ==
LOC: ER 08:25
DX: M25.561 Pain in right knee (principal); I11.0 Hypertensive heart disease with heart failure; J44.9 Chronic obstructive pulmonary disease, unspecified; E11.9 Type 2 diabetes mellitus without complications; E03.9 Hypothyroidism, unspecified; F41.9 Anxiety disorder, unspecified
CPT/HCPCS: 29505; 73562; 96372; 99284; J1885; J7512

== ENCOUNTER 2023-06-10 12:28 | Emergency (ER) | payer MEDICARE, MEDICAID ==
[~2023-06-10] VITALS: Ht 157.5 cm; Wt 82.7 kg
[~2023-06-10 12:28] MED LIST changes: +CLOT30CR24 TOP; +DICL20GE TOP; +LIDO700A32 TOP; +PRED5TAB PO
[2023-06-10 13:07] LABS: BILIRUBIN,URINE NEGATIVE (Neg); CLARITY,URINE CLEAR (Clear); COLOR,URINE STRAW (Yellow); GLUCOSE, URINE 500 mg/dl (Neg); KETONES,URINE NEGATIVE (Neg); LEUKOCYTE ESTERASE ,URINE NEGATIVE (Neg); NITRITES, URINE NEGATIVE (Neg); OCCULT BLOOD,URINE NEGATIVE (Neg); PROTEIN,URINE NEGATIVE (Neg); UROBILINOGEN,URINE 0.2 E.U/dL (0.2-1.0)
[2023-06-10 13:10] LABS: UA COLLECTION TYPE CLN CATCH MIDSTREAM
[2023-06-10 13:30] LABS: BASOPHILS # (AUTO) 0.1 X10'3 (0-0.2); BASOPHILS % (AUTO) 0.7 % (0-1); EOSINOPHILS # (AUTO) 0.1 X10'3 (0-0.9); EOSINOPHILS % (AUTO) 0.6 % (0-6); HEMATOCRIT 43.7 % (35.0-45.0); LYMPHOCYTES # (AUTO) 1.2 X10'3 (1.1-4.8); LYMPHOCYTES % (AUTO) 14.1 % (21-51); MEAN CORPUSCULAR HEMOGLOBIN 30.6 PG (27.0-31.0); MEAN CORPUSCULAR HGB CONC 34.2 g/dL (33.0-36.5); MEAN CORPUSCULAR VOLUME 89.3 FL (78-98); MEAN PLATELET VOLUME 8.7 FL (7.4-10.4); MONOCYTES # (AUTO) 0.4 X10'3 (0-0.9); MONOCYTES % (AUTO) 4.2 % (2-12); NEUTROPHILS # (AUTO) 6.9 X10'3 (1.8-7.7); NEUTROPHILS % (AUTO) 80.4 % (42-75); PLATELET COUNT 222 X10'3 (140-440); RED BLOOD COUNT 4.89 X10'6 (4.20-5.60); RED CELL DISTRIBUTION WIDTH 14.3 % (11.5-14.5); WHITE BLOOD COUNT 8.6 X10'3 (4.5-11.0)
[2023-06-10 13:41] LABS: ALANINE AMINOTRANSFERASE 32 U/L (12-78); ALBUMIN 4.2 G/DL (3.4-5.0); ALBUMIN/GLOBULIN RATIO 1.3 (1.1-1.5); ALKALINE PHOSPHATASE 86 IU/L (46-116); ANION GAP 13 (8-16); ASPARTATE AMINO TRANSFERASE 24 U/L (10-37); BILIRUBIN,TOTAL 0.4 MG/DL (0.1-1.0); BLOOD UREA NITROGEN 23 MG/DL (7-18); BUN/CREATININE RATIO 19.8 (10.0-20.0); CALCIUM 10.4 MG/DL (8.5-10.1); CHLORIDE 96 MMOL/L (99-107); CREATININE 1.16 MG/DL (0.40-0.90); GLUCOSE 185 MG/DL (70-104); POTASSIUM 3.3 MMOL/L (3.5-5.1); SODIUM 133 MMOL/L (135-145); TOTAL CARBON DIOXIDE 24.5 MMOL/L (24-32); TOTAL PROTEIN 7.5 G/DL (6.4-8.2); eCRCL 37 ML/MIN; eGFR 47 ML/MIN
[2023-06-10 15:29] VITALS: BP 121/70; PULSE 80; O2SAT 98
[2023-06-10 17:23] VITALS: RESP 18
[2023-06-10] MEDS ORDERED: diazepam 5mg tablet PO ONE (17:55)
[2023-06-10] MEDS ORDERED: PRED20TA PO (18:03)
[2023-06-10] MEDS ORDERED: METH-798 PO (18:03)
[2023-06-10 18:57] VITALS: TEMP 98.2
== END 2023-06-10 19:04 | disposition home or self-care (01) ==
LOC: ER 12:29
DX: M25.551 Pain in right hip (principal); I25.10 Atherosclerotic heart disease of native coronary artery without angina pectoris; I25.2 Old myocardial infarction; J44.9 Chronic obstructive pulmonary disease, unspecified; G47.30 Sleep apnea, unspecified; E03.9 Hypothyroidism, unspecified; E11.22 Type 2 diabetes mellitus with diabetic chronic kidney disease; N18.9 Chronic kidney disease, unspecified; F41.9 Anxiety disorder, unspecified; G89.29 Other chronic pain; Z86.711 Personal history of pulmonary embolism; Z98.61 Coronary angioplasty status; Z95.1 Presence of aortocoronary bypass graft; Z90.49 Acquired absence of other specified parts of digestive tract; Z56.0 Unemployment, unspecified; Z88.8 Allergy status to other drugs, medicaments and biological substances
CPT/HCPCS: 36415; 80053; 81003; 82948; 85025; 99283

== ENCOUNTER 2024-03-31 12:30 | Emergency (ER) | payer BC, MEDICAID ==
[~2024-03-31] VITALS: Ht 157.5 cm; Wt 90.0 kg
[~2024-03-31 12:30] MED LIST changes: -CYCL-1 PO; +CYCL-394 PO; +DAPA5TAB PO; +FURO-150 PO; +GABA300C PO; -GABA600T13 PO; -HYDR-4383 PO; -HYDR25TA4 PO; +INSU100V41; -LOPE2CAP PO; +MAGN400C PO; +OMEG-5 PO; +POTA-205 PO; -PRED5TAB PO; +SEMA1PEN3 SUBCUT; +TICA90TA PO; +UBID300C3 PO; +ZINC220T3 PO
[2024-03-31 12:35] VITALS: TEMP 98
[2024-03-31 13:19] LABS: BASOPHILS # (AUTO) 0.1 X10'3 (0-0.2); EOSINOPHILS # (AUTO) 0.2 X10'3 (0-0.9); HEMOGLOBIN 12.2 g/dl (12.0-16.0); MEAN CORPUSCULAR HGB CONC 34.1 g/dL (33.0-36.5); MONOCYTES # (AUTO) 0.7 X10'3 (0-0.9); MONOCYTES % (AUTO) 8.8 % (2-12)
[2024-03-31 13:21] LABS: BASOPHILS % (AUTO) 0.7 % (0-1); EOSINOPHILS % (AUTO) 2.7 % (0-6); HEMATOCRIT 35.7 % (35.0-45.0); LYMPHOCYTES # (AUTO) 1.6 X10'3 (1.1-4.8); LYMPHOCYTES % (AUTO) 20.5 % (21-51); MEAN CORPUSCULAR HEMOGLOBIN 30.2 PG (27.0-31.0); MEAN CORPUSCULAR VOLUME 88.5 FL (78-98); MEAN PLATELET VOLUME 8.3 FL (7.4-10.4); NEUTROPHILS # (AUTO) 5.4 X10'3 (1.8-7.7); NEUTROPHILS % (AUTO) 67.3 % (42-75); PLATELET COUNT 252 X10'3 (140-440); RED BLOOD COUNT 4.04 X10'6 (4.20-5.60); RED CELL DISTRIBUTION WIDTH 15.7 % (11.5-14.5)
[2024-03-31 13:41] LABS: ALBUMIN 3.5 G/DL (3.4-5.0); ANION GAP 9 (8-16); BLOOD UREA NITROGEN 34 MG/DL (7-18); BUN/CREATININE RATIO 25.4 (10.0-20.0); CALCIUM 9.5 MG/DL (8.5-10.1); CHLORIDE 87 MMOL/L (99-107); CREATININE 1.34 MG/DL (0.40-0.90); GLUCOSE 99 MG/DL (70-104); POTASSIUM 3.1 MMOL/L (3.5-5.1); PRO BRAIN NATRIURETIC PEPTIDE 1915 PG/ML (0-125); SODIUM 125 MMOL/L (135-145); TOTAL CARBON DIOXIDE 28.7 MMOL/L (24-32); eCRCL 32 ML/MIN; eGFR 39 ML/MIN
[2024-03-31] MEDS: potassium Cl 20 mEq SR tablet PO ONE (14:25)
[2024-03-31] MEDS: potassium CL 10mEq/100ml bag 100 ML IV ONE (14:25)
[2024-03-31 14:27] LABS: ALANINE AMINOTRANSFERASE 27 U/L (12-78); ALBUMIN 3.4 G/DL (3.4-5.0); ALBUMIN/GLOBULIN RATIO 1.1 (1.1-1.5); ALKALINE PHOSPHATASE 77 IU/L (46-116); ASPARTATE AMINO TRANSFERASE 25 U/L (10-37); BILIRUBIN,DIRECT 0.1 MG/DL (0-0.3); BILIRUBIN,TOTAL 0.3 MG/DL (0.1-1.0); MAGNESIUM 2.1 MG/DL (1.5-2.4); TOTAL PROTEIN 6.6 G/DL (6.4-8.2)
[2024-03-31 16:03] VITALS: BP 124/65; PULSE 53; RESP 16; O2SAT 98
== END 2024-03-31 16:04 | disposition home or self-care (01) ==
LOC: ER 12:31
DX: R00.1 Bradycardia, unspecified (principal); I95.9 Hypotension, unspecified; E11.42 Type 2 diabetes mellitus with diabetic polyneuropathy; E11.22 Type 2 diabetes mellitus with diabetic chronic kidney disease; N18.9 Chronic kidney disease, unspecified; I25.10 Atherosclerotic heart disease of native coronary artery without angina pectoris; J44.9 Chronic obstructive pulmonary disease, unspecified; E03.9 Hypothyroidism, unspecified; F41.9 Anxiety disorder, unspecified; Z88.8 Allergy status to other drugs, medicaments and biological substances; Z79.82 Long term (current) use of aspirin; Z79.899 Other long term (current) drug therapy; Z79.1 Long term (current) use of non-steroidal anti-inflammatories (NSAID); Z79.2 Long term (current) use of antibiotics; Z98.890 Other specified postprocedural states
CPT/HCPCS: 36415; 71045; 80048; 80076; 83735; 83880; 84484; 85025; 93005; 99291

== ENCOUNTER 2024-12-13 10:52 | Emergency (ER) | payer BC, MEDICAID ==
[~2024-12-13] VITALS: Ht 165.1 cm; Wt 87.7 kg
[~2024-12-13 10:52] MED LIST changes: +CITA-178 PO; -CITA20TA28 PO; -FURO-150 PO
[2024-12-13 10:55] VITALS: TEMP 98.8
--- NOTE | 2024-12-13 10:57 | ELECTROCARDIOGRAPH REPORT ---
[facility] Test Date: 2024-12-13 Test Time: 10:55:38 Pat Name: DIANE BURK Department: EMERGENCY ROOM Room: Gender: F [employer]mo Business Analyst: LIANA : 1955 Requested By: MELLISA PISANO Order Number: [id number] Reading MD: Measurements Intervals [place] Rate: 47 P: 12 PA: 187 QRS: -7 QRSD: 122 T: 148 QT: 604 QTc: 534 Interpretive Statements Sinus bradycardia IVCD, consider atypical LBBB Please click the below link to view image of tracing.
[2024-12-13 11:09] LABS: BASOPHILS % (AUTO) 0.8 % (0-1); EOSINOPHILS % (AUTO) 0.6 % (0-6); HEMATOCRIT 37.1 % (35.0-45.0); HEMOGLOBIN 12.3 g/dl (12.0-16.0); LYMPHOCYTES % (AUTO) 16.3 % (21-51); MEAN CORPUSCULAR HEMOGLOBIN 29.5 PG (27.0-31.0); MEAN CORPUSCULAR HGB CONC 33.1 g/dL (33.0-36.5); MEAN CORPUSCULAR VOLUME 89.3 FL (78-98); MEAN PLATELET VOLUME 8.2 FL (7.4-10.4); MONOCYTES # (AUTO) 0.8 X10'3 (0-0.9); MONOCYTES % (AUTO) 13.1 % (2-12); NEUTROPHILS # (AUTO) 4.1 X10'3 (1.8-7.7); NEUTROPHILS % (AUTO) 69.2 % (42-75); PLATELET COUNT 188 X10'3 (140-440); RED BLOOD COUNT 4.15 X10'6 (4.20-5.60); RED CELL DISTRIBUTION WIDTH 16.6 % (11.5-14.5); WHITE BLOOD COUNT 5.9 X10'3 (4.5-11.0)
--- NOTE | 2024-12-13 11:26 | RADIOLOGY REPORT ---
CHEST RADIOGRAPH Indication: cough with sob Technique: Single frontal view of the chest was obtained COMPARISON: DI CHEST,SINGLE VIEW on DOS: 03/31/24, DI CHEST,SINGLE VIEW on DOS: 03/16/24, CHEST,SINGLE VIEW on DOS: 07/24/22, CHEST,SINGLE VIEW on DOS: 12/03/21 FINDINGS: Lines and Tubes: Median sternotomy Lungs: Mild congestion Pleura: No effusion. No pneumothorax. Cardiomediastinal contours: Cardiomegaly Bones: Unremarkable IMPRESSION: Mild pulmonary vascular congestion
[2024-12-13 11:44] LABS: ALBUMIN 3.3 G/DL (3.4-5.0); ANION GAP 11 (8-16); BLOOD UREA NITROGEN 41 MG/DL (7-18); BUN/CREATININE RATIO 24.6 (10.0-20.0); CALCIUM 9.3 MG/DL (8.5-10.1); CHLORIDE 93 MMOL/L (99-107); CREATININE 1.67 MG/DL (0.40-0.90); GLUCOSE 93 MG/DL (70-104); POTASSIUM 3.2 MMOL/L (3.5-5.1); PRO BRAIN NATRIURETIC PEPTIDE 3003 PG/ML (0-125); SODIUM 134 MMOL/L (135-145); TOTAL CARBON DIOXIDE 29.7 MMOL/L (24-32); eCRCL 29 ML/MIN; eGFR 31 ML/MIN
--- NOTE | 2024-12-13 11:53 | Physician Documentation ---
History of Present Illness ~ Chief Complaint: Cough Stated Complaint: SOB/COUGH Time Seen by MD: 11:49 Primary Medical Doctor: DR SEO Mode of Arrival: EMS HPI 69-year-old female who presents to the emergency department with a complaint of shortness of breath and cough. Timing/Duration: days Cough Severity/Quality: Reports: mild Prior Episode/Causes: frequent episodes Modifying Factors: improves with coughing Associated Symptoms: chest pain/soreness, cough Medication Reconciliation Allergies: Coded Allergies: benzoin (Unverified Allergy, Unknown, 12/13/24) metformin (Unverified Allergy, Unknown, 12/13/24) Scheduled Aspirin (Aspirin EC), 1 TABLET PO DAILY, (Reported) Bimatoprost (Lumigan), 1 DROP RIGHTEYE HS, (Reported) Brimonidine Tartrate (Alphagan P), 1 DROP RIGHTEYE BID, (Reported) Budesonide/Formoterol Fumarate (Symbicort 160-4.5 Mcg Inhaler), 2 PUFFS INH BID, (Reported) Carvedilol (Carvedilol), 1 TAB PO BID, (Reported) Citalopram Hydrobromide* (Celexa*), 1 TAB PO DAILY, (Reported) Clotrimazole (Clotrimazole), 1 APPLIC TOP Q12H Cyclobenzaprine HCl (Cyclobenzaprine HCl), 1 TAB PO HS, (Reported) Dapagliflozin Propanediol (Farxiga), 1 TAB PO DAILY, (Reported) Diclofenac Sodium (Voltaren Arthritis Pain), 1 APPLIC TOP QID Docosahexanoic Acid/Epa (Fish Oil 1,000 Mg Softgel), 1 CAP PO Q8H, (Reported) Dorzolamide HCl (Dorzolamide HCl), 1 DROP RIGHTEYE BID, (Reported) Gabapentin (Neurontin), 1 CAP PO BID Insulin Detemir (Levemir Flextouch), 32 UNITS SQ am, (Reported) Insulin Detemir (Levemir Flextouch), 28 UNITS SQ pm, (Reported) Levothyroxine Sodium (Levothyroxine Sodium), 1 TABLET PO DAILY, (Reported) Lidocaine (Lidoderm), 1 PATCH TOP DAILY Liraglutide (Victoza), 1.8 MG SQ DAILY, (Reported) Lisinopril* (Lisinopril*), 40 MG PO DAILY, (Reported) Loratadine (Loratadine), 1 TAB PO DAILY, (Reported) Magnesium Oxide (Magnesium), 1 CAP PO DAILY, (Reported) Montelukast Sodium (Montelukast Sodium), 10 MG PO DAILY, (Reported) Multivitamin (Multi-Vitamin Daily), 1 EACH PO DAILY, (Reported) Potassium Chloride (Potassium Chloride), 1 TAB PO DAILY, (Reported) Prednisolone Sod Phosphate (Prednisol), 1 DROP LEFTEYE BID, (Reported) Semaglutide (Ozempic), 1 MG SUBCUT Q7D, (Reported) Simvastatin* (Zocor*), 40 MG PO HS, (Reported) Ticagrelor (Brilinta), 90 MG PO BID Ubidecarenone (Co Q-10), 1 CAP PO Q12H, (Reported) Zinc Sulfate (Zinc), 1 TAB PO DAILY, (Reported) Scheduled PRN Albuterol Sulfate (Ventolin Hfa), 2 PUFFS INH Q6H PRN PRN for SOB or wheezing, (Reported) Nitroglycerin SL* (Nitrostat SL*), 1 TAB SL Q5MIN PRN for Chest pain Q5min PRNx3-call MD, (Reported) Miscellaneous Medications Insulin Degludec (Tresiba), (Reported) Past Medical History Past Medical History: Peripheral Neuropathy, Glaucoma, Atrial Fibrillation, Coronary Artery Disease, Myocardial Infarction, Bronchitis, COPD, Pulmonary Embolism, Sleep Apnea, Inflammatory Bowel Dz, Chronic Kidney Disease, Diabetes, Hypothyroidism, Thyroid (unspecified), Chronic Pain, Anxiety Past Surgical History: angioplasty, appendectomy, coronary bypass surgery, oth er Other Past Surgical History: D&C, CABGx3 Other Past Family History: NONCONTRIBUTORY Alcohol Use: None Drug Use: none Lives with: Spouse Lives In: Home Occupation: unemployed Physical Exam Vital Signs: Temperature: 98.8, Source: Temporal, Heart Rate: 48, Respiratory Rate: 20, BP: 116/46, Pulse Oximetry: 100, Weight: 87.730 Oxygen Flow Rate: 0 Progress Results/Orders Results/Orders Orders - MELLISA PISANO DO Saline Lock (12/13/24 10:53) Oxygen (12/13/24 10:53) Chest,Single View (12/13/24 10:53) Cult Throat + R/O Beta Strep (12/13/24 16:18) Completed Orders - MELLISA PISANO DO Cbc/Diff (12/13/24 10:53) Chest,Single View (12/13/24 10:53) BMP (12/13/24 10:53) PBNP (12/13/24 10:53) Electrocardiogram (12/13/24 10:54) Hs Troponin I W Calculations (12/13/24 15:31) Strep A Rapid (12/13/24 15:31) Furosemide Inj (Lasix Inj) (12/13/24 15:35) Furosemide Inj (Lasix Inj) (12/13/24 15:45) Medications Received in ER Medications (Trade) Dose Ordered Sig/Oni Route PRN Reason Start Time Stop Time Status Last Admin Dose Admin (Lasix inj) 60 mg ONCE ONCE IV 12/13/24 15:35 12/13/24 15:36 DC 12/13/24 15:49 60 MG Vital Signs 12/13/24 12/13/24 12/13/24 12/13/24 10:55 11:02 12:00 15:49 Temp 98.8 Pulse 48 46 48 Resp 20 20 18 16 B/P (MAP) 116/46 116/52 (73) 112/56 (74) Pulse Ox 100 88 97 O2 Flow Rate 0 0 0 Laboratory Tests Test 12/13/24 10:58 12/13/24 15:41 12/13/24 16:00 White Blood Count 5.9 Red Blood Count 4.15 L Hemoglobin 12.3 Hematocrit 37.1 Mean Corpuscular Volume 89.3 Mean Corpuscular Hemoglobin 29.5 Mean Corpuscular Hemoglobin Concent 33.1 Red Cell Distribution Width 16.6 H Platelet Count 188 Mean Platelet Volume 8.2 Neutrophils (%) (Auto) 69.2 Lymphocytes (%) (Auto) 16.3 L Monocytes (%) (Auto) 13.1 H Eosinophils (%) (Auto) 0.6 Basophils (%) (Auto) 0.8 Neutrophils # (Auto) 4.1 Lymphocytes # (Auto) 1.0 L Monocytes # (Auto) 0.8 Eosinophils # (Auto) 0.0 Basophils # (Auto) 0.0 CBC Comment Sodium Level 134 L Potassium Level 3.2 L Chloride Level 93 L Carbon Dioxide Level 29.7 Anion Gap 11 Blood Urea Nitrogen 41 H Creatinine 1.67 H Estimated GFR/1.73 m2 31 BUN/Creatinine Ratio 24.6 H Glucose Level 93 Calcium Level 9.3 Pro-B-Type Natriuretic Peptide 3003 H Albumin 3.3 L Chemistry Comments Troponin I High Sensitivity 48 Group A Streptococcus Rapid Negative EKG/XRAY/CT/US/VASC/MRI EKG : Additional Comment Sinus bradycardia rate of 47 normal axis, Q-wave in lead three and AVF inferior infarct age undetermined, T-wave inversion in lead V1 and V2 and flattened T- waves in V3 and V4, abnormal EKG. Medical Decision Making Differential Dx:Considerations: Include: Allergic rhinitis, Influenza, Otitis media, Pharyngitis-Streptoccal, Pharyngitis-Viral, Pnuemonitis Departure Disposition: HOME / SELF CARE / HOMELESS Impression: Primary Impression: CHF (congestive heart failure) Additional Impressions: Cough Sore throat Condition: Improved Discharge Instructions: Cough, Adult, Heart Failure Exacerbation Additional Instructions: Please use your Lasix at home cut your fluid volume back to 1.5 L a day, follow up with your primary care provider if you have worsening symptoms please return to the ER for further evaluation. Referrals: NO PRIMARY CARE PROVIDER (PCP) Education Educated: Patient Educated regarding: diagnosis, treatment, prognosis Signature Scribe Signature: none Attestation: Dictated by myself MELLISA PISANO DO December 13, 2024 11:53
[2024-12-13] MEDS: furosemide 10 MG/1 ML 10ml inj IV ONE ×2 (15:47→15:49)
[2024-12-13 15:49] VITALS: BP 112/56; PULSE 48; RESP 16; O2SAT 97
[2024-12-13 16:18] LABS: STREP A SCREEN NEGATIVE (Neg)
== END 2024-12-13 18:42 | disposition home or self-care (01) ==
LOC: ER 10:52
DX: J02.9 Acute pharyngitis, unspecified (principal); I50.9 Heart failure, unspecified; E03.9 Hypothyroidism, unspecified; E11.22 Type 2 diabetes mellitus with diabetic chronic kidney disease; E11.42 Type 2 diabetes mellitus with diabetic polyneuropathy; G47.30 Sleep apnea, unspecified; I25.10 Atherosclerotic heart disease of native coronary artery without angina pectoris; I48.91 Unspecified atrial fibrillation; J44.9 Chronic obstructive pulmonary disease, unspecified; N18.9 Chronic kidney disease, unspecified; Z79.82 Long term (current) use of aspirin; Z88.8 Allergy status to other drugs, medicaments and biological substances; Z90.49 Acquired absence of other specified parts of digestive tract; Z95.1 Presence of aortocoronary bypass graft
CPT/HCPCS: 36415; 71045; 80048; 83880; 84484; 85025; 87081; 87880; 93005; 96374; 99285; J1938

== ENCOUNTER 2025-01-19 12:01 | Emergency (ER) | payer BC, MEDICAID ==
[~2025-01-19] VITALS: Ht 156.2 cm; Wt 85.0 kg
[~2025-01-19 12:01] MED LIST changes: +LIDO-52 TOP; -LIDO700A32 TOP
[2025-01-19 12:04] VITALS: TEMP 98.5
--- NOTE | 2025-01-19 12:13 | ELECTROCARDIOGRAPH REPORT ---
[facility] Test Date: 2025-01-19 Test Time: 12:08:47 Pat Name: DIANE BURK Department: EMERGENCY ROOM Room: Gender: F Adoption Agent: AVELINO : 1955 Requested By: BRANDI MONAE Order Number: [id number] Reading MD: Measurements Intervals [place] Rate: 52 P: 87 AR: 223 QRS: 11 QRSD: 109 T: 159 QT: 434 QTc: 404 Interpretive Statements Sinus bradycardia Prolonged AR interval Repol abnrm suggests ischemia, lateral leads Please click the below link to view image of tracing.
[2025-01-19 12:42] LABS: BASOPHILS # (AUTO) 0.1 X10'3 (0-0.2); BASOPHILS % (AUTO) 0.8 % (0-1); EOSINOPHILS # (AUTO) 0.2 X10'3 (0-0.9); EOSINOPHILS % (AUTO) 2.1 % (0-6); HEMOGLOBIN 12.1 g/dl (12.0-16.0); LYMPHOCYTES # (AUTO) 2.2 X10'3 (1.1-4.8); LYMPHOCYTES % (AUTO) 24.1 % (21-51); MEAN CORPUSCULAR HEMOGLOBIN 30.6 PG (27.0-31.0); MEAN CORPUSCULAR HGB CONC 33.6 g/dL (33.0-36.5); MEAN PLATELET VOLUME 8.3 FL (7.4-10.4); MONOCYTES # (AUTO) 0.7 X10'3 (0-0.9); MONOCYTES % (AUTO) 7.7 % (2-12); NEUTROPHILS # (AUTO) 5.9 X10'3 (1.8-7.7); NEUTROPHILS % (AUTO) 65.3 % (42-75); PLATELET COUNT 254 X10'3 (140-440); RED BLOOD COUNT 3.96 X10'6 (4.20-5.60); RED CELL DISTRIBUTION WIDTH 16.4 % (11.5-14.5); WHITE BLOOD COUNT 9.1 X10'3 (4.5-11.0)
--- NOTE | 2025-01-19 12:53 | RADIOLOGY REPORT ---
CHEST RADIOGRAPH Indication: CP Technique: Single frontal view of the chest was obtained Comparison: None FINDINGS: The cardiac silhouette is unremarkable. The lungs demonstrate no pulmonary airspace consolidation. Th e pulmonary vasculature is unremarkable. There is no pleural effusion.. There is no pneumothorax. Me todd sternotomy wires. IMPRESSION: No pulmonary airspace consolidation.
[2025-01-19 13:09] LABS: ALBUMIN 3.6 G/DL (3.4-5.0); ANION GAP 9 (8-16); BLOOD UREA NITROGEN 42 MG/DL (7-18); BUN/CREATININE RATIO 26.4 (10.0-20.0); CALCIUM 9.4 MG/DL (8.5-10.1); CHLORIDE 93 MMOL/L (99-107); CREATININE 1.59 MG/DL (0.40-0.90); GLUCOSE 80 MG/DL (70-104); POTASSIUM 3.4 MMOL/L (3.5-5.1); SODIUM 134 MMOL/L (135-145); TOTAL CARBON DIOXIDE 32.3 MMOL/L (24-32); eCRCL 26 ML/MIN; eGFR 32 ML/MIN
--- NOTE | 2025-01-19 13:09 | Physician Documentation ---
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 She complained of shortness of breathe, associated with a orthopnea and PND for the past couple of months. Endorses decreased energy levels, easy fatigability, tiredness which has been more from the past one month. Denied chest pain, loss of consci ousness, palpitations, fever, swelling of legs, pain abdomen, abdominal distention, degree urine output, weakness of limbs, deviation of angle of mouth, slurring of speech, drooping of eyelids. She reported that she got a coronary artery disease in March 2024 but she was offered medical management rather than stents and CABG. she has a brand communications manager, Dr. Cagle. She showed the vitals monitoring chart and it showed low blood pressures & low heart rate. Heart rate was dropping from 60s to 50s from 03/31/2024 but it never came down to less than 50s. She do reports discontinuation of carvedilol and lisinopril., Medication Reconciliation Allergies: Coded Allergies: benzoin (Unverified Allergy, Unknown, 12/13/24) metformin (Unverified Allergy, Unknown, 12/13/24) Scheduled Aspirin (Aspirin EC), 1 TABLET PO DAILY, (Reported) Bimatoprost (Lumigan), 1 DROP RIGHTEYE HS, (Reported) Brimonidine Tartrate (Alphagan P), 1 DROP RIGHTEYE BID, (Reported) Budesonide/Formoterol Fumarate (Symbicort 160-4.5 Mcg Inhaler), 2 PUFFS INH BID, (Reported) Carvedilol (Carvedilol), 1 TAB PO BID, (Reported) Citalopram Hydrobromide* (Celexa*), 1 TAB PO DAILY, (Reported) Clotrimazole (Clotrimazole), 1 APPLIC TOP Q12H Cyclobenzaprine HCl (Cyclobenzaprine HCl), 1 TAB PO HS, (Reported) Dapagliflozin Propanediol (Farxiga), 1 TAB PO DAILY, (Reported) Diclofenac Sodium (Voltaren Arthritis Pain), 1 APPLIC TOP QID Docosahexanoic Acid/Epa (Fish Oil 1,000 Mg Softgel), 1 CAP PO Q8H, (Reported) Dorzolamide HCl (Dorzolamide HCl), 1 DROP RIGHTEYE BID, (Reported) Gabapentin (Neurontin), 1 CAP PO BID Insulin Detemir (Levemir Flextouch), 32 UNITS SQ am, (Reported) Insulin Detemir (Levemir Flextouch), 28 UNITS SQ pm, (Reported) Levothyroxine Sodium (Levothyroxine Sodium), 1 TABLET PO DAILY, (Reported) Lidocaine (Lidoderm), 1 PATCH TOP DAILY Liraglutide (Victoza), 1.8 MG SQ DAILY, (Reported) Lisinopril* (Lisinopril*), 40 MG PO DAILY, (Reported) Loratadine (Loratadine), 1 TAB PO DAILY, (Reported) Magnesium Oxide (Magnesium), 1 CAP PO DAILY, (Reported) Montelukast Sodium (Montelukast Sodium), 10 MG PO DAILY, (Reported) Multivitamin (Multi-Vitamin Daily), 1 EACH PO DAILY, (Reported) Potassium Chloride (Potassium Chloride), 1 TAB PO DAILY, (Reported) Prednisolone Sod Phosphate (Prednisol), 1 DROP LEFTEYE BID, (Reported) Semaglutide (Ozempic), 1 MG SUBCUT Q7D, (Reported) Simvastatin* (Zocor*), 40 MG PO HS, (Reported) Ticagrelor (Brilinta), 90 MG PO BID Ubidecarenone (Co Q-10), 1 CAP PO Q12H, (Reported) Zinc Sulfate (Zinc), 1 TAB PO DAILY, (Reported) Scheduled PRN Albuterol Sulfate (Ventolin Hfa), 2 PUFFS INH Q6H PRN PRN for SOB or wheezing, (Reported) Nitroglycerin SL* (Nitrostat SL*), 1 TAB SL Q5MIN PRN for Chest pain Q5min PRNx3-call MD, (Reported) Miscellaneous Medications Insulin Degludec (Tresiba), (Reported) Past Medical History Past Medical History: Peripheral Neuropathy, Diabetic Retinopathy, Glaucoma, Atrial Fibrillation, Coronary Artery Disease, Myocardial Infarction, Bronchitis, COPD, Pulmonary Embolism, Sleep Apnea, Inflammatory Bowel Dz, Chronic Kidney Disease, Diabetes, Hypothyroidism, Thyroid (unspecified), Chronic Pain, Anxiety Past Surgical History: angioplasty, appendectomy, coronary bypass surgery, other Other Past Surgical History: D&C, CABGx3 Other Past Family History: NONCONTRIBUTORY Smoking Status: Former smoker Alcohol Use: None Drug Use: none Lives with: Spouse Lives In: Home Occupation: unemployed Review of Systems All Other Systems at this time: Reviewed and Negative ROS Reviewed in full are negative except for positive pertinent as in the HPI Physical Exam Vital Signs: Temperature: 98.5, Heart Rate: 47, Respiratory Rate: 16, BP: 106/57, Pulse Oximetry: 97, Weight: 85.000 Oxygen Flow Rate: 0 Physical Exam General: The patient is well developed, well nourished, nontoxic appearing and is in no acute distress. Skin: [place], warm and dry with no rashes. HEENT: Head was normocephalic and atraumatic. Eyes - pupils equal, round, reactive to light and accommodation. Extraocular movements were intact. Conjunctivae were nonicteric. The mouth and oropharynx were clear with moist mucous membranes. Neck: Supple and nontender. There was no jugular venous distention, lymphadenopathy, thyromegaly or masses. Chest: Clear to auscultation bilaterally without wheezes, rales or rhonchi. No accessory muscle use. Heart: Bradycardia is present.. S1, S2. No murmurs. Palpation of the chest wall was normal. Abdomen: Soft, nontender and nondistended. Positive bowel sounds. No guarding or rebound. No hepatosplenomegaly or palpable masses. Extremities: No cyanosis, clubbing or edema. The patient moves all extremities. Pulses were equal and symmetric. Neurologic: Motor sensory grossly intact Psychologic: The patient was oriented to person, place and time. The patient demonstrated appropriate judgement and insight Progress Results/Orders Results/Orders Orders - LANCE RIGGS, TRI Urinalysis, Cult If Indicated (01/19/25 13:18) Straight Cath For Urine Sample (01/19/25 13:18) Stat Ekg (01/19/25 ) Completed Orders - LANCE RIGGS RES Normal Saline 500ml Iv Soln (Sodium Chlo (01/19/25 13:15) Add On Test (01/19/25 13:16) Potassium Cl Sr Tablet (K-Dur Tablet) (01/19/25 14:14) Vital Signs 01/19/25 01/19/25 01/19/25 12:04 12:29 12:48 Temp 98.5 Pulse 49 47 Resp 18 16 B/P (MAP) 109/57 106/57 (73) Pulse Ox 98 97 O2 Flow Rate 0 0 Laboratory Tests Test 01/19/25 12:15 01/19/25 13:01 01/19/25 13:54 White Blood Count 9.1 Red Blood Count 3.96 L Hemoglobin 12.1 Hematocrit 36.0 Mean Corpuscular Volume 91.0 Mean Corpuscular Hemoglobin 30.6 Mean Corpuscular Hemoglobin Concent 33.6 Red Cell Distribution Width 16.4 H Platelet Count 254 Mean Platelet Volume 8.3 Neutrophils (%) (Auto) 65.3 Lymphocytes (%) (Auto) 24.1 Monocytes (%) (Auto) 7.7 Eosinophils (%) (Auto) 2.1 Basophils (%) (Auto) 0.8 Neutrophils # (Auto) 5.9 Lymphocytes # (Auto) 2.2 Monocytes # (Auto) 0.7 Eosinophils # (Auto) 0.2 Basophils # (Auto) 0.1 CBC Comment Sodium Level 134 L Potassium Level 3.4 L Chloride Level 93 L Carbon Dioxide Level 32.3 H Anion Gap 9 Blood Urea Nitrogen 42 H Creatinine 1.59 H Estimated GFR/1.73 m2 32 BUN/Creatinine Ratio 26.4 H Glucose Level 80 Calcium Level 9.4 Total Bilirubin 0.4 Aspartate Amino Transf (AST/SGOT) 26 Alanine Aminotransferase (ALT/SGPT) 30 Alkaline Phosphatase 96 Troponin I High Sensitivity 26 25 Pro-B-Type Natriuretic Peptide 1259 H Total Protein 7.2 Albumin 3.6 Globulin 3.6 Albumin/Globulin Ratio 1.0 L Thyroid Stimulating Hormone (TSH) 2.47 Chemistry Comments Glucometer 77 Troponin I High Sens Percent Delta 3 Troponin I Hi Sens Absolute Change -1 Medical Decision Making Findings DIZZINESS- symptomatic bradycardia Evaluated with CBC, CMP,TSH, EKG, chest x-ray EKG showing prolonged [place] interval and left axis deviation s/o first-degree AV block and LAFB CBC is normal Hyponatremia, hypokalemia, hypochloremia, mild increase in CO2 Troponin - negative ProBNP is elevated , 1259 Serum creatinine is elevated ,1.59, BUN to creatinine ratio more than 20 likely suggestive of prerenal, DAVE on chronic kidney disease Patient is to following Dr. Cagle and PCP Heart rate is improved to 57 from 47. We offered the hospital admission services for the patient but she denied it she does not want to get admitted. Discussed with Dr. Douglas and planed the discharge. Call 911 or visit ER if symptomatic, Continue to monitor heart rate and blood pressure at home and touch base with the brand communications manager, Dr. Cagle & PCP Differential Dx:Considerations: Include: dysrhythmia, hypotension Departure Disposition: HOME / SELF CARE / HOMELESS Impression: Primary Impression: Dizziness Additional Impressions: Symptomatic bradycardia Acute kidney injury superimposed on chronic kidney disease Pre-syncope Condition: Guarded Discharge Instructions: Dizziness, Near-Syncope Referrals: NO PRIMARY CARE PROVIDER (PCP) Education Educated: Patient Educated regarding: diagnosis, treatment, prognosis, need for follow up Signature Scribe Signature: The note accurately reflects work and decisions made by me.Lance Riggs - Resident 01/19/25 14:19 Attestation: The note accurately reflects work and decisions made by me.Lance Riggs - Resident 01/19/25 14:19 LANCE RIGGS, RES Jan 19, 2025 13:09
[2025-01-19] MEDS: normal saline 500ml IV soln 500 ML IV ONE (13:15)
[2025-01-19 13:28] LABS: ALANINE AMINOTRANSFERASE 30 U/L (12-78); ALKALINE PHOSPHATASE 96 IU/L (46-116); ASPARTATE AMINO TRANSFERASE 26 U/L (10-37); BILIRUBIN,TOTAL 0.4 MG/DL (0.1-1.0); PRO BRAIN NATRIURETIC PEPTIDE 1259 PG/ML (0-125); TOTAL PROTEIN 7.2 G/DL (6.4-8.2)
[2025-01-19 14:30] LABS: THYROID STIMULATING HORMONE 2.47 ulU/ml (0.34-4.50)
[2025-01-19] MEDS: potassium Cl 20 mEq SR tablet PO STA (15:34)
[2025-01-19 15:55] VITALS: BP 123/67; PULSE 61; RESP 16; O2SAT 95
== END 2025-01-19 15:56 | disposition home or self-care (01) ==
LOC: ER 12:01
DX: R42 Dizziness and giddiness (principal); R06.02 Shortness of breath; E03.9 Hypothyroidism, unspecified; E11.22 Type 2 diabetes mellitus with diabetic chronic kidney disease; N17.9 Acute kidney failure, unspecified; N18.1 Chronic kidney disease, stage 1; E11.319 Type 2 diabetes mellitus with unspecified diabetic retinopathy without macular edema; E11.42 Type 2 diabetes mellitus with diabetic polyneuropathy; E11.51 Type 2 diabetes mellitus with diabetic peripheral angiopathy without gangrene; G47.30 Sleep apnea, unspecified; I25.10 Atherosclerotic heart disease of native coronary artery without angina pectoris; I25.2 Old myocardial infarction; I48.91 Unspecified atrial fibrillation; J44.9 Chronic obstructive pulmonary disease, unspecified; Z87.891 Personal history of nicotine dependence; Z88.8 Allergy status to other drugs, medicaments and biological substances; Z95.1 Presence of aortocoronary bypass graft; Z79.82 Long term (current) use of aspirin
CPT/HCPCS: 36415; 71045; 80053; 82948; 83880; 84443; 84484; 85025; 93005; 99285; J7040